=== PATIENT | female | born 1955 | race Caucasian/White ===

== ENCOUNTER → 2017-06-26 10:57 | Outpatient (CLI) | payer MEDICARE, MEDICAID, SELFPAY | PROVIDERS: Family Provider Family Medicine Geriatric Medicine; PCP Family Medicine Geriatric Medicine; Visit Provider Family Medicine Geriatric Medicine | DX: N39.0 Urinary tract infection, site not specified (principal) | CPT/HCPCS: 87086; 87088; 87186 ==

== ENCOUNTER → 2017-09-04 11:51 | Outpatient (CLI) | payer MEDICARE, MEDICAID, SELFPAY ==
[2017-09-04 12:57] LABS: Absolute Lymphocyte Count 2.09 X10^3/ul (0.83-4.51); Absolute Neutrophil Count 5.9 X10^3/uL (2.0-7.7); Basophil# 0.02 X10^3/uL; Basophil% 0.2 % (0-1); Eosinophil# 0.26 X10^3/uL; Eosinophils% 2.8 % (0-5); Hematocrit 44.6 % (37-47); Hemoglobin 14.6 g/dl (12.0-15.0); Lymphocyte # 2.09 X10^3/ul (4.0); Lymphocyte % 22.8 % (19-41); Mean Corp Hgb Conc 32.7 g/gl (32-36); Mean Corpuscular Hgb 29.2 pg (27.0-32.0); Mean Corpuscular Volume 89.2 fL (81-99); Monocyte# 0.85 X10^3/uL; Monocyte% 9.3 % (0-10); Neutrophil # 5.94 X10^3/uL (2.7-7.7); Neutrophil % 64.8 % (47-70); Platelet Count 212 K/mm3 (150-450); RBC Distribution Width CV 12.1 % (11.6-14.6); White Blood Count 9.2 K/mm3 (4.4-11.0)
[2017-09-04 13:00] LABS: POSITIVE COUNT NO; POSITIVE DIFFERENTIAL NO; POSITIVE MORPHOLOGY NO
[2017-09-04 13:27] LABS: ALB/GLOB Ratio 0.9 RATIO (0.9-2.4); AST(SGOT) 19 U/L (15-37); Alanine Aminotransfer ALT/SGPT 23 U/L (13-56); Albumin, Serum 3.3 g/dL (3.2-5.0); Alkaline Phosphatase 131 U/L (45-117); Anion Gap 6 (5-15); BUN 10 mg/dL (7-18); BUN/Creat Ratio 12.2 RATIO (10-20); Calcium,Total 8.7 mg/dL (8.5-10.1); Chloride 102 mmol/L (98-107); Creatinine, Serum 0.82 mg/dL (0.55-1.02); EST Glomerular Filtration Rate 75 mL/min (>60); Est Glom Filt Rate - Afr Amer 91 mL/min (>60); Globulin 3.8 g/dL (2.2-4.2); Glucose 108 mg/dL (74-106); Potassium 3.8 mmol/L (3.5-5.1); Protein, Total 7.1 g/dL (6.4-8.2); Sodium Level 139 mmol/L (136-145)
[2017-09-05 08:12] LABS: Vitamin D,25 Hydroxy 41.1 ng/mL (29.95-100.01)
== END ==
PROVIDERS: Family Provider Family Medicine Geriatric Medicine; PCP Family Medicine Geriatric Medicine; Visit Provider Family Medicine Geriatric Medicine
DX: E55.9 Vitamin D deficiency, unspecified (principal); R53.83 Other fatigue
CPT/HCPCS: 36415; 80053; 82306; 84443; 85025

== ENCOUNTER → 2017-12-18 13:56 | Outpatient (CLI) | payer MEDICARE, MEDICAID, SELFPAY | PROVIDERS: Family Provider Family Medicine Geriatric Medicine; PCP Family Medicine Geriatric Medicine; Visit Provider Family Medicine Geriatric Medicine | DX: L03.119 Cellulitis of unspecified part of limb (principal) | CPT/HCPCS: 87070; 87077; 87205 ==

== ENCOUNTER → 2018-08-13 14:30 | Outpatient (CLI) | payer MEDICARE, MEDICAID, SELFPAY ==
--- NOTE | 2018-08-13 14:36 | BI_ITS ---
MAMMOGRAPHY - BILATERAL SCREENING 3-D ALIS SYNTHESIS REASON FOR EXAM: Female, 62 years old. Bilateral Screening 3-D tomosynthesis PERTINENT HISTORY: No significant family history. TECHNIQUE: 2-D mammograms and 3-D Alis synthesis of the breast (s) were performed. CAD was performed. COMPARISON: April 18, 2016 FINDINGS: The breast composition is composed of scattered fibroglandular density. No dense spiculated masses or suspicious microcalcifications are identified. No architectural distortion is identified. There is no skin thickening or retraction. There has been no significant change since the prior study. BI/SCREENING MAMM (CAD), BILAT IMPRESSION: No mammographic signs of malignancy. Routine yearly mammograms recommended. ASSESSMENT CATEGORY: BIRADS Category 1: Negative. A letter regarding these results will be sent to the patient by the facility within 30 days. FOLLOW UP RECOMMENDATION: Yearly follow up mammogram recommended. (A) Approximately 10% of breast cancers are not detected by mammography. A normal mammogram should not delay biopsy of a clinically suspicious abnormality. Electronically Signed: Cristian Nolan MD at 12:41 EDT , Service support ,
== END ==
PROVIDERS: Family Provider Family Medicine Geriatric Medicine; PCP Family Medicine Geriatric Medicine; Visit Provider Family Medicine Geriatric Medicine
DX: Z12.31 Encounter for screening mammogram for malignant neoplasm of breast (principal)
CPT/HCPCS: 77063; 77067

== ENCOUNTER → 2018-11-19 13:47 | Outpatient (CLI) | payer MEDICARE, MEDICAID, SELFPAY ==
[2017-02-13 19:28] VITALS: BMI 34.4
[2018-11-19 17:24] LABS: Absolute Neutrophil Count 4.5 X10^3/uL (2.0-7.7); Basophil# 0.02 X10^3/uL; Basophil% 0.2 % (0-1); Eosinophil# 0.23 X10^3/uL; Eosinophils% 2.7 % (0-5); Hematocrit 42.9 % (37-47); Hemoglobin 13.9 g/dl (12.0-15.0); Lymphocyte % 30.6 % (19-41); Mean Corp Hgb Conc 32.4 g/gl (32-36); Mean Corpuscular Hgb 29.1 pg (27.0-32.0); Mean Corpuscular Volume 89.9 fL (81-99); Mean Platelet Vol. 10.3 fl (6.2-12.0); Monocyte# 1.11 X10^3/uL; Monocyte% 13.1 % (0-10); Neutrophil # 4.51 X10^3/uL (2.7-7.7); Platelet Count 202 K/mm3 (150-450); RBC Distribution Width CV 12.1 % (11.6-14.6); RBC Distribution Width SD 39.9 fl (35.1-43.9); Red Blood Count 4.77 M/mm3 (4.2-5.4); White Blood Count 8.5 K/mm3 (4.4-11.0)
[2018-11-19 17:31] LABS: POSITIVE COUNT NO; POSITIVE DIFFERENTIAL NO; POSITIVE MORPHOLOGY NO
[2018-11-19 17:52] LABS: Vitamin D,25 Hydroxy 26.1 ng/mL (29.95-100.01)
[2018-11-19 17:57] LABS: ALB/GLOB Ratio 0.9 RATIO (0.9-2.4); AST(SGOT) 19 U/L (15-37); Alanine Aminotransfer ALT/SGPT 32 U/L (13-56); Albumin, Serum 3.2 g/dL (3.2-5.0); Alkaline Phosphatase 153 U/L (45-117); Anion Gap 9 (5-15); BUN 15 mg/dL (7-18); BUN/Creat Ratio 17.5 RATIO (10-20); Calcium,Total 8.6 mg/dL (8.5-10.1); Chloride 103 mmol/L (98-107); Creatinine, Serum 0.86 mg/dL (0.55-1.02); EST Glomerular Filtration Rate 71 mL/min (>60); Est Glom Filt Rate - Afr Amer 86 mL/min (>60); Globulin 3.5 g/dL (2.2-4.2); Glucose 70 mg/dL (74-106); Potassium 4.2 mmol/L (3.5-5.1); Protein, Total 6.7 g/dL (6.4-8.2); Sodium Level 141 mmol/L (136-145)
== END ==
PROVIDERS: Family Provider Family Medicine Geriatric Medicine; PCP Family Medicine Geriatric Medicine; Visit Provider Family Medicine Geriatric Medicine
DX: E55.9 Vitamin D deficiency, unspecified (principal); R53.83 Other fatigue
CPT/HCPCS: 36415; 80053; 82306; 84443; 85025

== ENCOUNTER → 2019-04-15 14:15 | Outpatient (CLI) | payer MEDICARE, MEDICAID, SELFPAY ==
[2017-02-13 19:28] VITALS: BMI 34.4
[2019-04-15 16:32] LABS: Absolute Lymphocyte Count 2.26 X10^3/uL (0.83-4.51); Absolute Neutrophil Count 4.3 X10^3/uL (2.0-7.7); Basophil# 0.03 X10^3/uL; Basophil% 0.4 % (0-1); Eosinophil# 0.17 X10^3/uL; Eosinophils% 2.2 % (0-5); Hematocrit 43.5 % (37-47); Lymphocyte # 2.26 X10^3/ul (4.0); Lymphocyte % 28.9 % (19-41); Mean Corp Hgb Conc 32.2 g/dL (32-36); Mean Corpuscular Hgb 29.4 pg (27.0-32.0); Mean Corpuscular Volume 91.2 fL (81-99); Monocyte# 1.04 X10^3/uL; Monocyte% 13.3 % (0-10); NRBC Flagged by Analyzer 0 % (0-5); Neutrophil % 54.9 % (47-70); Platelet Count 200 K/mm3 (150-450); RBC Distribution Width CV 11.4 % (11.6-14.6); RBC Distribution Width SD 38.5 fl (35.1-43.9); Red Blood Count 4.77 M/mm3 (4.2-5.4); White Blood Count 7.8 K/mm3 (4.4-11.0)
[2019-04-15 16:40] LABS: Vitamin D,25 Hydroxy 42.3 ng/mL (29.95-100.01)
[2019-04-15 16:49] LABS: ALB/GLOB Ratio 0.9 RATIO (0.9-2.4); AST(SGOT) 15 U/L (15-37); Alanine Aminotransfer ALT/SGPT 21 U/L (13-56); Albumin, Serum 3.3 g/dL (3.2-5.0); Alkaline Phosphatase 118 U/L (45-117); Anion Gap 5 (5-15); BUN 16 mg/dL (7-18); BUN/Creat Ratio 16.6 RATIO (10-20); Calcium,Total 8.9 mg/dL (8.5-10.1); Chloride 106 mmol/L (98-107); Creatinine, Serum 0.96 mg/dL (0.55-1.02); EST Glomerular Filtration Rate 62 mL/min (>60); Est Glom Filt Rate - Afr Amer 75 mL/min (>60); Globulin 3.8 g/dL (2.2-4.2); Glucose 96 mg/dL (74-106); Potassium 3.9 mmol/L (3.5-5.1); Protein, Total 7.1 g/dL (6.4-8.2); Sodium Level 141 mmol/L (136-145); Thyroid Stim Hormone (TSH) 1.61 uIU/mL (0.358-3.74)
== END ==
PROVIDERS: Family Provider Family Medicine Geriatric Medicine; PCP Family Medicine Geriatric Medicine; Visit Provider Family Medicine Geriatric Medicine
DX: E55.9 Vitamin D deficiency, unspecified (principal); R53.83 Other fatigue
CPT/HCPCS: 36415; 80053; 82306; 84443; 85025

== ENCOUNTER → 2019-10-14 13:31 | Outpatient (CLI) | payer MEDICARE, SELFPAY ==
[2017-02-13 19:28] VITALS: BMI 34.4
[2019-10-14 14:35] LABS: Absolute Lymphocyte Count 2.42 X10^3/uL (0.83-4.51); Absolute Neutrophil Count 5.1 X10^3/uL (2.0-7.7); Basophil# 0.04 X10^3/uL; Basophil% 0.4 % (0-1); Eosinophil# 0.27 X10^3/uL; Hematocrit 45.7 % (37-47); Hemoglobin 14.7 g/dL (12.0-15.0); Lymphocyte # 2.42 X10^3/ul (4.0); Lymphocyte % 26.9 % (19-41); Mean Corp Hgb Conc 32.2 g/dL (32-36); Mean Corpuscular Hgb 29.6 pg (27.0-32.0); Mean Platelet Vol. 10.8 fl (6.2-12.0); Monocyte# 1.13 X10^3/uL; Monocyte% 12.5 % (0-10); NRBC Flagged by Analyzer 0 % (0-5); Neutrophil # 5.12 X10^3/uL (2.7-7.7); Neutrophil % 56.9 % (47-70); Platelet Count 224 K/mm3 (150-450); RBC Distribution Width CV 11.4 % (11.6-14.6); RBC Distribution Width SD 38.5 fl (35.1-43.9); Red Blood Count 4.97 M/mm3 (4.2-5.4)
[2019-10-14 14:52] LABS: ALB/GLOB Ratio 0.8 RATIO (0.9-2.4); AST(SGOT) 19 U/L (15-37); Alanine Aminotransfer ALT/SGPT 25 U/L (13-56); Albumin, Serum 3.3 g/dL (3.2-5.0); Alkaline Phosphatase 155 U/L (45-117); Anion Gap 6 (5-15); BUN 13 mg/dL (7-18); Calcium,Total 8.6 mg/dL (8.5-10.1); Chloride 106 mmol/L (98-107); Creatinine, Serum 0.81 mg/dL (0.55-1.02); EST Glomerular Filtration Rate 75 mL/min (>60); Est Glom Filt Rate - Afr Amer 91 mL/min (>60); Globulin 3.9 g/dL (2.2-4.2); Glucose 85 mg/dL (74-106); Potassium 4.3 mmol/L (3.5-5.1); Protein, Total 7.2 g/dL (6.4-8.2); Sodium Level 143 mmol/L (136-145); Thyroid Stim Hormone (TSH) 1.61 uIU/mL (0.358-3.74)
[2019-10-14 15:02] LABS: Vitamin D,25 Hydroxy 29.7 ng/mL
== END ==
PROVIDERS: PCP Family Medicine Geriatric Medicine; Visit Provider Family Medicine Geriatric Medicine
DX: E55.9 Vitamin D deficiency, unspecified (principal); R53.83 Other fatigue
CPT/HCPCS: 36415; 80053; 82306; 84443; 85025

== ENCOUNTER → 2020-05-14 17:38 | Outpatient (CLI) | payer MEDICARE, MEDICAID, SELFPAY | PROVIDERS: PCP Family Medicine Geriatric Medicine; Referring Provider Family Medicine Geriatric Medicine; Visit Provider Family Medicine Geriatric Medicine | DX: R06.89 Other abnormalities of breathing (principal) | CPT/HCPCS: 87635; C9803; U0003 ==

== ENCOUNTER → 2020-06-22 14:24 | Outpatient (CLI) | payer MEDICARE, MEDICAID, SELFPAY ==
[2017-02-13 19:28] VITALS: BMI 34.4
== END ==
PROVIDERS: PCP Family Medicine Geriatric Medicine; Visit Provider Family Medicine Geriatric Medicine
DX: N39.0 Urinary tract infection, site not specified (principal)
CPT/HCPCS: 87077; 87086; 87088; 87186

== ENCOUNTER → 2020-07-08 13:00 | Outpatient (CLI) | payer MEDICARE, MEDICAID, SELFPAY ==
[2017-02-13 19:28] VITALS: BMI 34.4
--- NOTE | 2020-07-08 13:27 | CT_ITS ---
STUDY: LOW DOSE CT LUNG CANCER SCREENING REASON FOR EXAM: Female, 64 years old. LUNG SCREENING RADIATION DOSAGE (If Supplied By Facility): CTDIvol = ( 3.02 ) mGy, DLP = ( 98.92 ) mGycm TECHNIQUE: No contrast was administered. Low dose technique was utilized (average mAS-38 and kVp 120). 1.25 mm axial source images with a slice interval of 1.25-mm were reconstructed in lung windows. 2.5 mm axial source images with a slice interval of 2.5-mm were reconstructed in lung windows. 5.0 mm axial source images with a slice interval of 5.0-mm were reconstructed in soft tissue windows. Nodule measured using lung windows on PACS and/or independent workstation with automated measurement of minimum and maximum diameter. Nodule measurement reported as average diameter rounded to the nearest whole number. Growth is defined as an increase ins size of greater than 1.5 mm. COMPARISON: Comparison is made with prior study dated 10/03/2016. NODULES: No suspicious nodules are seen. Emphysema: Mild degree of emphysematous changes. Mild scarring at the lung bases as well as in the lung apices and anterior aspect of the right middle lobe and lingular segment of the left upper lobe. Endobronchial lesion: None Aorta: Mild atherosclerotic calcific plaque at the level of the aortic arch. Coronary arteries: Coronary artery calcification. Heart: Unremarkable Mediastinal nodes: Small mediastinal lymph nodes. Calcified right hilar lymph nodes. Other chest and abdominal findings: CT/Low Dose CT Lung Screening IMPRESSION: Lung-RADS category 2 - Continue annual screening with LDCT in 12 months. IMPORTANT NOTES FOR USE: ACR Lung-RADS Version 1.0 Assessment Categories Release Date: September 22, 2013 Category: Coded 0-4 bases on nodule(s) with highest degree of suspicion. Negative screen is defined as categories 1 and 2; a positive screen is defined as categories 3 and 4. Category 3 and 4A nodules that are unchanged on interval CT should be coded as category 2, and individuals returned to screening in 12 months. Category 4X: Category 3 or 4 nodules with additional imaging findings that increase the suspicion of lung cancer, such as spiculation, GGN that doubles in size in 1 year, enlarged lymph notes, etc. Category Modifiers: S (significant finding unrelated to lung cancer) and C (prior history of treated lung cancer) may be added to the 0-4 Lung-RADS Electronically Signed: Hemal Hart MD at 12:55 EST , Service support ,
== END ==
PROVIDERS: PCP Family Medicine Geriatric Medicine; Referring Provider Family Medicine Geriatric Medicine; Visit Provider Family Medicine Geriatric Medicine
DX: Z12.2 Encounter for screening for malignant neoplasm of respiratory organs (principal); Z87.891 Personal history of nicotine dependence; R05 Cough
CPT/HCPCS: 71271

== ENCOUNTER → 2020-07-20 14:25 | Outpatient (CLI) | payer MEDICARE, MEDICAID, SELFPAY ==
[2017-02-13 19:28] VITALS: BMI 34.4
== END ==
PROVIDERS: PCP Family Medicine Geriatric Medicine; Visit Provider Family Medicine Geriatric Medicine
DX: R68.83 Chills (without fever) (principal)
CPT/HCPCS: 87633; 87635; C9803; U0005; U0003

== ENCOUNTER → 2020-08-16 | Outpatient (CLI) | payer MEDICARE, MEDICAID, SELFPAY ==
[2017-02-13 19:28] VITALS: BMI 34.4
== END | disposition home or self-care (01) ==
LOC: LABSPEC 15:05
PROVIDERS: PCP Family Medicine Geriatric Medicine; Visit Provider Family Medicine Geriatric Medicine
DX: N39.0 Urinary tract infection, site not specified (principal)
CPT/HCPCS: 87077; 87086; 87088; 87186

== ENCOUNTER → 2020-08-31 12:51 | Outpatient (CLI) | payer MEDICARE, MEDICAID, SELFPAY ==
--- NOTE | 2020-08-31 13:32 | ST.MBS ---
Modified Barium Swallow - Patient Information Study Date: 08/31/20 Study Time: 13:00 Direct Billable Minutes: 120 Total Minutes procedure & reportin Diagnosis: dysphagia, unspecified (R13.10) Referring Physician: Fracisco Fowler Chi Reason for Referral: Patient and caregiver state pt's place of employment has been finding that patient is demonstrating increased coughing with meals/drinks. MBS study ordered by physician to determine presence and/or degree of aspiration. Medical History: The patient is a 64/F with [employer] history of smoking but no other significant medical history listed in medical chart. Current Diet Ordered: regular textures/thin liquids Dentition: Upper Dentures, Lower Dentures Respiratory Status: Oxygenating on Room Air - Study Findings Consistencies: Thin Liquid, [place] Thick Liquid, Honey Thick Liquid, Pudding, Cookie - Penetration-Aspiration Scale Penetration-Aspiration Scale: OBJECTIVE ASSESSMENT OF SWALLOW FUNCTION (QUANTITATIVE ? PER TRIAL): PENETRATION / ASPIRATION SCALE (ORTEGA): 1 = does not enter airway 2 = enters airway/above vocal folds/ejected 3 = enters airway/above vocal folds/not ejected 4 = enters airway/contacts vocal folds/ejected 5 = enters airway/contacts vocal folds/not ejected 6 = enters airway/below vocal folds/ejected 7 = enters airway/below vocal folds/not ejected despite effort 8 = enters airway/below vocal folds/no effort - Penetration-Aspiration Scale Score Thin Liquid via teaspoon Result: 2= enter airway/above vocal folds/ejected Thin Liquid via small single sip from cup Result: 4= enters airway/contacts vocal folds/ejected Thin Liquid via large single sip from cup Result: 4= enters airway/contacts vocal folds/ejected Thin Liquid via sequential sips from cup Result: 5= enters airways/contacts vocal folds/not ejected [place] Thick Liquid via large single sip from cup Result: 2= enter airway/above vocal folds/ejected Honey Thick Liquid via large single sip from cup Result: 1= does not enter airway Pudding via teaspoon Result: 1= does not enter airway Cookie Result: 2= enter airway/above vocal folds/ejected - penetration above the vocal cords of cookie mixed with pudding trial Thin Liquid via single sip from straw Result: 5= enters airways/contacts vocal folds/not ejected Thin Liquid via sequential sips from straw Result: 5= enters airways/contacts vocal folds/not ejected - due to patient change in positioning, unable to definitely rule out aspiration with this trial - Oral Phase Labial Seal: Escape progressing to mid-chin Tongue Control During Bolus Hold: Posterior escape of greater than half of bolus Bolus Preparation/Mastication: Slow prolonged chewing/mashing with complete recollection Bolus Transport/Lingual Motion: Slowed tongue motion Oral Residue: Residue collection on oral structures - Pharyngeal Phase Initiation of Pharyngeal Swallow: Bolus head in pyriforms Soft Palate Elevation: No bolus between soft palate and pharyngeal wall Laryngeal Elevation: Partial superior movement thyroid cart/partial apprx aryt-epig petiole Anterior Hyoid Excursion: Partial anterior movement Epiglottic Movement: Partial inversion Laryngeal Vestibule Closure at Height of Swallow: Incomplete; narrow column of air/contrast in laryngeal vestibule Pharyngeal Stripping Wave: Present - diminished Pharyngoesophageal Segment Opening: Parital distension and partial duration; parital obstruction of flow Tongue Base Retraction: Trace column of contrast between tongue base & post. pharyngeal wall Pharyngeal Residue: Trace residue within or on pharyngeal structures - Diagnosis/Impression Diagnosis: mild-moderate oropharyngeal dysphagia (R13.12) Impression: The patient completed a mbs study this date accompanied by her caregiver. Pt trialed thin liquids with penetration of liquids above and/or contacting vocal cords with each trial. With trials of thin liquids via sequential sips from cup and all trials via straw patient had penetration of the liquid to the vocal cord without ejection of the liquid placing pt at higher risk for aspiration. Pt demonstrated poor timing of swallow initiation resulting in greater than half the bolus spilling to vallecula and beyond prior to swallow initiation. The patient demonstrated effortful mastication of solid Donna Doone shortbread cookie with mild oral residue remaining. When patient was cued to take 2nd swallow to clear oral residue of Donna Doone cookie, patient stated she felt she didn't need to. Despite no aspiration being demonstrated at this date and time, patient is considered to be at higher risk of aspiration given amount of bolus penetrated with each trial, poor swallow onset timing, and decreased laryngeal elevation and hyoid excursion. Skilled ST intervention recommended for compensatory strategy training, diet texture/liquid management and analysis, and oropharyngeal strengthening exercises to improve overall swallow function. - Recommendations Diet: Thin Liquids Comment: soft and bite sized textures Compensatory Strategies: Small Bites, Small Sips, No Straws, Slow Rate, Sitting upright, Minimize/decrease distractions Supervision: Distant Supervision Recommend Repeat Modified Barium Swallow: TBD Need for Skilled Speech Therapy Services: Yes - for oropharyngeal strengthening & comp. strategies Education Completed: 1. Described result of evaluation., 2. Pt understands evaluation & agrees with goals and treatment plan., 4. Family/caregivers understand evaluation & agree w/ goals & tx plan. - Status Active ST Patient: Active - Contact Information [facility] Speech Therapy:: Madison Fernandez MA, CCC-PREVENTION COORDINATOR [address] [address] [email or web address]
== END ==
PROVIDERS: PCP Family Medicine Geriatric Medicine; Referring Provider Family Medicine Geriatric Medicine; Visit Provider Family Medicine Geriatric Medicine
DX: R13.10 Dysphagia, unspecified (principal)
CPT/HCPCS: 74230; 92611

== ENCOUNTER 2020-09-21 13:08 | Outpatient (RCR) | payer MEDICARE, MEDICAID, SELFPAY ==
--- NOTE | 2020-09-21 14:07 | ST ---
[facility] Speech Pathology [address] [place] [address] Modified Barium Swallow Study MR#: [id number] Acct: [id number] Name: JERICA DICKEY Rep #: [id number] : 1955 64 From: Madison Fernandez [facility]3]-NET SOLUTIONS ARCHITECT, [place] Modified Barium Swallow - Patient Information Study Date: 08/31/20 Study Time: 13:00 Direct Billable Minutes: 120 Total Minutes procedure & reportin Diagnosis: dysphagia, unspecified (R13.10) Referring Physician: Fracisco Fowler Chi Reason for Referral: Patient and caregiver state pt's place of employment has been finding that patient is demonstrating increased coughing with meals/drinks. MBS study ordered by physician to determine presence and/or degree of aspiration. Medical History: The patient is a 64/F with residential history of smoking but no other significant medical history listed in medical chart. Current Diet Ordered: regular textures/thin liquids Dentition: Upper Dentures, Lower Dentures Respiratory Status: Oxygenating on Room Air - Study Findings Consistencies: Thin Liquid, [place] Thick Liquid, Honey Thick Liquid, Pudding, Cookie - Penetration-Aspiration Scale Penetration-Aspiration Scale: OBJECTIVE ASSESSMENT OF SWALLOW FUNCTION (QUANTITATIVE ? PER TRIAL): PENETRATION / ASPIRATION SCALE (ORTEGA): 1 = does not enter airway 2 = enters airway/above vocal folds/ejected 3 = enters airway/above vocal folds/not ejected 4 = enters airway/contacts vocal folds/ejected 5 = enters airway/contacts vocal folds/not ejected 6 = enters airway/below vocal folds/ejected 7 = enters airway/below vocal folds/not ejected despite effort 8 = enters airway/below vocal folds/no effort - Penetration-Aspiration Scale Score Thin Liquid via teaspoon Result: 2= enter airway/above vocal folds/ejected Thin Liquid via small single sip from cup Result: 4= enters airway/contacts vocal folds/ejected Thin Liquid via large single sip from cup Result: 4= enters airway/contacts vocal folds/ejected Thin Liquid via sequential sips from cup Result: 5= enters airways/contacts vocal folds/not ejected [place] Thick Liquid via large single sip from cup Result: 2= enter airway/above vocal folds/ejected [place] Thick Liquid via large single sip from cup Result: 1= does not enter airway Pudding via teaspoon Result: 1= does not enter airway Cookie Result: 2= enter airway/above vocal folds/ejected - penetration above the vocal cords of cookie mixed with pudding trial Thin Liquid via single sip from straw Result: 5= enters airways/contacts vocal folds/not ejected Thin Liquid via sequential sips from straw Result: 5= enters airways/contacts vocal folds/not ejected - due to patient change in positioning, unable to definitely rule out aspiration with this trial - Oral Phase Labial Seal: Escape progressing to mid-chin Tongue Control During Bolus Hold: Posterior escape of greater than half of bolus Bolus Preparation/Mastication: Slow prolonged chewing/mashing with complete recollection Bolus Transport/Lingual Motion: Slowed tongue motion Oral Residue: Residue collection on oral structures - Pharyngeal Phase Initiation of Pharyngeal Swallow: Bolus head in pyriforms Soft Palate Elevation: No bolus between soft palate and pharyngeal wall Laryngeal Elevation: Partial superior movement thyroid cart/partial apprx aryt-epig petiole Anterior Hyoid Excursion: Partial anterior movement Epiglottic Movement: Partial inversion Laryngeal Vestibule Closure at Height of Swallow: Incomplete; narrow column of air/contrast in laryngeal vestibule Pharyngeal Stripping Wave: Present - diminished Pharyngoesophageal Segment Opening: Parital distension and partial duration; parital obstruction of flow Tongue Base Retraction: Trace column of contrast between tongue base & post. pharyngeal wall Pharyngeal Residue: Trace residue within or on pharyngeal structures - Diagnosis/Impression Diagnosis: mild-moderate oropharyngeal dysphagia (R13.12) Impression: The patient completed a mbs study this date accompanied by her caregiver. Pt trialed thin liquids with penetration of liquids above and/or contacting vocal cords with each trial. With trials of thin liquids via sequential sips from cup and all trials via straw patient had penetration of the liquid to the vocal cord without ejection of the liquid placing pt at higher risk for aspiration. Pt demonstrated poor timing of swallow initiation resulting in greater than half the bolus spilling to vallecula and beyond prior to swallow initiation. The patient demonstrated effortful mastication of solid Donna Doone shortbread cookie with mild oral residue remaining. When patient was cued to take 2nd swallow to clear oral residue of Donna Doone cookie, patient stated she felt she didn't need to. Despite no aspiration being demonstrated at this date and time, patient is considered to be at higher risk of aspiration given amount of bolus penetrated with each trial, poor swallow onset timing, and decreased laryngeal elevation and hyoid excursion. Skilled ST intervention recommended for compensatory strategy training, diet texture/liquid management and analysis, and oropharyngeal strengthening exercises to improve overall swallow function. - Recommendations Diet: Thin Liquids Comment: soft and bite sized textures Compensatory Strategies: Small Bites, Small Sips, No Straws, Slow Rate, Sitting upright, Minimize/decrease distractions Supervision: Distant Supervision Recommend Repeat Modified Barium Swallow: TBD Need for Skilled Speech Therapy Services: Yes - for oropharyngeal strengthening & comp. strategies Education Completed: 1. Described result of evaluation., 2. Pt understands evaluation & agrees with goals and treatment plan., 4. Family/caregivers understand evaluation & agree w/ goals & tx plan. - Status Active ST Patient: Active - Contact Information [facility] Speech Therapy:: Madison Fernandez MA, CCC-NET SOLUTIONS ARCHITECT [place] [address] [email or web address] 08/31/20 140 <Electronically signed by Madison Fernandez CCC-NET SOLUTIONS ARCHITECT, M.A.> Date Madison Fernandez CCC-NET SOLUTIONS ARCHITECT, M.A. Co-Signature Required for all Medicare patients Date/Time Co-Signature CC: ~
--- NOTE | 2020-09-23 08:37 | HP.SP.AD ---
History - History Date of Eval: 09/21/20 Medical Diagnosis (from RX): dysphagia Date of Onset of Diagnosis: 08/31/2020 Previous speech therapy: No Smoking Status: Current every day smoker Hx Smoking: Yes Years Smokin Hx Tobacco Use: Yes Hx Smoking Exposure: Yes - Pain Is pain an issue with your current prescribed condition?: No - Personal Occupation: Works at [employer] Visual Assistive Devices: Glasses Patients Living Arrangements: alone with support help Patient Allergies - Allergies Allergies No Known Allergies Allergy (Verified 02/13/17 19:21) Modified Barium Results Hx MBS Report Entered: Yes MBS Results (from prior exam): 09/21/20 14:07 [facility] [address] [place] [id number] Modified Barium Swallow Study MR#: [id number] Acct: [id number] Name: JERICA DICKEY Rep #: [id number] : 1955 64 From: Madison Fernandez [facility] Modified Barium Swallow - Patient Information Study Date: 08/31/20 Study Time: 13:00 Direct Billable Minutes: 120 Total Minutes procedure & reportin Diagnosis: dysphagia, unspecified (R13.10) Referring Physician: Fracisco Fowler Chi Reason for Referral: Patient and caregiver state pt's place of employment has been finding that patient is demonstrating increased coughing with meals/drinks. MBS study ordered by physician to determine presence and/or degree of aspiration. 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 Current Diet Ordered: regular textures/thin liquids Dentition: Upper Dentures, Lower Dentures Respiratory Status: Oxygenating on Room Air - Study Findings Consistencies: Thin Liquid, [place] Thick Liquid, Honey Thick Liquid, Pudding, Cookie - Penetration-Aspiration Scale Penetration-Aspiration Scale: OBJECTIVE ASSESSMENT OF SWALLOW FUNCTION (QUANTITATIVE ? PER TRIAL): PENETRATION / ASPIRATION SCALE (ORTEGA): 1 = does not enter airway 2 = enters airway/above vocal folds/ejected 3 = enters airway/above vocal folds/not ejected 4 = enters airway/contacts vocal folds/ejected 5 = enters airway/contacts vocal folds/not ejected 6 = enters airway/below vocal folds/ejected 7 = enters airway/below vocal folds/not ejected despite effort 8 = enters airway/below vocal folds/no effort - Penetration-Aspiration Scale Score Thin Liquid via teaspoon Result: 2= enter airway/above vocal folds/ejected Thin Liquid via small single sip from cup Result: 4= enters airway/contacts vocal folds/ejected Thin Liquid via large single sip from cup Result: 4= enters airway/contacts vocal folds/ejected Thin Liquid via sequential sips from cup Result: 5= enters airways/contacts vocal folds/not ejected [place] Thick Liquid via large single sip from cup Result: 2= enter airway/above vocal folds/ejected [place] Thick Liquid via large single sip from cup Result: 1= does not enter airway Pudding via teaspoon Result: 1= does not enter airway Cookie Result: 2= enter airway/above vocal folds/ejected - penetration above the vocal cords of cookie mixed with pudding trial Thin Liquid via single sip from straw Result: 5= enters airways/contacts vocal folds/not ejected Thin Liquid via sequential sips from straw Result: 5= enters airways/contacts vocal folds/not ejected - due to patient change in positioning, unable to definitely rule out aspiration with this trial - Oral Phase Labial Seal: Escape progressing to mid-chin Tongue Control During Bolus Hold: Posterior escape of greater than half of bolus Bolus Preparation/Mastication: Slow prolonged chewing/mashing with complete recollection Bolus Transport/Lingual Motion: Slowed tongue motion Oral Residue: Residue collection on oral structures - Pharyngeal Phase Initiation of Pharyngeal Swallow: Bolus head in pyriforms Soft Palate Elevation: No bolus between soft palate and pharyngeal wall Laryngeal Elevation: Partial superior movement thyroid cart/partial apprx aryt-epig petiole Anterior Hyoid Excursion: Partial anterior movement Epiglottic Movement: Partial inversion Laryngeal Vestibule Closure at Height of Swallow: Incomplete; narrow column of air/contrast in laryngeal vestibule Pharyngeal Stripping Wave: Present - diminished Pharyngoesophageal Segment Opening: Parital distension and partial duration; parital obstruction of flow Tongue Base Retraction: Trace column of contrast between tongue base & post. pharyngeal wall Pharyngeal Residue: Trace residue within or on pharyngeal structures - Diagnosis/Impression Diagnosis: mild-moderate oropharyngeal dysphagia (R13.12) Impression: The patient completed a mbs study this date accompanied by her caregiver. Pt trialed thin liquids with penetration of liquids above and/or contacting vocal cords with each trial. With trials of thin liquids via sequential sips from cup and all trials via straw patient had penetration of the liquid to the vocal cord without ejection of the liquid placing pt at higher risk for aspiration. Pt demonstrated poor timing of swallow initiation resulting in greater than half the bolus spilling to vallecula and beyond prior to swallow initiation. The patient demonstrated effortful mastication of solid Donna Doone shortbread cookie with mild oral residue remaining. When patient was cued to take 2nd swallow to clear oral residue of Donna Doone cookie, patient stated she felt she didn't need to. Despite no aspiration being demonstrated at this date and time, patient is considered to be at higher risk of aspiration given amount of bolus penetrated with each trial, poor swallow onset timing, and decreased laryngeal elevation and hyoid excursion. Skilled ST intervention recommended for compensatory strategy training, diet texture/liquid management and analysis, and oropharyngeal strengthening exercises to improve overall swallow function. - Recommendations Diet: Thin Liquids Comment: soft and bite sized textures Compensatory Strategies: Small Bites, Small Sips, No Straws, Slow Rate, Sitting upright, Minimize/decrease distractions Supervision: Distant Supervision Recommend Repeat Modified Barium Swallow: TBD Need for Skilled Speech Therapy Services: Yes - for oropharyngeal strengthening & comp. strategies Education Completed: 1. Described result of evaluation., 2. Pt understands evaluation & agrees with goals and treatment plan., 4. Family/caregivers understand evaluation & agree w/ goals & tx plan. - Status Active ST Patient: Active - Contact Information [facility] Speech Therapy:: Madison Fernandez MA, CCC-COOK PRESSURE [address] [address] [email or web address] 08/31/20 [id number] <Electronically signed by Madison Fernandez CCC-COOK PRESSURE, MaTraA.> Date Madison Fernandez CCC-COOK PRESSURE, M.A. Co-Signature Required for all Medicare patients Date/Time Co-Signature CC: ~ Initialized on 09/21/20 14:07 - END OF NOTE Dysphagia Assessment - Swallowing Impairment Contributing Factors to Swallowing Impairment: Reduced Alertness or Attention, Difficulty Following Directions, Mastication Inefficiency, Delayed Swallow Initiation, Reduced Laryngeal Excursion - Impact Impact on Safety & Functioning: Risk for Aspiration Comments: Patient cognitive abilities may impede her abilities to follow recommendations when director sales support is not with her. - Diet Texture Recommendations Liquids: Thin Other: IDDSI level 5 minced and moist, with thin liquied - Safety Saftey Precautions/Swallowing Recommendations (Check all that Apply): Reduce Distractions, Upright Position at Least 30 Minutes After Meals, Small Sips & Bites when Eating, No Straw, Alternate Liquids & Solids Other Impressions - Comments Additional comments -: Patient appeared anxious. Her ability to understand instructions and follow through with recommendations may be difficult due to cognitive abilities. Patient stated that a typical breakfast consists of eggs and toast. Lunch is usually a sandwich and bag of Fritos and can of pop. Supper is usually a TV dinner. Patient?s program and research coordinator stated that it usually takes patient an hour to eat a meal. Patient does have both upper and lower dentures. . The results and recommendations from the MBS was gone over with the patient and program and research coordinator. Therapist was able to get patient to take a drink of water, and she was observed to take small sips independently. Therapist then asked patient to try a Donna doon so she could observe patient eating. Patient stated she had just eaten and was not hungry and refused. Therapist gave patient handout on Level 5 IDDIS Moist and soft and went over handout with her. Therapist went over effortful swallow with simplified instructions to facilitate patient?s ability to understand and complete the exercise. clothing patternmaker stated that on Tuesdays when she is with patient, she will encourage patient to complete the exercise The therapist discussed that a soft/moist diet was recommended as the safest diet for patient. . In talking with patient, she likes her Fritos/chips and will continue to eat them. Therapist encourage patient to alternate a sip of liquid after every bite. evaluation comments -: Patient appeared anxious. Her ability to understand instructions and follow through with recommendations may be difficult due to cognitive abilities. Patient stated that a typical breakfast consists of eggs and toast. Lunch is usually a sandwich and bag of Fritos and can of pop. Supper is usually a TV dinner. Patient?s program and research coordinator stated that it usually takes patient an hour to eat a meal. Patient does have both upper and lower dentures. . The results and recommendations from the MBS was gone over with the patient and program and research coordinator. Therapist was able to get patient to take a drink of water, and she was observed to take small sips independently. Therapist then asked patient to try a Donna doon so she could observe patient eating. Patient stated she had just eaten and was not hungry and refused. Therapist gave patient handout on Level 5 IDDIS Moist and soft and went over handout with her. Therapist went over effortful swallow with simplified instructions to facilitate patient?s ability to understand and complete the exercise. clothing patternmaker stated that on Tuesdays when she is with patient, she will encourage patient to complete the exercise The therapist discussed that a soft/moist diet was recommended as the safest diet for patient. . In talking with patient, she likes her Fritos/chips and will continue to eat them. Therapist encourage patient to alternate a sip of liquid after every bite. Plan - Plan Plan: Therapist will keep in phone contact with patient and program and research coordinator to monitor patient?s swallowing status and monitor her progress in completing the exercise. It was discussed with animal care worker that if patient?s begins to have increased episodes of choking, or begins to have upper respiratory infections to contact the speech Department discuss making further changes to patient?s diet. - Recommendations MBS: No Treatment Warranted: No - Prognosis Prognosis: Fair - Goal #1-5 Goal #1: Therapist will keep in phone contact with patient and program and research coordinator to monitor patient?s swallowing status and monitor her progress in completing the exercise. It was discussed with animal care worker that if patient?s begins to have increased episodes of choking, or begins to have upper respiratory infections to contact the speech Department discuss making further changes to patient?s diet. Education - Patient Instruction Patient Education: Safety Precautions, Diet Level, Home Exercise Program Other Education: clothing patternmaker was present and handouts were given to her. Teaching Method: Discussion, Handout Response to teaching: Reinforcement needed
--- NOTE | 2020-09-23 08:46 | HP.SP.AD ---
History - History Date of Eval: 09/21/20 Medical Diagnosis (from RX): dysphagia Date of Onset of Diagnosis: 08/31/2020 Previous speech therapy: No Smoking Status: Current every day smoker Hx Smoking: Yes Years Smokin Hx Tobacco Use: Yes Hx Smoking Exposure: Yes - Pain Is pain an issue with your current prescribed condition?: No - Personal Occupation: Works at [employer] Visual Assistive Devices: Glasses Patients Living Arrangements: alone with support help Patient Allergies - Allergies Allergies No Known Allergies Allergy (Verified 02/13/17 19:21) Modified Barium Results Hx MBS Report Entered: Yes MBS Results (from prior exam): 09/21/20 14:07 [facility] [address] [place] [id number] Modified Barium Swallow Study MR#: [id number] Acct: [id number] Name: JERICA DICKEY Rep #: [id number] : 1955 64 From: Madison Fernandez [facility]-STEN[facility], M.A. Modified Barium Swallow - Patient Information Study Date: 08/31/20 Study Time: 13:00 Direct Billable Minutes: 120 Total Minutes procedure & reportin Diagnosis: dysphagia, unspecified (R13.10) Referring Physician: Fracisco Fowler Chi Reason for Referral: Patient and caregiver state pt's place of employment has been finding that patient is demonstrating increased coughing with meals/drinks. MBS study ordered by physician to determine presence and/or degree of aspiration. 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 Current Diet Ordered: regular textures/thin liquids Dentition: Upper Dentures, Lower Dentures Respiratory Status: Oxygenating on Room Air - Study Findings Consistencies: Thin Liquid, [place] Thick Liquid, Honey Thick Liquid, Pudding, Cookie - Penetration-Aspiration Scale Penetration-Aspiration Scale: OBJECTIVE ASSESSMENT OF SWALLOW FUNCTION (QUANTITATIVE ? PER TRIAL): PENETRATION / ASPIRATION SCALE (ORTEGA): 1 = does not enter airway 2 = enters airway/above vocal folds/ejected 3 = enters airway/above vocal folds/not ejected 4 = enters airway/contacts vocal folds/ejected 5 = enters airway/contacts vocal folds/not ejected 6 = enters airway/below vocal folds/ejected 7 = enters airway/below vocal folds/not ejected despite effort 8 = enters airway/below vocal folds/no effort - Penetration-Aspiration Scale Score Thin Liquid via teaspoon Result: 2= enter airway/above vocal folds/ejected Thin Liquid via small single sip from cup Result: 4= enters airway/contacts vocal folds/ejected Thin Liquid via large single sip from cup Result: 4= enters airway/contacts vocal folds/ejected Thin Liquid via sequential sips from cup Result: 5= enters airways/contacts vocal folds/not ejected [place] Thick Liquid via large single sip from cup Result: 2= enter airway/above vocal folds/ejected [place] Thick Liquid via large single sip from cup Result: 1= does not enter airway Pudding via teaspoon Result: 1= does not enter airway Cookie Result: 2= enter airway/above vocal folds/ejected - penetration above the vocal cords of cookie mixed with pudding trial Thin Liquid via single sip from straw Result: 5= enters airways/contacts vocal folds/not ejected Thin Liquid via sequential sips from straw Result: 5= enters airways/contacts vocal folds/not ejected - due to patient change in positioning, unable to definitely rule out aspiration with this trial - Oral Phase Labial Seal: Escape progressing to mid-chin Tongue Control During Bolus Hold: Posterior escape of greater than half of bolus Bolus Preparation/Mastication: Slow prolonged chewing/mashing with complete recollection Bolus Transport/Lingual Motion: Slowed tongue motion Oral Residue: Residue collection on oral structures - Pharyngeal Phase Initiation of Pharyngeal Swallow: Bolus head in pyriforms Soft Palate Elevation: No bolus between soft palate and pharyngeal wall Laryngeal Elevation: Partial superior movement thyroid cart/partial apprx aryt-epig petiole Anterior Hyoid Excursion: Partial anterior movement Epiglottic Movement: Partial inversion Laryngeal Vestibule Closure at Height of Swallow: Incomplete; narrow column of air/contrast in laryngeal vestibule Pharyngeal Stripping Wave: Present - diminished Pharyngoesophageal Segment Opening: Parital distension and partial duration; parital obstruction of flow Tongue Base Retraction: Trace column of contrast between tongue base & post. pharyngeal wall Pharyngeal Residue: Trace residue within or on pharyngeal structures - Diagnosis/Impression Diagnosis: mild-moderate oropharyngeal dysphagia (R13.12) Impression: The patient completed a mbs study this date accompanied by her caregiver. Pt trialed thin liquids with penetration of liquids above and/or contacting vocal cords with each trial. With trials of thin liquids via sequential sips from cup and all trials via straw patient had penetration of the liquid to the vocal cord without ejection of the liquid placing pt at higher risk for aspiration. Pt demonstrated poor timing of swallow initiation resulting in greater than half the bolus spilling to vallecula and beyond prior to swallow initiation. The patient demonstrated effortful mastication of solid [place] Do[place] shortbread cookie with mild oral residue remaining. When patient was cued to take 2nd swallow to clear oral residue of [place] cookie, patient stated she felt she didn't need to. Despite no aspiration being demonstrated at this date and time, patient is considered to be at higher risk of aspiration given amount of bolus penetrated with each trial, poor swallow onset timing, and decreased laryngeal elevation and hyoid excursion. Skilled ST intervention recommended for compensatory strategy training, diet texture/liquid management and analysis, and oropharyngeal strengthening exercises to improve overall swallow function. - Recommendations Diet: Thin Liquids Comment: soft and bite sized textures Compensatory Strategies: Small Bites, Small Sips, No Straws, Slow Rate, Sitting upright, Minimize/decrease distractions Supervision: Distant Supervision Recommend Repeat Modified Barium Swallow: TBD Need for Skilled Speech Therapy Services: Yes - for oropharyngeal strengthening & comp. strategies Education Completed: 1. Described result of evaluation., 2. Pt understands evaluation & agrees with goals and treatment plan., 4. Family/caregivers understand evaluation & agree w/ goals & tx plan. - Status Active ST Patient: Active - Contact Information [facility] Speech Therapy:: Madison Fernandez MA, CCC-STENOTYPIST [address] [address] [email or web address] 08/31/20 2558 <Electronically signed by Madison Fernandez CCC-STENOTYPIST, MTaraA.> Date Madison Fernandez CCC-STENOTYPIST, M.A. Co-Signature Required for all Medicare patients Date/Time Co-Signature CC: ~ Initialized on 09/21/20 14:07 - END OF NOTE Dysphagia Assessment - Swallowing Impairment Contributing Factors to Swallowing Impairment: Reduced Alertness or Attention, Difficulty Following Directions, Mastication Inefficiency, Delayed Swallow Initiation, Reduced Laryngeal Excursion - Impact Impact on Safety & Functioning: Risk for Aspiration Comments: Patient cognitive abilities may impede her abilities to follow recommendations when client application support engineer is not with her. - Diet Texture Recommendations Liquids: Thin Other: IDDSI level 6 soft and bite sized, with thin liquied - Safety Saftey Precautions/Swallowing Recommendations (Check all that Apply): Reduce Distractions, Upright Position at Least 30 Minutes After Meals, Small Sips & Bites when Eating, No Straw, Alternate Liquids & Solids Other Impressions - Comments Additional comments -: Patient appeared anxious. Her ability to understand instructions and follow through with recommendations may be difficult due to cognitive abilities. Patient stated that a typical breakfast consists of eggs and toast. Lunch is usually a sandwich and bag of Fritos and can of pop. Supper is usually a TV dinner. Patient?s plant anatomist stated that it usually takes patient an hour to eat a meal. Patient does have both upper and lower dentures. . The results and recommendations from the MBS was gone over with the patient and plant anatomist. Therapist was able to get patient to take a drink of water, and she was observed to take small sips independently. Therapist then asked patient to try a Donna doon so she could observe patient eating. Patient stated she had just eaten and was not hungry and refused. Therapist gave patient handout on Level 6 IDDIS soft and bite sized and went over handout with her. Therapist went over effortful swallow with simplified instructions to facilitate patient?s ability to understand and complete the exercise. laboratory animal caretaker stated that on Tuesdays when she is with patient, she will encourage patient to complete the exercise The therapist discussed that a soft/moist diet was recommended as the safest diet for patient. . In talking with patient, she likes her Fritos/chips and will continue to eat them. Therapist encourage patient to alternate a sip of liquid after every bite. evaluation comments -: Patient appeared anxious. Her ability to understand instructions and follow through with recommendations may be difficult due to cognitive abilities. Patient stated that a typical breakfast consists of eggs and toast. Lunch is usually a sandwich and bag of Fritos and can of pop. Supper is usually a TV dinner. Patient?s plant anatomist stated that it usually takes patient an hour to eat a meal. Patient does have both upper and lower dentures. . The results and recommendations from the MBS was gone over with the patient and plant anatomist. Therapist was able to get patient to take a drink of water, and she was observed to take small sips independently. Therapist then asked patient to try a Donna doon so she could observe patient eating. Patient stated she had just eaten and was not hungry and refused. Therapist gave patient handout on Level 5 IDDIS Moist and soft and went over handout with her. Therapist went over effortful swallow with simplified instructions to facilitate patient?s ability to understand and complete the exercise. laboratory animal caretaker stated that on Tuesdays when she is with patient, she will encourage patient to complete the exercise The therapist discussed that a soft/moist diet was recommended as the safest diet for patient. . In talking with patient, she likes her Fritos/chips and will continue to eat them. Therapist encourage patient to alternate a sip of liquid after every bite. Plan - Plan Plan: Therapist will keep in phone contact with patient and plant anatomist to monitor patient?s swallowing status and monitor her progress in completing the exercise. It was discussed with zoo caretaker that if patient?s begins to have increased episodes of choking, or begins to have upper respiratory infections to contact the speech Department discuss making further changes to patient?s diet. - Recommendations MBS: No Treatment Warranted: No - Prognosis Prognosis: Fair - Goal #1-5 Goal #1: Therapist will keep in phone contact with patient and plant anatomist to monitor patient?s swallowing status and monitor her progress in completing the exercise. It was discussed with zoo caretaker that if patient?s begins to have increased episodes of choking, or begins to have upper respiratory infections to contact the speech Department discuss making further changes to patient?s diet. Education - Patient Instruction Patient Education: Safety Precautions, Diet Level, Home Exercise Program Other Education: laboratory animal caretaker was present and handouts were given to her. Teaching Method: Discussion, Handout Response to teaching: Reinforcement needed
== END 2020-09-21 19:00 | disposition home or self-care (01) ==
LOC: SP 13:08
PROVIDERS: PCP Family Medicine Geriatric Medicine; Referring Provider Family Medicine Geriatric Medicine; Visit Provider Family Medicine Geriatric Medicine
DX: R13.10 Dysphagia, unspecified (principal)
CPT/HCPCS: 92610

== ENCOUNTER → 2020-12-07 10:15 | Outpatient (CLI) | payer MEDICARE, MEDICAID, SELFPAY ==
[2020-10-05 11:06] VITALS: BMI 37.2
[2020-12-07 12:37] LABS: Absolute Lymphocyte Count 1.81 X10^3/uL (0.83-4.51); Absolute Neutrophil Count 4.6 X10^3/uL (2.0-7.7); Basophil# 0.04 X10^3/uL; Basophil% 0.5 % (0-1); Eosinophil# 0.16 X10^3/uL; Eosinophils% 2.2 % (0-5); Hematocrit 50.2 % (37-47); Hemoglobin 15.9 g/dL (12.0-15.0); Lymphocyte # 1.81 X10^3/ul (0.83-4.51); Lymphocyte % 24.7 % (19-41); Mean Corp Hgb Conc 31.7 g/dL (32-36); Mean Corpuscular Hgb 28.5 pg (27.0-32.0); Mean Platelet Vol. 10.9 fl (6.2-12.0); Monocyte# 0.68 X10^3/uL; Monocyte% 9.3 % (0-10); NRBC Flagged by Analyzer 0 % (0-5); Neutrophil # 4.61 X10^3/uL (2.7-7.7); Platelet Count 196 K/mm3 (150-450); RBC Distribution Width CV 11.9 % (11.6-14.6); RBC Distribution Width SD 39.4 fl (35.1-43.9); Red Blood Count 5.58 M/mm3 (4.2-5.4); White Blood Count 7.3 K/mm3 (4.4-11.0)
[2020-12-07 13:06] LABS: Vitamin D,25 Hydroxy 19.2 ng/mL
[2020-12-07 13:20] LABS: ALB/GLOB Ratio 0.8 RATIO (0.9-2.4); AST(SGOT) 23 U/L (15-37); Alanine Aminotransfer ALT/SGPT 23 U/L (13-56); Albumin, Serum 3.2 g/dL (3.2-5.0); Alkaline Phosphatase 135 U/L (45-117); Anion Gap 1 (5-15); BUN 13 mg/dL (7-18); BUN/Creat Ratio 15.2 RATIO (10-20); Calcium,Total 8.9 mg/dL (8.5-10.1); Chloride 104 mmol/L (98-107); Creatinine, Serum 0.86 mg/dL (0.55-1.02); EST Glomerular Filtration Rate 71 mL/min (>60); Est Glom Filt Rate - Afr Amer 85 mL/min (>60); Globulin 3.9 g/dL (2.2-4.2); Glucose 75 mg/dL (74-106); Potassium 4.2 mmol/L (3.5-5.1); Protein, Total 7.1 g/dL (6.4-8.2); Sodium Level 137 mmol/L (136-145); Thyroid Stim Hormone (TSH) 1.36 uIU/mL (0.358-3.74)
== END ==
PROVIDERS: PCP Family Medicine Geriatric Medicine; Visit Provider Family Medicine Geriatric Medicine
DX: E55.9 Vitamin D deficiency, unspecified (principal); R53.83 Other fatigue
CPT/HCPCS: 36415; 80053; 82306; 84443; 85025

== ENCOUNTER → 2020-12-09 | Outpatient (CLI) | payer MEDICARE, MEDICAID, SELFPAY ==
[2020-10-05 11:06] VITALS: BMI 37.2
== END | disposition home or self-care (01) ==
LOC: POLAB3 10:31 → LABSPEC 10:32
PROVIDERS: PCP Family Medicine Geriatric Medicine; Visit Provider Family Medicine Geriatric Medicine
DX: N39.0 Urinary tract infection, site not specified (principal)
CPT/HCPCS: 87077; 87086; 87088; 87186

== ENCOUNTER → 2020-12-21 14:22 | Outpatient (CLI) | payer MEDICARE, MEDICAID, SELFPAY ==
[2020-12-21 13:17] VITALS: BMI 37.2
[2020-12-21 18:06] LABS: Vitamin B12 346 pg/mL (211-911)
== END ==
PROVIDERS: PCP Family Medicine Geriatric Medicine; Referring Provider Nurse Practitioner Family; Visit Provider Nurse Practitioner Family
DX: G31.84 Mild cognitive impairment of uncertain or unknown etiology (principal)
CPT/HCPCS: 36415; 82607; 82746

== ENCOUNTER → 2021-01-11 10:59 | Outpatient (CLI) | payer MEDICARE, MEDICAID, SELFPAY ==
[2020-12-21 13:17] VITALS: BMI 37.2
--- NOTE | 2021-01-11 11:01 | MRI_ITS ---
STUDY: MRI BRAIN WITHOUT CONTRAST REASON FOR EXAM: Female, 65 years old. Parkinsonism; mild cognitive impairment -- pt refused contrast, trying to escape scanner TECHNIQUE: Standardized multiplanar fat and water weighted pulse sequences were obtained. COMPARISON: None. FINDINGS: There is mild cerebral atrophy with widening of the extra-axial spaces and ventricular dilatation. There are multiple confluent white matter hyperintensities, distributed throughout the deep white matter tracts of the cerebral hemispheres, consistent with severe chronic white matter ischemic changes. There is no evidence for recent intracranial ischemia or other cause of cytotoxic edema on diffusion weighted imaging (DWI). Normal T2* images of the brain without demonstrated susceptibility artifact. There is no demonstrated hemosiderin stain. Mid brain iron stores are depleted. Normal bilateral basal ganglia. Normal thalami. There is no extra-axial fluid accumulation. Normal flow voids within the major intracranial circulation suggesting patency by spin echo criteria. Normal sella turcica, pituitary gland, infundibular stalk, optic chiasm and hypothalamus. Normal tectal plate and pineal gland. There are chronic white matter ischemic changes of the jake. The midbrain and medulla are otherwise normal. Normal cerebellum. Normal basal cisterns. There is moderate chronic otomastoiditis of the bilateral temporal bones. Normal bilateral internal auditory canals. No demonstrated orbital abnormality, within the constraints of a routine brain study. Normal visualized paranasal sinuses. Normal calvarium and skull base. Normal visualized soft tissue structures. Normal visualized upper cervical spine. MRI/Brain without Contrast IMPRESSION: Involutional changes of the brain, as described above. Electronically Signed: Golden Ngo MD at 13:19 EDT Tel , Service support ,
== END ==
PROVIDERS: PCP Family Medicine Geriatric Medicine; Referring Provider Nurse Practitioner Family; Visit Provider Nurse Practitioner Family
DX: G20 Parkinson's disease (principal); G31.84 Mild cognitive impairment of uncertain or unknown etiology
CPT/HCPCS: 70551

== ENCOUNTER → 2021-04-26 12:16 | Outpatient (CLI) | payer MEDICARE, MEDICAID, SELFPAY ==
[2021-04-26 13:46] LABS: Absolute Lymphocyte Count 2.39 X10^3/uL (0.83-4.51); Absolute Neutrophil Count 6.4 X10^3/uL (2.0-7.7); Basophil# 0.05 X10^3/uL; Basophil% 0.5 % (0-1); Eosinophil# 0.17 X10^3/uL; Eosinophils% 1.7 % (0-5); Hematocrit 47.7 % (37-47); Hemoglobin 15.2 g/dL (12.0-15.0); Lymphocyte # 2.39 X10^3/ul (0.83-4.51); Lymphocyte % 23.9 % (19-41); Mean Corp Hgb Conc 31.9 g/dL (32-36); Mean Corpuscular Hgb 29.5 pg (27.0-32.0); Mean Corpuscular Volume 92.6 fL (81-99); Mean Platelet Vol. 11.2 fl (6.2-12.0); Monocyte# 0.98 X10^3/uL; Monocyte% 9.8 % (0-10); NRBC Flagged by Analyzer 0 % (0-5); Neutrophil # 6.36 X10^3/uL (2.7-7.7); Neutrophil % 63.8 % (47-70); Platelet Count 194 K/mm3 (150-450); RBC Distribution Width CV 11.6 % (11.6-14.6); RBC Distribution Width SD 39.1 fl (35.1-43.9); Red Blood Count 5.15 M/mm3 (4.2-5.4)
[2021-04-26 14:20] LABS: Vitamin D,25 Hydroxy 70.4 ng/mL
[2021-04-26 14:23] LABS: ALB/GLOB Ratio 0.8 RATIO (0.9-2.4); AST(SGOT) 20 U/L (15-37); Alanine Aminotransfer ALT/SGPT 26 U/L (13-56); Albumin, Serum 3.3 g/dL (3.2-5.0); Alkaline Phosphatase 129 U/L (45-117); Anion Gap 5 (5-15); BUN 16 mg/dL (7-18); BUN/Creat Ratio 20.2 RATIO (10-20); Chloride 106 mmol/L (98-107); Creatinine, Serum 0.79 mg/dL (0.55-1.02); EST Glomerular Filtration Rate 77 mL/min (>60); Est Glom Filt Rate - Afr Amer 93 mL/min (>60); Globulin 3.9 g/dL (2.2-4.2); Glucose 101 mg/dL (74-106); Potassium 3.9 mmol/L (3.5-5.1); Protein, Total 7.2 g/dL (6.4-8.2); Sodium Level 143 mmol/L (136-145); Thyroid Stim Hormone (TSH) 1.56 uIU/mL (0.358-3.74)
== END ==
PROVIDERS: PCP Family Medicine Geriatric Medicine; Referring Provider Family Medicine Geriatric Medicine; Visit Provider Family Medicine Geriatric Medicine
DX: E55.9 Vitamin D deficiency, unspecified (principal); R53.83 Other fatigue; N39.0 Urinary tract infection, site not specified
CPT/HCPCS: 36415; 80053; 82306; 84443; 85025; 87077; 87086; 87088; 87186

== ENCOUNTER 2021-08-11 10:59 | Outpatient (CLI) | payer MEDICARE, MEDICAID, SELFPAY ==
[2021-08-11 12:46] LABS: Vitamin D,25 Hydroxy 98.6 ng/mL
== END 2021-08-11 23:59 | disposition home or self-care (01) ==
PROVIDERS: PCP Family Medicine Geriatric Medicine; Referring Provider Nurse Practitioner Family; Visit Provider Nurse Practitioner Family
DX: E55.9 Vitamin D deficiency, unspecified (principal)
CPT/HCPCS: 36415; 82306

== ENCOUNTER → 2022-08-01 | Outpatient (CLI) | payer MEDICARE, MEDICAID, SELFPAY ==
[2022-08-01 13:14] LABS: Absolute Lymphocyte Count 2.38 X10^3/uL (0.83-4.51); Absolute Neutrophil Count 7.3 X10^3/uL (2.0-7.7); Basophil# 0.08 X10^3/uL; Basophil% 0.7 % (0-1); Eosinophil# 0.24 X10^3/uL; Eosinophils% 2.2 % (0-5); Hematocrit 50.5 % (37-47); Hemoglobin 16.3 g/dL (12.0-15.0); Lymphocyte # 2.38 X10^3/ul (0.83-4.51); Lymphocyte % 21.5 % (19-41); Mean Corp Hgb Conc 32.3 g/dL (32-36); Mean Corpuscular Hgb 30.2 pg (27.0-32.0); Mean Corpuscular Volume 93.7 fL (81-99); Mean Platelet Vol. 11.2 fl (6.2-12.0); Monocyte# 1.01 X10^3/uL; Monocyte% 9.1 % (0-10); NRBC Flagged by Analyzer 0 % (0-5); Neutrophil # 7.31 X10^3/uL (2.7-7.7); Neutrophil % 66.1 % (47-70); Platelet Count 231 K/mm3 (150-450); RBC Distribution Width CV 11.4 % (11.6-14.6); Red Blood Count 5.39 M/mm3 (4.2-5.4); White Blood Count 11.1 K/mm3 (4.4-11.0)
[2022-08-01 13:32] LABS: Vitamin D,25 Hydroxy 63.4 ng/mL
[2022-08-01 13:39] LABS: ALB/GLOB Ratio 0.8 RATIO (0.9-2.4); AST(SGOT) 21 U/L (15-37); Alanine Aminotransfer ALT/SGPT 22 U/L (13-56); Albumin, Serum 3.3 g/dL (3.2-5.0); Alkaline Phosphatase 128 U/L (45-117); Anion Gap 6 (5-15); BUN 13 mg/dL (7-18); BUN/Creat Ratio 16.5 RATIO (10-20); Calcium,Total 9.6 mg/dL (8.5-10.1); Chloride 101 mmol/L (98-107); Creatinine, Serum 0.79 mg/dL (0.55-1.02); EST Glomerular Filtration Rate 77 mL/min (>60); Est Glom Filt Rate - Afr Amer 93 mL/min (>60); Globulin 4.1 g/dL (2.2-4.2); Glucose 80 mg/dL (74-106); Potassium 4.2 mmol/L (3.5-5.1); Protein, Total 7.4 g/dL (6.4-8.2); Sodium Level 139 mmol/L (136-145); Thyroid Stim Hormone (TSH) 1.94 uIU/mL (0.358-3.74)
== END | disposition home or self-care (01) ==
LOC: POLAB3 11:02
PROVIDERS: PCP Family Medicine Geriatric Medicine; Visit Provider Family Medicine Geriatric Medicine
DX: E55.9 Vitamin D deficiency, unspecified (principal); R53.83 Other fatigue
CPT/HCPCS: 36415; 80053; 82306; 84443; 85025

== ENCOUNTER → 2022-08-09 | Outpatient (CLI) | payer MEDICARE, SELFPAY ==
--- NOTE | 2022-08-09 09:08 | BI_ITS ---
MAMMOGRAPHY - BILATERAL SCREENING 3-D TOMOSYNTHESIS REASON FOR EXAM: Female, 66 years old. Routine screening PERTINENT HISTORY: No significant family history. TECHNIQUE: 2-D mammograms and 3-D Tomosynthesis of the breast (s) were performed. CAD was performed. COMPARISON: 08/13/2018 FINDINGS: The breast composition is heterogeneously dense that can obscure small breast masses. Scattered benign calcifications are seen. No dense spiculated masses or suspicious microcalcifications are identified. No architectural distortion is identified. There is no skin thickening or retraction. There has been no significant change since the prior study. BI/SCRN MAMM (CAD)W/ALIS BILAT IMPRESSION: No mammographic signs of malignancy. Routine yearly mammograms recommended. ASSESSMENT CATEGORY: BIRADS Category 2: Benign. A letter regarding these results will be sent to the patient by the facility within 30 days. FOLLOW UP RECOMMENDATION: Yearly follow up mammogram recommended. (A) Approximately 10% of breast cancers are not detected by mammography. A normal mammogram should not delay biopsy of a clinically suspicious abnormality. Electronically Signed: Gurmeet Astorga MD at 10:02 EDT ,
== END | disposition home or self-care (01) ==
LOC: OPBI 09:06
PROVIDERS: PCP Family Medicine Geriatric Medicine; Referring Provider Family Medicine Geriatric Medicine; Visit Provider Family Medicine Geriatric Medicine
DX: Z12.31 Encounter for screening mammogram for malignant neoplasm of breast (principal)
CPT/HCPCS: 77063; 77067

== ENCOUNTER 2022-12-15 16:28 | Emergency (ER) | payer BC, MEDICAID, SELFPAY ==
[2022-12-15 16:30] VITALS: BP 140/101; PULSE 110; RESP 18; TEMP 36.7; O2SAT 97; BMI 28.5
--- NOTE | 2022-12-15 18:27 | CT_ITS ---
INDICATION: injury EXAMINATION: CT BRAIN - CT Head or Brain W/O Contrast Injection TECHNIQUE: Multiple axial images were obtained of the head without intravenous contrast. A radiation dose optimization technique was used for this scan. IV Contrast dosage and agent: None. RADIATION DOSAGE (If Supplied By Facility): CTDIvol = ( 44.99 ) mGy, DLP = ( 812.98 ) mGycm COMPARISON: No relevant prior examinations for comparison FINDINGS: HEMISPHERES: 1. The cerebral parenchyma, ventricular system, subarachnoid spaces have normal configuration and density. There is a normal gyral pattern. There is normal bustamante/white differentiation. No midline shift.. 2. There are diffuse involutional changes and extensive chronic deep white matter disease. 3. No intraparenchymal mass, hemorrhage, or acute territorial infarct. CEREBELLUM - BRAINSTEM: The cerebellum, brainstem, basilar and suprasellar cisterns have normal appearance. No Chiari malformation. PITUITARY: Infundibulum and pituitary have normal configuration. Midline structures appear normal. CSF SPACES: Appropriate for age. No hydrocephalus. Basal cisterns are patent. VESSELS: 1. No significant vascular calcifications in the cavernous carotid vessels. 2. No hyperdense vascular signs noted.. ORBITS AND PARANASAL SINUSES: 1. Mild periorbital soft tissue swelling/bruising on the RIGHT. No post septal involvement. No orbital fractures. Globes and retrobulbar soft tissue planes have normal appearance.. 2. Paranasal sinuses are clear. Moderate chronic RIGHT mastoid air cell disease is present. BONY ELEMENTS: Bony elements of the cranial vault, facial skeleton and skull base have normal appearance. SCALP AND SOFT TISSUES: Normal appearance of the soft tissues of the scalp and the visualized face OTHER: None ASPECTS Score for Acute Strokes: 10 CT/Brain/Head without Contrast IMPRESSION: 1. Diffuse involutional change and extensive chronic deep white matter disease. 2. No intracranial evidence of acute traumatic injury. 3. Significant periorbital soft tissue swelling/bruising on the RIGHT, no post septal extension. No radiopaque foreign bodies. 4. No orbital fractures noted. 5. No intracranial mass, hemorrhage or acute territorial infarct. 6. No craniofacial fracture noted. 7. No radiographically significant sinus disease.. Electronically Signed: Golden Covarrubias MD at 19:14 EDT ,
[2022-12-15 18:28] VITALS: PULSE 97
[2022-12-15] MEDS: Lidocaine 1% (20 ml mdv) 20 ML Vial INFILT (18:35)
[2022-12-15] MEDS: Lidocaine/Epi/Tetracaine 50 ML 1 APPLIC TOPICAL (18:35)
[2022-12-15] MEDS: Diphth,Pertuss(Acell),Tet Vac 0.5 ML Vial IM (18:36)
--- NOTE | 2022-12-15 18:39 | EX.ED.GENINJ ---
HPI History of Present Illness Chief Complaint: Laceration Informant: patient and other (halfway staff) Onset/Context/Timing Onset: Today Narrative Narrative: Patient presents with a laceration to the right forehead. She apparently was trying to put on her house slippers when she got her feet tangled up and fell striking her head. There was reportedly no loss of consciousness. Patient nor caregiver at bedside is able to tell me what time this injury occurred. They are unsure of her last tetanus update. She denies any other injury. [facility] Medical History Cerebrovascular disease Chronic bronchitis Developmental disorder History of UTI MCI (mild cognitive impairment) Home Medications desipramine 100 mg tablet 100 mg PO QHS 02/13/17 [History Last Taken 02/12/17] rosuvastatin 10 mg tablet 10 mg PO QHS CHOLESTEROL LOWERING 02/13/17 [History Last Taken 02/12/17] cyanocobalamin (vitamin B-12) 1,000 mcg capsule 1,000 mcg PO DAILY #30 caps 05/12/22 [Rx Last Taken Unknown] multivitamin with folic acid 400 mcg tablet ([facility] Multivitamin) See Rx Instructions .Route .COMPLEX #30 tabs 05/12/22 [Rx Last Taken Unknown] aspirin 81 mg tablet,delayed release See Rx Instructions .Route .COMPLEX #30 tabs 10/30/22 [Rx Last Taken Unknown] cholecalciferol (vitamin D3) 1,250 mcg (50,000 unit) capsule 1,250 mcg PO QMONTH #1 cap 10/30/22 [Rx Last Taken Unknown] donepezil 10 mg tablet See Rx Instructions .Route .COMPLEX #30 tabs 10/30/22 [Rx Last Taken Unknown] propranolol 20 mg tablet 20 mg PO BID #60 tabs 10/30/22 [Rx Last Taken Unknown] sertraline 100 mg tablet 150 mg PO DAILY 10/30/22 [History Last Taken Unknown] Allergy/AdvReac Type Severity Reaction Status Date / Time No Known Allergies Allergy Verified 12/15/22 16:28 Social History Smoking Status: Current every day smoker tobacco type: cigarettes Tobacco: How many years used: 50 Electronic Cigarette Use: not used second hand exposure: Yes alcohol intake: never substance use type: does not use seatbelt use: always ROS ROS ED Constitutional Constitutional ED: Denies chills or fever(s) Eyes Eyes: Denies change in vision ENT ENT ED: Denies rhinorrhea or sore throat Cardiovascular Cardiovascular: Denies chest pain Respiratory/Chest Respiratory/Chest: Denies cough or dyspnea Gastrointestinal Gastrointestinal: Denies abdominal pain, nausea or vomiting Genitourinary Genitourinary ED: Denies dysuria Musculoskeletal Musculoskeletal: Denies back pain, extremity pain or neck pain Integumentary Reports other Details: Right forehead laceration ; Denies Abrasions or rash Neurologic Neurologic: Denies headache(s) or weakness Psychiatric Psychiatric: Denies anxiety or depression Allergic/Immunologic Allergic/Immunologic ED: Denies lip swelling or urticaria EXAM Physical Exam Const Vital Signs: 12/15/22 16:30 12/15/22 18:28 Temperature 98.1 F Temperature Source Temporal Pulse Rate 110 H 97 Respiratory Rate 18 Blood Pressure 140/101 H Blood Pressure Mean 114 Pulse Ox 97 Oxygen Delivery Method Room Air Positive well nourished and well developed General Appearance ED: well developed HEENT HEENT Narrative: 4 cm laceration just superior to the right eyebrow. Eyes PERRL and EOMs intact bilaterally Neck supple Neck Narrative: No C-spine tenderness. Chest Wall inspection of chest normal and palpation of chest normal Resp normal respiratory effort and clear to auscultation bilaterally Cardio regular rate and regular rhythm GI non-tender Palpation: soft Extremity normal to inspection Neuro oriented x3 Sensorium / Orientation: alert Psych mental status grossly normal Skin no rashes or lesions noted MDM MDM MDM Narrative Medical decision making narrative: Tetanus update provided. Let applied to wound. Patient sent for CT scan of the head to evaluate for fracture/bleed. Radiography Diagnostic Testing: Clinical Impression(s) from Imaging Studies Brain CT 12/15/22 18:27 IMPRESSION: 1. Diffuse involutional change and extensive chronic deep white matter disease. 2. No intracranial evidence of acute traumatic injury. 3. Significant periorbital soft tissue swelling/bruising on the RIGHT, no post septal extension. No radiopaque foreign bodies. 4. No orbital fractures noted. 5. No intracranial mass, hemorrhage or acute territorial infarct. 6. No craniofacial fracture noted. 7. No radiographically significant sinus disease.. Electronically Signed: Golden Covarrubias MD at 19:14 EDT , Treatment and Re-Evaluation Narrative: CT head shows chronic changes with no acute findings. On repeat evaluation let is removed. Wound is cleansed. 4 cc of 1% lidocaine are infused locally. Wound is cleansed and irrigated. A total of 7 simple interval sutures of 5-0 nylon are placed with good approximation. Wound is dressed. Patient is to have sutures removed in 5 to 7 days. Tetanus update has been provided. Discharge Plan Triage Chief Complaint: Laceration ED Provider: Tamar Hobbs Dx/Rx/DC Orders Clinical Impression: Forehead laceration, Fall Instructions: ED Head Injury (Adult), ED Laceration: All Closures Prescriptions: No Action multivitamin with folic acid [[facility] Multivitamin] 400 mcg tablet See Rx Instructions .ROUTE .COMPLEX Qty: 30 6RF Dose Instruction: TAKE 1 TABLET BY MOUTH DAILY Rx Instructions: TAKE 1 TABLET BY MOUTH DAILY cyanocobalamin (vitamin B-12) 1,000 mcg capsule 1,000 mcg PO DAILY Qty: 30 6RF propranolol 20 mg tablet 20 mg PO BID Qty: 60 6RF donepezil 10 mg tablet See Rx Instructions .ROUTE .COMPLEX Qty: 30 6RF Dose Instruction: TAKE 1 TABLET BY MOUTH AT BEDTIME Rx Instructions: TAKE 1 TABLET BY MOUTH AT BEDTIME aspirin 81 mg tablet,delayed release (DR/EC) See Rx Instructions .ROUTE .COMPLEX Qty: 30 6RF Dose Instruction: TAKE 1 TABLET BY MOUTH DAILY Rx Instructions: TAKE 1 TABLET BY MOUTH DAILY cholecalciferol (vitamin D3) 1,250 mcg (50,000 unit) capsule 1,250 mcg PO QMONTH Qty: 1 6RF desipramine 100 MG tablet 100 mg PO QHS rosuvastatin 10 MG tablet 10 mg PO QHS sertraline 100 mg tablet 150 mg PO DAILY Rx Instructions: take one & 1/2 tab at bedtime Primary Care Provider: Fracisco Fowler Chi Referrals: Fracisco Fowler Chi, MD [Primary Care Provider] - 7 Days for suture removal Disposition Disposition: Home, Self Care
[2022-12-15 19:49] VITALS: PULSE 94; RESP 17; O2SAT 98
== END 2022-12-15 20:05 | disposition home or self-care (01) ==
PROVIDERS: Emergency Provider Emergency Medicine; PCP Family Medicine Geriatric Medicine; Visit Provider Emergency Medicine
DX: S01.81XA Laceration without foreign body of other part of head, initial encounter (principal); F17.210 Nicotine dependence, cigarettes, uncomplicated; Z79.82 Long term (current) use of aspirin; Z79.899 Other long term (current) drug therapy; W19.XXXA Unspecified fall, initial encounter
CPT/HCPCS: 12013; 70450; 90715; 99284

== ENCOUNTER → 2023-01-24 | Outpatient (CLI) | payer MEDICARE, MEDICAID, SELFPAY ==
--- NOTE | 2023-01-24 08:54 | BD_ITS ---
STUDY: DUAL ENERGY X-RAY ABSORPTIOMETRY / DXA REASON FOR EXAM: Female, 67 years old. [id number] TECHNIQUE: Bone Mineral Density (BMD) measurements of lumbar spine and bilateral hips were obtained. COMPARISON: None. FINDINGS: Lumbar Spine (L1-L4): g/cm2 (0.799) / T-score (-2.3) / Z-score (-0.3) Findings are suggestive of osteopenia with a high fracture risk. Left Femur Total: g/cm2 (0.824) / T-score (-1.0) / Z-score (0.4) Left Femoral Neck: g/cm2 (0.637) / T-score (-1.9) / Z-score (-0.2) Right Femur Total: g/cm2 (0.654) / T-score (-2.4) / Z-score (-1.0) Right Femoral Neck: g/cm2 (0.558) / T-score (-2.6) / Z-score (-0.9) BD/Dexa Bone Density Study IMPRESSION: The patient is considered osteoporotic as outlined below according to World Eric Organization (WHO) criteria with a high fracture risk. Reference Information: The T-score is the number of standard deviations above or below the standard which is normal for young adults at their peak bone mineral density. The World Health Organization (WHO) interprets the T-scores as follows: Above -1 Normal bone density Between -1 and -2.5 Osteopenia Equal to / or below -2.5 Osteoporosis As a practical clinical guideline, osteopenia may be graded as follows: Mild -1 through -1.5 Moderate -1.6 through -2.0 Severe -2.1 through -2.4 The Z-score is the number of standard deviations above or below age-matched controls. A Z-score of less than -1.5 would be considered abnormal. References: 1. NIH Osteoporosis and Related Bone Diseases www osteo.org 2. International Society for Clinical Densitometry www iscd.org 3. National Osteoporosis Foundation www nof.org Electronically Signed: Hemal Hart MD at 13:32 EDT ,
== END | disposition home or self-care (01) ==
PROVIDERS: PCP Family Medicine Geriatric Medicine; Referring Provider Family Medicine Geriatric Medicine; Visit Provider Family Medicine Geriatric Medicine
DX: Z78.0 Asymptomatic menopausal state (principal); E55.9 Vitamin D deficiency, unspecified
CPT/HCPCS: 77080

== ENCOUNTER → 2023-01-25 | Outpatient (CLI) | payer MEDICARE, MEDICAID, SELFPAY ==
[2023-01-25 10:41] LABS: Absolute Lymphocyte Count 2.08 X10^3/uL (0.83-4.51); Absolute Neutrophil Count 5.6 X10^3/uL (2.0-7.7); Basophil# 0.06 X10^3/uL; Basophil% 0.7 % (0-1); Eosinophil# 0.21 X10^3/uL; Eosinophils% 2.4 % (0-5); Hematocrit 49.6 % (37-47); Hemoglobin 15.4 g/dL (12.0-15.0); Lymphocyte # 2.08 X10^3/ul (0.83-4.51); Lymphocyte % 23.6 % (19-41); Mean Corpuscular Hgb 29.7 pg (27.0-32.0); Mean Corpuscular Volume 95.6 fL (81-99); Mean Platelet Vol. 11.2 fl (6.2-12.0); Monocyte# 0.81 X10^3/uL; Monocyte% 9.2 % (0-10); NRBC Flagged by Analyzer 0 % (0-5); Neutrophil # 5.64 X10^3/uL (2.7-7.7); Neutrophil % 63.9 % (47-70); Platelet Count 221 K/mm3 (150-450); RBC Distribution Width CV 11.4 % (11.6-14.6); RBC Distribution Width SD 40.3 fl (35.1-43.9); Red Blood Count 5.19 M/mm3 (4.2-5.4); White Blood Count 8.8 K/mm3 (4.4-11.0)
[2023-01-25 11:22] LABS: Vitamin D,25 Hydroxy 51.4 ng/mL
[2023-01-25 11:23] LABS: ALB/GLOB Ratio 0.8 RATIO (0.9-2.4); AST(SGOT) 23 U/L (15-37); Alanine Aminotransfer ALT/SGPT 28 U/L (13-56); Albumin, Serum 3.3 g/dL (3.2-5.0); Alkaline Phosphatase 137 U/L (45-117); Anion Gap 5 (5-15); BUN 16 mg/dL (7-18); BUN/Creat Ratio 19.8 RATIO (10-20); Chloride 104 mmol/L (98-107); Cholesterol 136 mg/dL (200); Creatinine, Serum 0.81 mg/dL (0.55-1.02); EST Glomerular Filtration Rate 75 mL/min (>60); Est Glom Filt Rate - Afr Amer 91 mL/min (>60); Glucose 99 mg/dL (74-106); High Density Lipoprotein 66 mg/dL; Protein, Total 7.3 g/dL (6.4-8.2); Sodium Level 138 mmol/L (136-145); Thyroid Stim Hormone (TSH) 1.28 uIU/mL (0.358-3.74); Triglycerides 121 mg/dL; Very Low Density Lipoprotein 24 mg/dL (5-40)
== END | disposition home or self-care (01) ==
LOC: POLAB3 09:05
PROVIDERS: PCP Family Medicine Geriatric Medicine; Visit Provider Family Medicine Geriatric Medicine
DX: I10 Essential (primary) hypertension (principal); E55.9 Vitamin D deficiency, unspecified
CPT/HCPCS: 36415; 80053; 80061; 82306; 84443; 85025

== ENCOUNTER 2023-05-14 13:28 | Outpatient (RCR) | payer MEDICARE, MEDICAID, SELFPAY ==
--- NOTE | 2023-05-14 14:46 | HP.PTEVAL_ITS ---
Patient's Visit Information Visit Information Visit Information: JERICA DICKEY is a 67 year old F referred to Physical Therapy by Dr. Ivan Jackson MD with a diagnosis of abnormality of gait. Date of Evaluation: 05/14/23 Physical Therapist: DEVON Danielle Visit Plan Frequency: 2x /Week Duration: 2 Months Plan: 2X/ week for 8 weeks for stretching of R ankle in DF, R ankle strength (functional) gait training (increasing R stride length), balance activities with HEP Subjective Subjective: She is here with a caregiver, Tamar. She had a neurology appointment and she has problems with her balance. They are thinking possible CP and doing an MRI. She fell recently and cut her eye open. She is leaning to the right side most of the time. She lives in [facility] with no stairs. She is an indep with bathing and dressing and cooking. She works and sorts clothes. She has lost her balance once or twice when she has to change dire ctions. She does not feel like her legs are weak. She has always had problems with her R hand and now she is having more trouble with her legs. She has no pain. Objective Objective: Gait: Walks with decreased stride on the R LE and does nut draft roller picker her R foot and catches her R foot at times (but catches herself on both occassion today) She struggles with heel and toe raises on the R Tight gastroc on the R Pt struggles to scoot in seated and trouble rolling form R to L. LE MMT: R hip flex 7.3 and L 12.3 R knee ext 15.6 and L 20.4 R knee flex 11.4 and L 8.6 R hip abd 7.8 and L 8.8 FGA: 9 Stairs: Pt is able to go up steps recip with 1 hand rail and goes down steps with 2 feet to a stair with 1 hand rail Sit to stand: uses arms to get out of a chair Balance/Special Test Scores Functional Gait Assessment Score: 9 % Disability: 70.0000 Lower Extremity Functional Score: 57 Goals Goal 1:: I HEP Goal Time Frame: 8-12 Weeks Goal 2:: Increase R LE strength (at time of the eval: LE MMT: R hip flex 7.3 and L 12.3 R knee ext 15.6 and L 20.4 R knee flex 11.4 and L 8.6 R hip abd 7.8 and L 8.8 Goal Time Frame: 8-12 Weeks Goal 3:: Increase balance (score on FGA was 9 at eval) Goal Time Frame: 8-12 Weeks Goal 4:: Be able to walk entire dept with increase stride length on the R and not tripping over her R foot. Goal Time Frame: 8-12 Weeks Rehabilitation Potential Rehabilitation Potential: Good Anticipated Interventions Patient/Client Instruction: Educate patient on: Condition and Plan of Care For the Purpose of:: To decrease pain, To increase ROM, To improve nutrient delivery to tissue, To improve muscle performance and motor function, To improve ability to perform ADL's, To increase tolerance to activity/condition/position, To improve performance and independence with ADL's, To decrease level of supervision to perform tasks, To improve ability of physical actions for home/co mmunity/work/leisure, To improve gait and locomotor functions, To improve health of tissue, To decrease soft tissue restriction, To increase flexibility/ROM, To improve endurance, To improve balance and To improve safety with gait Therapeutic Exercise to Include: Strength training, Endurance training, Balance training, Postural training, Flexibilty training, Gait and locomotor training, Neuromotor development, Passive ROM and Active ROM For the Purpose of:: To improve nutrient delivery to tissue, To improve muscle performance and motor function, To improve ability to perform ADL's, To increase tolerance to activity/condition/position, To improve performance and independence with ADL's, To decrease level of supervision to perform tasks, To improve ability of physical actions for home/community/work/leisure, To improve gait and locomotor functions, To improve health of tissue, To decrease soft tissue restriction, To increase flexibility/ROM, To improve balance and To improve safety with gait Functional Training to Include: Gait training For the Purpose of:: To improve gait and locomotor functions and To improve safety with gait Manual Therapy Techniques to Include: Passive ROM For the Purpose of:: To increase ROM, To improve nutrient delivery to tissue, To improve muscle performance and motor function and To increase flexibility/ROM Text: Thank you for the opportunity to evaluate your patient. For Medicare and Medicare HMO plans, please review the plan of care and approve it. It will need to be FAXED BACK to us at [phone] for Medicare purposes. For Medicare only, by signing this I certify the plan of care. Please let me know if there are questions or concerns regarding this plan of care. Physician Signature: ___Date:
== END 2023-05-14 19:00 | disposition home or self-care (01) ==
LOC: PT 13:28
PROVIDERS: PCP Family Medicine Geriatric Medicine; Referring Provider Psychiatry & Neurology Neurology; Visit Provider Psychiatry & Neurology Neurology
DX: R26.9 Unspecified abnormalities of gait and mobility (principal)
CPT/HCPCS: 97161

== ENCOUNTER → 2023-05-31 | Outpatient (CLI) | payer MEDICARE, MEDICAID, SELFPAY ==
--- NOTE | 2023-05-31 12:37 | MRI_ITS ---
ACR Level 3 findings have been noted. An addendum which confirms receipt of the report will follow. STUDY: MRI BRAIN WITHOUT CONTRAST REASON FOR EXAM: Female, 67 years old. Cerebrovascular disease; gait d/o; mild cognitive TECHNIQUE: Standardized multiplanar fat and water weighted pulse sequences were obtained. COMPARISON: January 11, 2021 FINDINGS: Normal size of the ventricles and extra-axial spaces for the patient''s age. Nonspecific advanced periventricular white matter disease likely representing chronic small vessel ischemic changes. There is subtle focal restricted diffusion in the left posterior frontal lobe. . There are subtle areas of increased signal intensity within the caudate nuclei and thalami bilaterally as well as the jake also possibly due to chronic ischemic changes. There is no extra-axial fluid accumulation. Normal flow voids within the major intracranial circulation suggesting patency by spin echo criteria. Normal sella turcica, pituitary gland, infundibular stalk, optic chiasm and hypothalamus. Normal tectal plate and pineal gland. Normal midbrain, and medulla. Probable mild chronic ischemic changes in the right cerebellar hemisphere. Normal basal cisterns. Normal bilateral temporal bones. Normal bilateral internal auditory canals. Increased signal intensity within the right mastoid air cells which may be on the basis of old inflammatory disease No demonstrated orbital abnormality, within the constraints of a routine brain study. Normal visualized paranasal sinuses. Normal calvarium and skull base. Normal visualized soft tissue structures. Normal visualized upper cervical spine. The focal infarct in the posterior left frontal lobe is new finding since prior exam. Other findings are not changed appreciably MRI/Brain without Contrast IMPRESSION: New acute deep white matter infarct in the left posterior frontal lobe. Other findings as above not significantly changed since previous study Electronically Signed: Shorty Hickman MD at 17:45 EST ,
== END | disposition home or self-care (01) ==
LOC: MRI 12:30
PROVIDERS: PCP Family Medicine Geriatric Medicine; Referring Provider Psychiatry & Neurology Neurology; Visit Provider Psychiatry & Neurology Neurology
DX: R26.9 Unspecified abnormalities of gait and mobility (principal); I67.9 Cerebrovascular disease, unspecified; G31.84 Mild cognitive impairment of uncertain or unknown etiology
CPT/HCPCS: 70551

== ENCOUNTER → 2023-06-05 | Outpatient (CLI) | payer MEDICARE, MEDICAID, SELFPAY ==
[2023-06-05 10:18] LABS: Hemoglobin 15.6 g/dL (12.0-15.0); Mean Corp Hgb Conc 31.8 g/dL (32-36); Mean Corpuscular Hgb 29.5 pg (27.0-32.0); Mean Corpuscular Volume 92.8 fL (81-99); Mean Platelet Vol. 10.8 fl (6.2-12.0); Platelet Count 236 K/mm3 (150-450); RBC Distribution Width CV 11.3 % (11.6-14.6); RBC Distribution Width SD 38.4 fl (35.1-43.9); Red Blood Count 5.28 M/mm3 (4.2-5.4); White Blood Count 8.5 K/mm3 (4.4-11.0)
[2023-06-05 10:48] LABS: ALB/GLOB Ratio 0.8 RATIO (0.9-2.4); AST(SGOT) 24 U/L (15-37); Alanine Aminotransfer ALT/SGPT 28 U/L (13-56); Albumin, Serum 3.5 g/dL (3.2-5.0); Alkaline Phosphatase 114 U/L (45-117); Anion Gap 4 (5-15); BUN 17 mg/dL (7-18); BUN/Creat Ratio 19.2 RATIO (10-20); Calcium,Total 9.6 mg/dL (8.5-10.1); Chloride 106 mmol/L (98-107); Cholesterol 154 mg/dL (200); Creatinine, Serum 0.88 mg/dL (0.55-1.02); EST Glomerular Filtration Rate 68 mL/min (>60); Est Glom Filt Rate - Afr Amer 82 mL/min (>60); Globulin 4.2 g/dL (2.2-4.2); Glucose 98 mg/dL (74-106); High Density Lipoprotein 72 mg/dL; Protein, Total 7.7 g/dL (6.4-8.2); Sodium Level 140 mmol/L (136-145); Thyroid Stim Hormone (TSH) 1.35 uIU/mL (0.358-3.74); Triglycerides 90 mg/dL; Very Low Density Lipoprotein 18 mg/dL (5-40)
== END | disposition home or self-care (01) ==
LOC: MTLAB 08:38
PROVIDERS: PCP Family Medicine Geriatric Medicine; Referring Provider Psychiatry & Neurology Neurology; Visit Provider Psychiatry & Neurology Neurology
DX: I10 Essential (primary) hypertension (principal); I63.9 Cerebral infarction, unspecified
CPT/HCPCS: 36415; 80053; 80061; 84443; 85027

== ENCOUNTER → 2023-06-12 | Outpatient (CLI) | payer MEDICARE, MEDICAID, SELFPAY ==
--- NOTE | 2023-06-12 12:18 | EKG12_ITS ---
Test Reason : PRE OP Blood Pressure : / mmHG Vent. Rate : 076 BPM Atrial Rate : 076 BPM P-R Int : 148 ms QRS Dur : 088 ms QT Int : 410 ms P-R-T Axes : 072 050 085 degrees QTc Int : 461 ms Normal sinus rhythm Septal infarct , age undetermined Abnormal ECG Confirmed by JACQUELINE TENORIO, GENESIS ([id number]), material expeditor KEIKO SOLIS ([id number]) on 06/13/2023 9:25:57 AM Referred By: Ivan Jackson Confirmed By:GENESIS PHILLIPS MD
--- NOTE | 2023-06-12 12:18 | CDU_ITS ---
Reason For Study: Acute left cerebral ischemic stroke Rt. Velocities/BP Lt. Velocities/BP Prox CCA 60.7/7.8 cm/sec. Prox CCA 72.9/10.2 cm/sec. Mid CCA 64.5/11.6 cm/sec. Mid CCA 63/8 cm/sec. Dist CCA 71.1/13.5 cm/sec. Dist CCA 66.3/12.4 cm/sec. Prox ICA 63/12.4 cm/sec. Prox ICA 57.5/10.2 cm/sec. Mid ICA 72.9/14.6 cm/sec. Mid ICA 66.3/12.4 cm/sec. Dist ICA 90.9/14.3 cm/sec. Dist ICA 76.2/14.6 cm/sec. Rt. ICA/CCA = 1.41. Lt. ICA/CCA = 1.15. Prox ECA 104.7/11.5 cm/sec. Prox ECA 74/5.8 cm/sec. Rt. Vert. 42.1/6.9 cm/sec. Lt. Vert. 37.2/7.3 cm/sec. Right Extracranial There is intimal thickening but no significant atherosclerotic plaque noted in the right common carotid artery. There is heterogeneous, irregular atherosclerotic plaque noted in the right internal carotid artery. There is intimal thickening but no significant atherosclerotic plaque noted in the right external carotid artery. Antegrade flow is noted in the right vertebral artery. Left Extracranial There is intimal thickening but no significant atherosclerotic plaque noted in the left common carotid artery. There is intimal thickening but no significant atherosclerotic plaque noted in the left internal carotid artery. There is heterogeneous, irregular atherosclerotic plaque noted in the left external carotid artery. Antegrade flow is noted in the left vertebral artery. Procedure This is a Carotid Duplex examination using B-mode, color flow and specral Doppler. Carotid Duplex [id number]. Exam performed in department. VL/Carotid Duplex Ultrasound Interpretation Summary Mild (<50%) stenosis right extracranial internal carotid. Normal left extracranial internal carotid. Patent and antegrade vertebrals bilaterally. Ordering Physician: Ivan Jackson Referring Physician: Fracisco Fowler Chi Performed By: Bessy Webb RVT
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
== END | disposition home or self-care (01) ==
LOC: CVS 12:16
PROVIDERS: PCP Family Medicine Geriatric Medicine; Referring Provider Psychiatry & Neurology Neurology; Visit Provider Psychiatry & Neurology Neurology
DX: I63.9 Cerebral infarction, unspecified (principal); R26.89 Other abnormalities of gait and mobility
CPT/HCPCS: 93005; 93880

== ENCOUNTER → 2023-06-18 | Outpatient (CLI) | payer MEDICARE, MEDICAID, SELFPAY ==
--- NOTE | 2023-06-18 09:30 | MRI_ITS ---
STUDY: MRI CERVICAL SPINE WITHOUT CONTRAST REASON FOR EXAM: Female, 67 years old. Abnormality of gait. Evaluate for cervical myelopathy TECHNIQUE: Standardized fat and water weighted pulse sequences were obtained in the sagittal and axial planes. COMPARISON: None FINDINGS: Normal foramen magnum and brainstem-cervical cord junction. Normal craniovertebral junction. Normal anterior atlantoaxial articulation. Normal odontoid process. Normal cervical lordosis. Normal vertebral bodies and posterior osseous elements. C2-3: Normal endplates. Normal disc height, signal and morphology. Normal central canal and intervertebral neural foramina. C3-4: Normal endplates. Normal disc height, signal and morphology. Normal central canal and intervertebral neural foramina. C4-5: Normal endplates. Mild disc space height narrowing. Minimal ventral extradural defect due to posterior marginal spurs. Normal central canal and intervertebral neural foramina. C5-6: Normal endplates. Pronounced disc space height narrowing. Normal central canal and intervertebral neural foramina. C6-7: Normal endplates. Moderate disc space height narrowing. Normal central canal and intervertebral neural foramina. C7-T1: Normal endplates. Normal disc height, signal and morphology. Normal central canal and intervertebral neural foramina. T1-T2, T2-T3, T3-T4 and T4-T5: (Sagittal only). Normal endplates. Normal disc height and morphology. Normal central canal and intervertebral neural foramina. Normal cervical cord. Normal upper thoracic spinal cord. Normal visualized soft tissue structures. MRI/Spine Cervical (Routine) IMPRESSION: 1. No MRI evidence of cervical extruded disc fragment, disc protrusion, spinal stenosis or nerve root displacement. 2. Limited study due to motion on T1 and axial views. 3. Normal cervical spinal cord. Electronically Signed: Stevan Ma MD at 13:32 EST ,
== END | disposition home or self-care (01) ==
LOC: MRI 08:58
PROVIDERS: PCP Family Medicine Geriatric Medicine; Referring Provider Psychiatry & Neurology Neurology; Visit Provider Psychiatry & Neurology Neurology
DX: R26.9 Unspecified abnormalities of gait and mobility (principal)
CPT/HCPCS: 72141

== ENCOUNTER → 2023-07-09 | Outpatient (CLI) | payer MEDICARE, MEDICAID, SELFPAY ==
[2023-07-09 17:51] LABS: Absolute Neutrophil Count 5.9 X10^3/uL (2.0-7.7); Basophil# 0.04 X10^3/uL; Basophil% 0.4 % (0-1); Eosinophil# 0.31 X10^3/uL; Eosinophils% 3.2 % (0-5); Hemoglobin 14.3 g/dL (12.0-15.0); Lymphocyte % 24.7 % (19-41); Mean Corp Hgb Conc 31.1 g/dL (32-36); Mean Corpuscular Hgb 29.2 pg (27.0-32.0); Mean Corpuscular Volume 94.1 fL (81-99); Monocyte% 10.3 % (0-10); NRBC Flagged by Analyzer 0 % (0-5); Neutrophil # 5.94 X10^3/uL (2.7-7.7); Neutrophil % 61.1 % (47-70); Platelet Count 211 K/mm3 (150-450); RBC Distribution Width CV 11.3 % (11.6-14.6); RBC Distribution Width SD 38.5 fl (35.1-43.9); Red Blood Count 4.89 M/mm3 (4.2-5.4); White Blood Count 9.7 K/mm3 (4.4-11.0)
[2023-07-09 18:18] LABS: ALB/GLOB Ratio 0.9 RATIO (0.9-2.4); AST(SGOT) 15 U/L (15-37); Alanine Aminotransfer ALT/SGPT 25 U/L (13-56); Albumin, Serum 3.3 g/dL (3.2-5.0); Alkaline Phosphatase 122 U/L (45-117); Anion Gap 4 (5-15); BUN 23 mg/dL (7-18); BUN/Creat Ratio 26.2 RATIO (10-20); Calcium,Total 9.8 mg/dL (8.5-10.1); Chloride 102 mmol/L (98-107); Creatinine, Serum 0.88 mg/dL (0.55-1.02); EST Glomerular Filtration Rate 68 mL/min (>60); Est Glom Filt Rate - Afr Amer 82 mL/min (>60); Globulin 3.6 g/dL (2.2-4.2); Glucose 99 mg/dL (74-106); Protein, Total 6.9 g/dL (6.4-8.2); Sodium Level 139 mmol/L (136-145); Thyroid Stim Hormone (TSH) 1.28 uIU/mL (0.358-3.74)
== END | disposition home or self-care (01) ==
LOC: POLAB3 16:28
PROVIDERS: PCP Family Medicine Geriatric Medicine; Visit Provider Family Medicine Geriatric Medicine
DX: Z13.89 Encounter for screening for other disorder (principal); E78.5 Hyperlipidemia, unspecified; N39.0 Urinary tract infection, site not specified; R53.83 Other fatigue
CPT/HCPCS: 36415; 80053; 84443; 85025; 87077; 87086; 87088; 87186

== ENCOUNTER → 2023-08-06 | Outpatient (CLI) | payer MEDICARE, MEDICAID, SELFPAY ==
[2023-08-06 11:26] LABS: Absolute Lymphocyte Count 2.32 X10^3/uL (0.83-4.51); Absolute Neutrophil Count 5.1 X10^3/uL (2.0-7.7); Basophil# 0.05 X10^3/uL; Basophil% 0.6 % (0-1); Eosinophil# 0.29 X10^3/uL; Eosinophils% 3.4 % (0-5); Hematocrit 46.4 % (37-47); Hemoglobin 14.9 g/dL (12.0-15.0); Lymphocyte # 2.32 X10^3/ul (0.83-4.51); Mean Corp Hgb Conc 32.1 g/dL (32-36); Mean Corpuscular Hgb 29.9 pg (27.0-32.0); Mean Platelet Vol. 10.6 fl (6.2-12.0); Monocyte# 0.84 X10^3/uL; Monocyte% 9.8 % (0-10); NRBC Flagged by Analyzer 0 % (0-5); Neutrophil # 5.06 X10^3/uL (2.7-7.7); Platelet Count 219 K/mm3 (150-450); RBC Distribution Width CV 11.1 % (11.6-14.6); RBC Distribution Width SD 37.6 fl (35.1-43.9); Red Blood Count 4.99 M/mm3 (4.2-5.4); White Blood Count 8.6 K/mm3 (4.4-11.0)
[2023-08-06 13:00] LABS: ALB/GLOB Ratio 0.9 RATIO (0.9-2.4); AST(SGOT) 19 U/L (15-37); Alanine Aminotransfer ALT/SGPT 24 U/L (13-56); Albumin, Serum 3.6 g/dL (3.2-5.0); Alkaline Phosphatase 104 U/L (45-117); Anion Gap 2 (5-15); BUN 22 mg/dL (7-18); BUN/Creat Ratio 26.1 RATIO (10-20); Calcium,Total 9.4 mg/dL (8.5-10.1); Chloride 103 mmol/L (98-107); Cholesterol 152 mg/dL (200); Creatinine, Serum 0.84 mg/dL (0.55-1.02); EST Glomerular Filtration Rate 71 mL/min (>60); Est Glom Filt Rate - Afr Amer 86 mL/min (>60); Globulin 3.8 g/dL (2.2-4.2); Glucose 89 mg/dL (74-106); High Density Lipoprotein 83 mg/dL; Potassium 3.9 mmol/L (3.5-5.1); Protein, Total 7.4 g/dL (6.4-8.2); Sodium Level 139 mmol/L (136-145); Thyroid Stim Hormone (TSH) 0.99 uIU/mL (0.358-3.74); Triglycerides 76 mg/dL; Very Low Density Lipoprotein 15 mg/dL (5-40)
== END | disposition home or self-care (01) ==
LOC: LAB 10:29
PROVIDERS: PCP Family Medicine Geriatric Medicine; Visit Provider Family Medicine Geriatric Medicine
DX: I10 Essential (primary) hypertension (principal); E55.9 Vitamin D deficiency, unspecified; E78.5 Hyperlipidemia, unspecified
CPT/HCPCS: 36415; 80053; 80061; 82306; 84443; 85025

== ENCOUNTER → 2023-12-10 | Outpatient (CLI) | payer MEDICARE, MEDICAID, SELFPAY ==
[2023-12-10 10:37] LABS: Bacteria 0 SEEN /hpf (None Seen); Mucous, Urine 0 SEEN /hpf (<or=2+); Red Blood Cells-Urine 0 SEEN /hpf (0-5); Squamous Epithelial Cells - UA 0 SEEN /hpf (5-10); White Blood Cells 0 SEEN /hpf (0-5)
--- NOTE | 2023-12-10 10:54 | RAD_ITS ---
STUDY: X-RAY CHEST REASON FOR EXAM: Female, 67 years old. HYPOXIA TECHNIQUE: PA and lateral views of the chest. COMPARISON: None. FINDINGS: The lungs are clear and expanded. There is no demonstrated pleural abnormality. There is mild cardiac enlargement. Normal mediastinum and murray. Normal visualized pulmonary arteries. Normal visualized aortic arch and descending thoracic aorta. Normal visualized thoracic spine. Normal visualized ribs, clavicles, and shoulders. There is no demonstrated abnormality of the visualized soft tissue structures of the upper abdomen. RAD/Chest PA and Lateral IMPRESSION: No active disease. Cardiomegaly. Electronically Signed: Golden Ngo MD at 17:36 EDT ,
[2023-12-10 10:58] LABS: Color, Urine Yellow (Yellow); Glucose, Dipstick Normal (Normal); Ketone-Dipstick Negative (Negative); Leukocyte Esterase-Dipstick 25 /ul (Negative); Nitrite-Dipstick Negative (Negative); Occult Blood-Urine Negative /ul (Negative); Protein-Dipstick 15 mg/dl (Negative); Specific Gravity, Urine 1.025 (1.002-1.030); Urine Bilirubin Dipstick Negative (Negative); Urine Clarity Sl. Cloudy (Clear); Urine Urobilinogen Normal (Normal)
[2023-12-10 10:59] LABS: Absolute Lymphocyte Count 1.84 X10^3/uL (0.83-4.51); Absolute Neutrophil Count 5.8 X10^3/uL (2.0-7.7); Basophil# 0.06 X10^3/uL; Basophil% 0.7 % (0-1); Eosinophil# 0.26 X10^3/uL; Eosinophils% 2.9 % (0-5); Hematocrit 49.7 % (37-47); Hemoglobin 15.6 g/dL (12.0-15.0); Lymphocyte # 1.84 X10^3/ul (0.83-4.51); Lymphocyte % 20.2 % (19-41); Mean Corp Hgb Conc 31.4 g/dL (32-36); Mean Corpuscular Hgb 29.3 pg (27.0-32.0); Mean Corpuscular Volume 93.4 fL (81-99); Mean Platelet Vol. 10.5 fl (6.2-12.0); Monocyte# 1.09 X10^3/uL; NRBC Flagged by Analyzer 0 % (0-5); Neutrophil # 5.82 X10^3/uL (2.7-7.7); Platelet Count 205 K/mm3 (150-450); RBC Distribution Width CV 11.1 % (11.6-14.6); RBC Distribution Width SD 37.5 fl (35.1-43.9); Red Blood Count 5.32 M/mm3 (4.2-5.4); White Blood Count 9.1 K/mm3 (4.4-11.0)
[2023-12-10 11:39] LABS: ALB/GLOB Ratio 0.8 RATIO (0.9-2.4); AST(SGOT) 27 U/L (15-37); Alanine Aminotransfer ALT/SGPT 22 U/L (13-56); Albumin, Serum 3.2 g/dL (3.2-5.0); Alkaline Phosphatase 136 U/L (45-117); Anion Gap 5 (5-15); BUN 22 mg/dL (7-18); BUN/Creat Ratio 24.6 RATIO (10-20); Calcium,Total 9.3 mg/dL (8.5-10.1); Chloride 106 mmol/L (98-107); EST Glomerular Filtration Rate 66 mL/min (>60); Est Glom Filt Rate - Afr Amer 80 mL/min (>60); Glucose 59 mg/dL (74-106); Potassium 4.3 mmol/L (3.5-5.1); Protein, Total 7.2 g/dL (6.4-8.2); Sodium Level 141 mmol/L (136-145)
== END | disposition home or self-care (01) ==
PROVIDERS: PCP Family Medicine Geriatric Medicine; Referring Provider Family Medicine Geriatric Medicine; Visit Provider Family Medicine Geriatric Medicine
DX: I10 Essential (primary) hypertension (principal); N39.0 Urinary tract infection, site not specified; R09.02 Hypoxemia
CPT/HCPCS: 36415; 71046; 80053; 81001; 85025; 87086; 87088

== ENCOUNTER 2024-01-11 12:49 | Inpatient (IN) | payer MEDICARE, MEDICAID, SELFPAY ==
[2024-01-11] VITALS (24 sets, daily range): BP systolic 100–201; BP diastolic 63–155; PULSE 64–98; RESP 14–22; TEMP 36.5–37.1; O2SAT 84–99; BMI 29.9; BMI 30.7; BMI 28.5
--- NOTE | 2024-01-11 13:15 | ED.RN ---
DUMP TRUCK DRIVER OFF [address] WAS CALLED TO OUTPATIENT WITH A FALL. PT WAS LEAVING FROM SEEING DR VERMA AND HAVING A CT DONE FROM A PREVIOUS FALL THIS MORNING. WHEN LEAVING SHE TOOK A FALL OUTSIDE. PRESENT WITH PT IS [employer]IT OPERATOR, CHELO, WHO STATES SHE HAS BEEN MORE WEAK AND DR VERMA STATED HE FELT THE COUGH AND WEAKNESS WAS RELATED TO VIRUS. [employer]ING UNIT OPERATOR SAID THEY ARE TRYING TO GET HER PLACED IN A [facility] BUT THE DISCUSSION UPSETS THE PT. AT HOME SHE IS DECLINING IN HER PERSONAL HYG AND UP-KEEP. PT CAME TO US IN THE ED FOLLOWING HER SECOND FALL TODAY. AN NIH WAS PERFORMED WITH A SCORE OF 3. THE SCORE REFLECTS SOME RIGHT SIDED WEAKNESS FROM A PREVIOUS STROKE AND REPRESENTS BASELINE FOR THE PT, PER [employer]ING UNIT OPERATOR. BS IS 78. PT IS AGITATED AND WANTS TO GO HOME. [employer]ING UNIT OPERATOR WANTED DR VERMA TO KEEP HER BUT SHE WAS D/C.
--- NOTE | 2024-01-11 13:32 | EKG12_ITS ---
Test Reason : FALL Blood Pressure : / mmHG Vent. Rate : 073 BPM Atrial Rate : 073 BPM P-R Int : 162 ms QRS Dur : 090 ms QT Int : 420 ms P-R-T Axes : 055 -09 061 degrees QTc Int : 462 ms Normal sinus rhythm Septal infarct (cited on or before 12-JUN-2023) Abnormal ECG Confirmed by Jordan Glover ([id number]), pediatric medical assistant MARISSA TONG ([id number]) on 01/14/2024 9:42:28 AM Referred By: ALFREDITO/ROSA Confirmed By:Jordan Glover
[2024-01-11] MEDS: Albuterol 2.5 MG/3 ML VIAL.NEB. INHALATION ×3 (13:58)
[2024-01-11 14:27] LABS: Lactic Acid 1.6 mmol/L (0.4-1.9)
--- NOTE | 2024-01-11 15:14 | CT_ITS ---
EXAM: CT ANGIOGRAPHY CHEST WITHOUT AND WITH INTRAVENOUS CONTRAST CLINICAL INDICATION: Hypoxia TECHNIQUE: Helically acquired angiography images were obtained of the chest without and with intravenous contrast. This CT exam was performed using one or more of the following dose reduction techniques: automated exposure control, adjustment of the mA and/or kV according to patient size, and/or use of iterative reconstruction technique. MIP reconstructed images were created and reviewed. CONTRAST: IV 75mL [id number] COMPARISON: No relevant prior studies available. FINDINGS: PULMONARY ARTERIES: Unremarkable. Normal in caliber. No evidence of pulmonary embolism. AORTA: Unremarkable. Normal in caliber. No evidence of dissection. GREAT VESSELS OF AORTIC ARCH: Unremarkable. Normal in caliber. No evidence of dissection. LUNGS AND PLEURAL SPACES: There is minimal atelectasis in the lung bases. No mass. No pleural effusion or thickening. No pneumothorax. HEART: Unremarkable. Heart size is normal. No pericardial effusion. No significant coronary artery calcifications. MEDIASTINUM: Unremarkable. No mediastinal or hilar adenopathy. Esophagus is unremarkable. No hiatal hernia. THYROID: Unremarkable. No thyroid lesions. BONES/JOINTS: Unremarkable. No suspicious lytic or blastic abnormality. CT/CTA Chest W/WO Contrast IMPRESSION: No evidence of pulmonary embolus. There is minimal bibasilar atelectasis. Electronically Signed: Simone Abdullahi MD at 16:32 EDT ,
[2024-01-11 15:18] LABS: Bedside Glucose 73 mg/dL (74-106)
[2024-01-11 15:21] LABS: Bacteria 0 SEEN /hpf (None Seen); Mucous, Urine 0 SEEN /hpf (<or=2+); Red Blood Cells-Urine 0 SEEN /hpf (0-5); Squamous Epithelial Cells - UA 0 SEEN /hpf (5-10); White Blood Cells 0 SEEN /hpf (0-5)
[2024-01-11 15:31] LABS: Color, Urine Yellow (Yellow); Glucose, Dipstick Normal (Normal); Ketone-Dipstick 5 mg/dl (Negative); Leukocyte Esterase-Dipstick Negative /ul (Negative); Nitrite-Dipstick Negative (Negative); Occult Blood-Urine Negative /ul (Negative); Protein-Dipstick 30 mg/dl (Negative); Specific Gravity, Urine 1.025 (1.002-1.030); Urine Clarity Sl. Cloudy (Clear); Urine Urobilinogen Normal (Normal)
--- NOTE | 2024-01-11 15:31 | EDS_ITS ---
HPI History of Present Illness Chief Complaint: Neuro S/Sx Detail of Chief Complaint: Fall, hypoxia, weakness, fatigue and exposure to COVID Informant: patient, PCP (Dr. Paz's nurse called down to inform me that patient was coming. I took the note.) and other Limited: other (Cognitive impairment) Onset/Context/Timing Onset: - (Uncertain presume within the past couple of days; see HPI narrative for details) Context: - (Uncertain) Timing: - (Uncertain) Quality: HPI narrative Location: HPI narrative Current Severity: Mild (On 3 L by nasal cannula) Maximum Severity: Moderate Worsened by: Dyspnea with exertion Relieved by: Better with rest Associated Symptoms Associated Symptoms: Frequent falls Narrative Narrative: Patient is a 68-year-old woman. She has history of CVA, cognitive impairment, secondary parkinsonism, hypertension (not on any antihypertensive meds) depression and vitamin D deficiency. There is also reported history of dementia. Patient is not a good informant for multiple reasons. She was found on the floor this morning by agency that looks after her. She lives alone. She does not know the circumstances led to her being on the floor. She was taken to Dr. Fowler's office. He ordered a CT of the head, chest x-ray and blood work. Blood work had to be repeated since it hemolyzed. Patient denies head pain or headache. Patient [place] double vision blurred vision loss of vision. Patient denies ear pain or ringing or ears. Patient denies rhinorrhea, congestion, postnasal drainage sore throat. Agency personnel states there was no nosebleed. Patient denies neck pain. Patient denies cough. She is wheezing. She has no history of asthma. Patient denies abdominal pain, vomiting or diarrhea. Patient denies urologic symptoms. Prior similar symptoms: No Recent Illness/Hospitalization: No [facility] Medical History Cerebrovascular disease MCI (mild cognitive impairment) History of UTI Chronic bronchitis Developmental disorder Home Medications ?Medication ?Instructions ?Recorded ?Last Taken ?Type desipramine 100 mg tablet 100 mg PO QHS 02/13/17 01/10/24 History rosuvastatin 10 mg tablet 10 mg PO QHS CHOLESTEROL LOWERING 02/13/17 01/10/24 History sertraline 100 mg tablet 150 mg PO DAILY 10/30/22 01/10/24 History Med Alert Button #1 ea 05/02/23 Unknown Rx Rollator #1 ea 05/07/23 Unknown Rx aspirin 81 mg tablet,delayed See Rx Instructions .Route 08/29/23 01/11/24 Rx release .COMPLEX #60 tabs cholecalciferol (vitamin D3) 1,250 1,250 mcg PO QMONTH #1 cap 08/29/23 Unknown Rx mcg (50,000 unit) capsule donepezil 10 mg tablet See Rx Instructions .Route 08/29/23 01/10/24 Rx .COMPLEX #30 tabs propranolol 60 mg capsule,24 60 mg PO QAM #30 caps 08/29/23 01/11/24 Rx hr,extended release risperidone 0.5 mg tablet 0.5 mg PO QHS #30 tabs 08/29/23 01/10/24 Rx (Risperdal) aripiprazole 5 mg tablet 5 mg PO DAILY 01/11/24 01/11/24 History calcium carbonate 1,000 mg PO DAILY 01/11/24 01/11/24 History melatonin 5 mg tablet 5 mg PO QHS 01/11/24 01/10/24 History Allergy/AdvReac Type Severity Reaction Status Date / Time No Known Allergies Allergy Verified 01/11/24 13:01 Social History Smoking Status: Current every day smoker tobacco type: cigarettes Tobacco: How many years used: 50 Electronic Cigarette Use: not used second hand exposure: Yes alcohol intake: never substance use type: does not use seatbelt use: always ROS ROS ED Constitutional Constitutional ED: Reports other Details: Patient smells of tobacco. She is presently on 3 L of oxygen by nasal cannula with a 90 to 92% saturation. ; Denies chills, fever(s), subjective or sweats Eyes Eyes: Denies blurry vision or change in vision ENT ENT ED: Denies ear pain, rhinorrhea or sore throat Cardiovascular Cardiovascular: Denies chest pain, orthopnea, palpitations or paroxysmal nocturnal dyspnea Respiratory/Chest Respiratory/Chest: Reports dyspnea, dyspnea on exertion and other Details: Positive wheezing. ; Denies cough, orthopnea, paroxysmal nocturnal dyspnea or sputum Gastrointestinal Gastrointestinal: Denies abdominal pain, melena, nausea or vomiting Genitourinary Genitourinary ED: Denies dysuria, hematuria or urinary frequency Musculoskeletal Musculoskeletal: Denies arthralgias or myalgias Integumentary Denies Abrasions or rash Neurologic Neurologic: Reports weakness; Denies headache(s) or paresthesias Psychiatric Psychiatric: Denies anxiety Endocrine Endocrinology: Denies cold intolerance or heat intolerance Hematologic/Lymphatic Hematologic/Lymphatic: Reports systems reviewed and no addt'l complaints, except as documented EXAM Physical Exam Const Vital Signs: 01/11/24 12:50 01/11/24 12:56 01/11/24 13:20 Temperature 98.3 F Temperature Source Oral Pulse Rate 73 Respiratory Rate 18 Respiratory Effort Normal Non-Labored Respiratory Pattern Blood Pressure 184/96 H Blood Pressure Mean 125 Pulse Ox 90 89 Oxygen Delivery Method Room Air Room Air Oxygen Flow Rate (L/min) Fraction of Inspired Oxygen (FIO2) 01/11/24 13:23 01/11/24 13:59 01/11/24 13:59 Temperature Temperature Source Pulse Rate 72 Respiratory Rate 17 Respiratory Effort Respiratory Pattern Normal Blood Pressure Blood Pressure Mean Pulse Ox 93 96 Oxygen Delivery Method Nasal Cannula Nasal Cannula Oxygen Flow Rate (L/min) 3 Fraction of Inspired Oxygen (FIO2) 3 01/11/24 14:00 01/11/24 15:00 01/11/24 16:00 Temperature Temperature Source Pulse Rate 70 98 67 Respiratory Rate 20 H 14 18 Respiratory Effort Respiratory Pattern Blood Pressure 201/114 H 198/105 H 194/110 H Blood Pressure Mean 143 136 138 Pulse Ox 99 98 98 Oxygen Delivery Method Nasal Cannula Nasal Cannula Room Air Oxygen Flow Rate (L/min) 2 Fraction of Inspired Oxygen (FIO2) 01/11/24 16:02 01/11/24 16:15 01/11/24 16:30 Temperature Temperature Source Pulse Rate 66 67 72 Respiratory Rate 17 19 H 18 Respiratory Effort Respiratory Pattern Blood Pressure 194/110 H 198/105 H Blood Pressure Mean 136 132 Pulse Ox 99 98 98 Oxygen Delivery Method Oxygen Flow Rate (L/min) Fraction of Inspired Oxygen (FIO2) 01/11/24 16:45 01/11/24 16:46 01/11/24 17:00 Temperature Temperature Source Pulse Rate 65 73 70 Respiratory Rate 15 22 H 16 Respiratory Effort Respiratory Pattern Blood Pressure 200/155 H 110/85 H Blood Pressure Mean 169 94 Pulse Ox 96 94 96 Oxygen Delivery Method Oxygen Flow Rate (L/min) Fraction of Inspired Oxygen (FIO2) Positive well nourished and well developed General Appearance ED: well developed [facility] Lab Data Attestation: I reviewed the patient's lab results. Lab results narrative: Blood work was obtained from Dr. Fowler's office. White count was normal. H&H is 15 5 and 49.6 which is unchanged from baseline. Basic metabolic panel reveals a sodium 134 with a normal chloride. BUN is 19 with a creatinine of 0.93. This is baseline. BUN to creatinine ratio is 20.5-1. Alkaline phosphatase slightly elevated 134, this is not an abnormal finding for patient. Lactate was normal at 1.6. Labs: Laboratory Results - last 24 hr 01/11/24 01/11/24 01/11/24 13:12 13:42 15:14 Lactic Acid 1.6 Urine Color Yellow Urine Clarity Sl. Cloudy Urine pH 5.0 Ur Specific [place] 1.025 Urine Protein 30 H Urine Glucose (UA) Normal Urine Ketones 5 H Urine Occult Blood Negative Urine Nitrite Negative Urine Bilirubin 1 H Urine Urobilinogen Normal Ur Leukocyte Esterase Negative Urine RBC 0 SEEN Urine WBC 0 SEEN Ur Squamous Epith Cells 0 SEEN Urine Bacteria 0 SEEN Urine Mucus 0 SEEN POC Glucose 73 L Urinalysis is normal. Radiography Chest X-Ray - ED: 2 View and Read by ED Physician (Chest x-ray is ordered from Dr. Fowler's office. The chest x-ray was reviewed by me independently prior to r adiology read. There is no evidence of pneumonia, effusion, CHF, pneumothorax. Cardiac silhouette size normal. [place] structures are unremarkable for any acute changes. 2 views were obtained) Diagnostic Testing: Clinical Impression(s) from Imaging Studies Chest CTA 01/11/24 15:14 IMPRESSION: No evidence of pulmonary embolus. There is minimal bibasilar atelectasis. Electronically Signed: Simone Abdullahi MD at 16:32 EDT , CT of the chest reveals in my opinion a right lower lobe pneumonia. I see no evidence of PE. CTA of the chest was obtained because patient was hypoxic with no abnormal findings on chest x-ray and negative swab for influenza, RSV and COVID. CT reveals bibasilar similar atelectasis without evidence of pneumonia. Treatment and Re-Evaluation :: The person that watches over her states she is on propranolol 60 mg. Patient did not receive propranolol or beta-aurelio since she is still wheezing. My independent review of the CAT scan reveals in my opinion a right lower lobe infiltrate. Awaiting formal read. Since lactate is normal will not need blood cultures prior to administration of antibiotics. She does not meet criteria for sepsis with organ dysfunction. Her blood pressure is markedly elevated. She was treated with clonidine 0.2 mg p.o. Patient's blood pressure still greater than 200. She was given 10 of hydralazine IV push. Dr. Lyons saw patient. Discussed unit the placement. She felt patient could go to [facility] since there is no evidence of endorgan dysfunction i.e. hypertensive urgency/emergency. Critical Care Time Critical Care Time: Yes Critical care time (excluding procedures): 30-74 minutes (31), Including time spent: (History, physical, documentation, discussion with Dr. Torres's office staff, review of prior records, independent rotation of laboratory results and chest x-ray), Discussing w/Patient &/or Family/Restaurant Cashier (Agency personnel to [facility] coordinate supervision.), Discussing w/Consultants (Hospitalist) and Arranging Admission or Transfer Discharge Plan Dx/Rx/DC Orders Clinical Impression: Acute hypoxic respiratory failure, Abnormality of gait and mobility, Anxiety, MCI (mild cognitive impairment), Accelerated essential hypertension, Acute bronchospasm, Frequent falls Disposition Disposition: Acute Care [facility]
[2024-01-11 15:37] LABS: Urine Bilirubin Dipstick 1 mg/dL (Negative)
[2024-01-11] MEDS: cloNIDine HCl 0.2 MG Tablet PO (15:50)
--- NOTE | 2024-01-11 17:10 | NURSING ---
MED SURG CARLI HYPOXIA, ACUTE BRONCHOSPASM, HYPERTENSION
--- NOTE | 2024-01-11 17:29 | PCM.HP.STD ---
HPI - General General Date of Admission: 01/11/24 Date of Service: 01/11/24 Chief Complaint: Shortness of breath HPI Narrative JERICA DICKEY, is a 68 F who presented to the emergency department at [facility] on 01/11/2024 with a chief complaint of shortness of breath. Patient reports that that she has had a dry cough and shortness of breath that has progressively worsened over the last 2 days. She has had no sputum production, no fever, no chills, and has been feeling well otherwise. She did admit to a known COVID exposure. She lives at alone but has a history of developmental disability and mild cognitive impairment and was found on the floor this morning by the agency that looks after her. It is unclear what led to her being on the floor. She evidently then had another fall while trying to get into the emergency department. We are questioning whether or not she was hypoxic and that is what caused her to fall. She was taken to Dr. Fowler's office this morning and he ordered a CT of the head, chest x-ray and blood work while in the office. She was subsequently sent to the emergency department. She does smoke and currently smoking about half a pack of cigarettes a daily but has smoked for a long period of time. She does not wear oxygen at baseline. Vital signs on presentation showed temperature of 98.3, heart rate 73, respiratory is 18 blood pressure was initially 184/96 however the cuff was small and repeat blood pressures after clonidine was given was 110/85. Oxygen saturation was 89% on room air however she was reported to be in the 70s and Dr. Fowler's office and improved to 96% on 3 L nasal cannula. CBC shows an elevated hemoglobin level which appears to be baseline for her. She does not have a white count or left shift. She does have a monocytosis. Chemistry panel shows mild hyponatremia with a sodium of 134 but is otherwise unremarkable. Lactic acid was normal at 1.6. Liver functions are normal. TSH is 1.7. UA is unremarkable. CT of the brain done as an outpatient shows only chronic involutional changes. Chest x-ray showed scarring at the lung bases but a stable exam compared to previous and CTA of the chest showed no PE or dissection and minimal bibasilar atelectasis. REPLACED BY [facility] Medical History (Updated 01/11/24 @ 17:[address] Zo Lyons, DO) Erythrocytosis Cerebrovascular disease MCI (mild cognitive impairment) History of UTI Chronic bronchitis Developmental disorder Home Medications ?Medication ?Instructions ?Recorded ?Last Taken ?Type desipramine 100 mg tablet 100 mg PO QHS 02/13/17 01/10/24 History rosuvastatin 10 mg tablet 10 mg PO QHS CHOLESTEROL LOWERING 02/13/17 01/10/24 History sertraline 100 mg tablet 150 mg PO DAILY 10/30/22 01/10/24 History Med Alert Button #1 ea 05/02/23 Unknown Rx Rollator #1 ea 05/07/23 Unknown Rx aspirin 81 mg tablet,delayed See Rx Instructions .Route 08/29/23 01/11/24 Rx release .COMPLEX #60 tabs cholecalciferol (vitamin D3) 1,250 1,250 mcg PO QMONTH #1 cap 08/29/23 Unknown Rx mcg (50,000 unit) capsule donepezil 10 mg tablet See Rx Instructions .Route 08/29/23 01/10/24 Rx .COMPLEX #30 tabs propranolol 60 mg capsule,24 60 mg PO QAM #30 caps 08/29/23 01/11/24 Rx hr,extended release risperidone 0.5 mg tablet 0.5 mg PO QHS #30 tabs 08/29/23 01/10/24 Rx (Risperdal) aripiprazole 5 mg tablet 5 mg PO DAILY 01/11/24 01/11/24 History calcium carbonate 1,000 mg PO DAILY 01/11/24 01/11/24 History melatonin 5 mg tablet 5 mg PO QHS 01/11/24 01/10/24 History Allergy/AdvReac Type Severity Reaction Status Date / Time No Known Allergies Allergy Verified 01/11/24 13:01 unable to obtain (Patient unclear) no surgical history Social History (Updated 01/11/24 @ 17:[address] Zo Lyons, DO) household members: none housing: apartment Smoking Status: Current every day smoker tobacco type: cigarettes Tobacco: How many years used: 50 Electronic Cigarette Use: not used second hand exposure: Yes alcohol intake: never substance use type: does not use seatbelt use: always ROS Constitutional Constitutional: Reports fatigue and weakness; Denies anorexia, change in weight, chills, fever(s), malaise, night sweats or other Eyes Eyes: Denies blurry vision, change in eye color, change in vision, discharge from eye(s), double vision, erythema, eye pain, loss of vision or other ENT HEENT: Denies abnormal hearing, dysphagia, ear pain, epistaxis, headache(s), hearing loss, nasal congestion, nasal discharge, post nasal drip, sinus pressure, sore throat or other Cardiovascular Cardiovascular: Denies chest pain, claudication, dyspnea on exertion, edema, lightheadedness, orthopnea, palpitations, paroxysmal nocturnal dyspnea, rapid heart rate, syncope or other Respiratory/Chest Respiratory/Chest: Reports cough, shortness of breath at rest, shortness of breath with exertion and wheezing; Denies dyspnea, excessive phlegm production, hemoptysis, productive cough or other Gastrointestinal Gastrointestinal: Denies abdominal pain, coffee ground emesis, constipation, diarrhea, dyspepsia, hematemesis, hematochezia, loose stools, melena, nausea, vomiting or other Genitourinary Genitourinary: Denies burning urination, difficulty urinating, dysuria, hematuria, nocturia, urinary frequency, urinary hesitancy, urinary incontinence, urinary urgency or other Musculoskeletal Musculoskeletal: Denies arthralgias, back pain, joint pain, joint stiffness, joint swelling, myalgias, neck pain or other Neurologic Neurologic: Denies abnormal gait, abnormal speech, confusion, disequilibrium, dizziness, focal weakness, headache(s), numbness, paresthesias, seizure-like activity, seizures, syncope, tingling, tremor(s) or other Psychiatric Psychiatric: Reports anxiety and depression; Denies homicidal ideation, suicidal ideation or other Endocrine Endocrinology: Denies change in body appearance, cold intolerance, excessive sweating, heat intolerance, polydipsia, polyuria or other Hematologic/Lymphatic Hematologic/Lymphatic: Denies anemia, easy bleeding, easy bruising, lymphadenopathy or other Allergic/Immunologic Allergic/Immunologic: Denies rhinitis, hives, eczemia, asthma or other Vital Signs Vital Signs Vital Signs: 01/11/24 12:50 01/11/24 12:56 01/11/24 13:20 Temperature 98.3 F Temperature Source Oral Pulse Rate 73 Respiratory Rate 18 Respiratory Effort Normal Non-Labored Respiratory Pattern Blood Pressure 184/96 H Blood Pressure Mean 125 Pulse Ox 90 89 Oxygen Delivery Method Room Air Room Air Oxygen Flow Rate (L/min) Fraction of Inspired Oxygen (FIO2) 01/11/24 13:23 01/11/24 13:59 01/11/24 13:59 Temperature Temperature Source Pulse Rate 72 Respiratory Rate 17 Respiratory Effort Respiratory Pattern Normal Blood Pressure Blood Pressure Mean Pulse Ox 93 96 Oxygen Delivery Method Nasal Cannula Nasal Cannula Oxygen Flow Rate (L/min) 3 Fraction of Inspired Oxygen (FIO2) 3 01/11/24 14:00 01/11/24 15:00 01/11/24 16:00 Temperature Temperature Source Pulse Rate 70 98 67 Respiratory Rate 20 H 14 18 Respiratory Effort Respiratory Pattern Blood Pressure 201/114 H 198/105 H 194/110 H Blood Pressure Mean 143 136 138 Pulse Ox 99 98 98 Oxygen Delivery Method Nasal Cannula Nasal Cannula Room Air Oxygen Flow Rate (L/min) 2 Fraction of Inspired Oxygen (FIO2) 01/11/24 16:02 01/11/24 16:15 01/11/24 16:30 Temperature Temperature Source Pulse Rate 66 67 72 Respiratory Rate 17 19 H 18 Respiratory Effort Respiratory Pattern Blood Pressure 194/110 H 198/105 H Blood Pressure Mean 136 132 Pulse Ox 99 98 98 Oxygen Delivery Method Oxygen Flow Rate (L/min) Fraction of Inspired Oxygen (FIO2) 01/11/24 16:45 01/11/24 16:46 01/11/24 17:00 Temperature Temperature Source Pulse Rate 65 73 70 Respiratory Rate 15 22 H 16 Respiratory Effort Respiratory Pattern Blood Pressure 200/155 H 110/85 H Blood Pressure Mean 169 94 Pulse Ox 96 94 96 Oxygen Delivery Method Oxygen Flow Rate (L/min) Fraction of Inspired Oxygen (FIO2) 01/11/24 17:26 01/11/24 17:27 Temperature 97.7 F L 97.7 F L Temperature Source Temporal Pulse Rate 69 69 Respiratory Rate 18 18 Respiratory Effort Respiratory Pattern Blood Pressure 101/66 101/66 Blood Pressure Mean 77 77 Pulse Ox 93 96 Oxygen Delivery Method Nasal Cannula Oxygen Flow Rate (L/min) 6 Fraction of Inspired Oxygen (FIO2) Weight Weight: 69.1 kg Body Mass Index (BMI) 30.7 Physical Exam Const alert, oriented x3, no apparent distress and well nourished; Negative for average body habitus or healthy appearing Constitutional Narrative: Obese, upper middle-aged, white female, appears older than stated age, sitting up in bed currently comfortable on 5 L nasal cannula, caregiver at bedside, patient does not appear toxic and no signs of respiratory extremis General Appearance: cooperative HEENT normocephalic, head/scalp atraumatic, hearing grossly normal bilaterally and moist oral mucous membranes HEENT Narrative: Dentures in place, Mallampati 3, no thrush Eyes PERRL, EOMs intact bilaterally and conjunctivae normal Eyes Narrative: No scleral icterus Neck no lymphadenopathy and supple Neck Narrative: Trachea midline, no thyroid enlargement Resp normal respiratory effort, no retractions, no use of accessory muscles and No clear to auscultation bilaterally Resp Narrative: Diffuse scattered end expiratory wheezes, no current tachypnea Auscultation: Negative for rales or rhonchi Cardio regular rate, regular rhythm, S1 normal heart sound, S2 normal heart sound, no murmurs, no rub, no gallops and no clicks GI normal to inspection, nondistended, normoactive bowel sounds, soft to palpation and non-tender Extremity no clubbing, cyanosis or edema Extremity Narrative: Pedal and radial pulses are 2+ Skin no rashes or lesions noted, no wounds, skin turgor normal, no jaundice, no petechiae and no mottling Neuro oriented x3, CN's II-XII intact bilaterally, moves all extremities and no focal motor deficits Speech: speech normal Psych affect normal Psych Narrative: Calm, interacts appropriately, answers questions Results Lab / Micro Data Labs: Laboratory Results - last 24 hr 01/11/24 13:12: POC Glucose 73 L 01/11/24 13:42: Lactic Acid 1.6 01/11/24 15:14: Urine Color Yellow, Urine Clarity Sl. Cloudy, Urine pH 5.0, Ur Specific [place] 1.025, Urine Protein 30 H, Urine Glucose (UA) Normal, Urine Ketones 5 H, Urine Occult Blood Negative, Urine Nitrite Negative, Urine Bilirubin 1 H, Urine Urobilinogen Normal, Ur Leukocyte Esterase Negative, Urine RBC 0 SEEN, Urine WBC 0 SEEN, Ur Squamous Epith Cells 0 SEEN, Urine Bacteria 0 SEEN, Urine Mucus 0 SEEN Micro: Microbiology 01/11/24 13:42 Mucosa - Nasopharyngeal SARS-CoV-2, Influenza & RSV (PCR) - Final Imaging Radiology Impression Chest CTA 01/11/24 15:14 IMPRESSION: No evidence of pulmonary embolus. There is minimal bibasilar atelectasis. Electronically Signed: Simone Abdullahi MD at 16:32 EDT , Assessment & Plan Assessment/Plan (1) Acute hypoxic respiratory failure: (2) Acute bronchospasm: (3) COPD with acute exacerbation: (4) Frequent falls: (5) Hyponatremia: PLAN: Plan Acute hypoxic respiratory failure secondary to acute exacerbation of COPD -Patient is not oxygen dependent at baseline and required up to 6 L in the emergency department due to hypoxia -I was able to wean her down to 4 L by the time of my evaluation -Continue oxygen as needed and wean as able -Patient will need ambulatory pulse ox prior to discharge -COVID/flu/RSV is negative -Check respiratory viral panel -CTA negative for PE/dissection or infiltrate -Aggressive pulmonary toilet with scheduled and as needed DuoNebs -I-S -Acapella 10 times every 2 hours while awake -Scheduled Mucinex -Solu-Medrol 40 every 8 -Would recommend pulmonary medicine evaluation as an outpatient as patient does not follow-up with pulmonary medicine Frequent falls -PT/OT consultation -Case management/social work consultation Erythrocytosis -Likely related to chronic hypoxia or intermittent hypoxia related to her tobacco abuse -Appears to be chronically elevated at this point -No further workup acutely Mild hyponatremia -Sodium is 134 -Likely related to pulmonary issues -Repeat lab in a.m. -No need for further workup at this time Osteopenia/vitamin D deficiency -Continue home calcium carbonate -Restart vitamin D supplementation at discharge Bipolar disorder/anxiety/depression/learning disability/secondary parkinsonism -Continue home aripiprazole -Continue home desipramine -hold propranolol for bronchospasm -Continue home risperidone -Continue home sertraline Essential HTN/HPL -Continue home rosuvastatin -Hold home propranolol -As needed hydralazine available for systolic blood pressure greater than 160 -Patient did get 0.2 of clonidine in the emergency department Learning disability -Patient has an agency that helps with her care however she does live independently and alone History of stroke -MRI from 05/31/2023 showed small acute left frontal cortical/subcortical infarct -Continue aspirin 162 mg p.o. twice daily -Continue treatment for modifiable risk factors -Follows with neurology as an outpatient History of hallucinations -Risperidone was started for this and hallucinations had resolved Mild cognitive impairment -Continue Aricept -Follows with neurology DVT prophylaxis -Subcu Lovenox 40 daily CODE STATUS -Full code Charges/Coding Visit Charges Inpatient E&M: 99105 Init Hosp L2
--- NOTE | 2024-01-11 20:07 | NURSING ---
pt unable to answer questions about history
[2024-01-11] MEDS: 0.9% Saline Lock 10 ML Syringe IV (21:58)
[2024-01-11] MEDS: Donepezil HCl 10 MG Tablet PO (22:02)
[2024-01-11] MEDS: Atorvastatin Calcium 20 MG Tablet PO (22:03)
[2024-01-11] MEDS: Menthol/Lanolin/Calamine/Znox 113 GM Tube 1 APPLIC TOPICAL (22:03)
[2024-01-11] MEDS: MELATONIN 10 MG TABLET 5 MG PO (22:04)
[2024-01-11] MEDS: guaiFENesin 1,200 MG Tablet 1200 MG PO (22:04)
[2024-01-11] MEDS: RisperiDONE 0.5 MG Tablet PO (22:05)
[2024-01-11] MEDS: Nystatin Powder 15gm Bottle 1 APPLIC TOPICAL (22:05)
[2024-01-11] MEDS: Sertraline 100 MG Tablet 150 MG PO (22:06)
[2024-01-11] MEDS: Ipratropium/Albuterol Sulfate 3 ML AMPUL.NEB INHALATION (22:47)
[2024-01-12] VITALS (12 sets, daily range): BP systolic 132–172; BP diastolic 80–92; PULSE 68–79; RESP 16–20; TEMP 36.4–36.8; O2SAT 90–93
[2024-01-12] MEDS: Ipratropium/Albuterol Sulfate 3 ML AMPUL.NEB INHALATION ×5 (03:02→23:16)
[2024-01-12] MEDS: hydrALAZINE 20 MG/ML Vial 10 MG IV (05:04)
[2024-01-12] MEDS: 0.9% Saline Lock 10 ML Syringe IV ×2 (05:05→14:56)
[2024-01-12 06:21] LABS: Absolute Lymphocyte Count 0.92 X10^3/uL (0.83-4.51); Absolute Neutrophil Count 6.4 X10^3/uL (2.0-7.7); Basophil# 0.02 X10^3/uL; Basophil% 0.3 % (0-1); Hematocrit 47.9 % (37-47); Hemoglobin 15.2 g/dL (12.0-15.0); Lymphocyte # 0.92 X10^3/ul (0.83-4.51); Lymphocyte % 12.1 % (19-41); Mean Corp Hgb Conc 31.7 g/dL (32-36); Mean Corpuscular Hgb 28.9 pg (27.0-32.0); Mean Corpuscular Volume 91.1 fL (81-99); Mean Platelet Vol. 11.3 fl (6.2-12.0); Monocyte# 0.27 X10^3/uL; Monocyte% 3.6 % (0-10); NRBC Flagged by Analyzer 0 % (0-5); Neutrophil # 6.36 X10^3/uL (2.7-7.7); Neutrophil % 83.6 % (47-70); Platelet Count 152 K/mm3 (150-450); RBC Distribution Width CV 11.2 % (11.6-14.6); RBC Distribution Width SD 37.5 fl (35.1-43.9); Red Blood Count 5.26 M/mm3 (4.2-5.4); White Blood Count 7.6 K/mm3 (4.4-11.0)
[2024-01-12 07:10] LABS: ALB/GLOB Ratio 0.8 RATIO (0.9-2.4); AST(SGOT) 29 U/L (15-37); Alanine Aminotransfer ALT/SGPT 23 U/L (13-56); Alkaline Phosphatase 117 U/L (45-117); Anion Gap 6 (5-15); BUN 20 mg/dL (7-18); BUN/Creat Ratio 27.8 RATIO (10-20); Calcium,Total 9.1 mg/dL (8.5-10.1); Chloride 99 mmol/L (98-107); Creatinine, Serum 0.72 mg/dL (0.55-1.02); EST Glomerular Filtration Rate 85 mL/min (>60); Est Glom Filt Rate - Afr Amer 103 mL/min (>60); Estimated Creatinine Clearance 58.72 ml/min; Globulin 3.9 g/dL (2.2-4.2); Glucose 121 mg/dL (74-106); Phosphorus 4.5 mg/dL (2.5-4.9); Potassium 4.6 mmol/L (3.5-5.1); Protein, Total 6.9 g/dL (6.4-8.2); Sodium Level 134 mmol/L (136-145); Thyroid Stim Hormone (TSH) 0.664 uIU/mL (0.358-3.740)
[2024-01-12] MEDS: Aspirin E.C. 81 MG Tablet 162 MG PO (08:00)
[2024-01-12] MEDS: Ensure Plus High Protein 120 ML LIQUID PO ×2 (08:00→21:16)
[2024-01-12] MEDS: Calcium (Elemental) 500 MG Tablet PO (08:01)
[2024-01-12] MEDS: Menthol/Lanolin/Calamine/Znox 113 GM Tube 1 APPLIC TOPICAL ×2 (08:01→21:14)
[2024-01-12] MEDS: ARIPiprazole 5 MG Tablet PO (08:01)
[2024-01-12] MEDS: guaiFENesin 1,200 MG Tablet 1200 MG PO ×2 (08:02→21:17)
[2024-01-12] MEDS: Nystatin Powder 15gm Bottle 1 APPLIC TOPICAL ×2 (08:02→21:17)
[2024-01-12] MEDS: Enoxaparin 40 MG/0.4 ML Syringe SC (08:05)
--- NOTE | 2024-01-12 10:13 | NURSING ---
Update given to care provider
--- NOTE | 2024-01-12 12:27 | CASEMGMT ---
Addendum entered by Brittney Narvaez 01/12/24 14:25: KERA MAURO called SW and notified of pt CM requesting pt go to TCU. Addendum entered by Brittney Narvaez 01/12/24 14:24: [employer] called back, Requested to see if TCU would accept pt. Denies list of local SNF, TCU is first choice. States pt has been getting weaker and would like for pt to receive additional therapy services. States pt was not previously on O2. Original Note: KERA MAURO Assessment: Face to Face with pt for initial transition planning/care coordination assessment. KERA MAURO introduced self and role at [facility], pt voices understanding and consents to assessment. Pt not a great historian. Pt sitting up in bed in no distress. Care providers, pharmacy, and demographics verified/updated. Strata: 2 Admitting Dx: Acute Hypoxic respiratory failure. PCP: [facility] Specialists: Does not recall what specialists she sees. Preferred Pharmacy: [facility] Insurance: JENNIFER Cunningham Prescription Benefit: yes LNOK: [employer] Living Arrangements: Pt lives alone in an apartment with no stairs to enter. ADLs:Pt states I with ADLs and IADLs. Transportation: Pt states CM provides transportation. DME: Rollator, WW, Shower chair, Grab bars HHC/SNF: Denies Hx of. Pt denies wanting any additional therapy at time of DC. Pt agreeable to CM calling community CM to discuss plan of care. KERA MAURO attempted to call community CM, left a VM to call back. CM to follow. Advised pt to ask CM if any further question/concerns/needs arise, voices understanding. Pt Goal: Home Plan: TBD, follow plan of care and discuss with community CM. Abhishek COTE CM
--- NOTE | 2024-01-12 13:19 | PN.HOSP_ITS ---
Reason for Visit Reason for Visit: Diagnoses Hypo-osmolality and hyponatremia (01/11/24) Chronic obstructive pulmonary disease with (acute) exacerbation (01/11/24) Acute respiratory failure with hypoxia (01/11/24) Acute bronchospasm (01/11/24) Repeated falls (01/11/24) Subjective Subjective Breathing is improving, however still on 4 L saturating low 90s, got up and moved around the room and is feeling somewhat better than she was, slight cough Objective Data Objective Data Vital Signs: Vital Signs Temp Pulse Resp BP Pulse Ox O2 Del Method O2 Flow Rate 98.2 F 70 18 172/86 H 93 Nasal Cannula 3 01/12/24 07:44 01/12/24 07:44 01/12/24 07:44 01/12/24 07:44 01/12/24 07:44 01/12/24 07:44 01/12/24 10:14 FiO2 3 01/11/24 13:23 Oxygen Flow Rate (L/min) 3 Oxygen Delivery Method Nasal Cannula Weight: 68.4 kg Body Mass Index (BMI) 28.5 Intake & Output: Intake and Output for Last 24 Hours 01/10/24 01/11/24 01/12/24 23:59 23:59 23:59 Intake Total 400 / 400 Output Total 250 / 250 Balance 150 / 150 Lab / Micro Data 01/12/24 05:10 01/12/24 05:10 Labs: Laboratory Results - last 24 hr 01/11/24 13:12: POC Glucose 73 L 01/11/24 13:42: Lactic Acid 1.6 01/11/24 15:14: Urine Color Yellow, Urine Clarity Sl. Cloudy, Urine pH 5.0, Ur Specific [place] 1.025, Urine Protein 30 H, Urine Glucose (UA) Normal, Urine Ketones 5 H, Urine Occult Blood Negative, Urine Nitrite Negative, Urine Bilirubin 1 H, Urine Urobilinogen Normal, Ur Leukocyte Esterase Negative, Urine RBC 0 SEEN, Urine WBC 0 SEEN, Ur Squamous Epith Cells 0 SEEN, Urine Bacteria 0 SEEN, Urine Mucus 0 SEEN 01/12/24 05:10: WBC 7.6, RBC 5.26, Hgb 15.2 H, Hct 47.9 H, MCV 91.1, MCH 28.9, M CHC 31.7 L, RDW Std Deviation 37.5, RDW Coeff of [place] 11.2 L, Plt Count 152, MPV 11.3, Immature Gran % (Auto) 0.400, Neut % (Auto) 83.6 H, Lymph % (Auto) 12.1 L, [place] % (Auto) 3.6, Eos % (Auto) 0.0, Baso % (Auto) 0.3, Absolute Neuts (auto) 6.4, Absolute Lymphs (auto) 0.92, Nucleated RBC % 0, Sodium 134 L, Potassium 4.6, Chloride 99, Carbon Dioxide 29.0, Anion Gap 6, BUN 20 H, Creatinine 0.72, Estim Creat Clear Calc 58.72, Est GFR (MDRD) Af Amer 103, Est GFR (MDRD) Non-Af 85, BUN/Creatinine Ratio 27.8 H, Glucose 121 H, Calcium 9.1, Phosphorus 4.5, Magnesium 2.0, Total Bilirubin 0.30, AST 29, ALT 23, Alkaline Phosphatase 117, Total Protein 6.9, Albumin 3.0 L, Globulin 3.9, Albumin/Globulin Ratio 0.8 L, TSH 0.664 Micro: Microbiology 01/11/24 20:10 Mucosa - Nasopharyngeal Respiratory Panel (PCR) - Final 01/11/24 13:42 Mucosa - Nasopharyngeal SARS-CoV-2, Influenza & RSV (PCR) - Final Radiography Diagnostic Testing: Radiology Impression Chest CTA 01/11/24 15:14 IMPRESSION: No evidence of pulmonary embolus. There is minimal bibasilar atelectasis. Electronically Signed: Simone Abdullahi MD at 16:32 EDT , Physical Exam Narrative General: Alert, oriented HEENT: Atraumatic, normocephalic Eyes: Anicteric, normal conjunctiva, extraocular movements grossly intact Neck: Supple Respiratory: Diminished, scattered wheezes, slight increase in respiratory effort Cardiovascular: Regular rate GI: Soft, nontender, nondistended Extremities: No significant pitting Musculoskeletal: Moving all extremities Neuro: No overt focal neurological deficits Skin: No rashes appreciated Psych: Cooperative Assessment & Plan Assessment/Plan (1) Acute hypoxic respiratory failure: (2) Acute bronchospasm: (3) COPD with acute exacerbation: (4) Frequent falls: (5) Hyponatremia: PLAN: Plan #Acute hypoxic respiratory failure secondary to acute exacerbation of COPD -Patient is not oxygen dependent at baseline and required up to 6 L in the emergency department due to hypoxia -I was able to wean her down to 4 L by the time of my evaluation -Continue oxygen as needed and wean as able -Patient will need ambulatory pulse ox prior to discharge -COVID/flu/RSV is negative -Check respiratory viral panel -CTA negative for PE/dissection or infiltrate -Aggressive pulmonary toilet with scheduled and as needed DuoNebs -I-S -Acapella 10 times every 2 hours while awake -Scheduled Mucinex -Solu-Medrol 40 every 8 -Would recommend pulmonary medicine evaluation as an outpatient as patient does not follow-up with pulmonary medicine -01/11: Still on 4 L of O2 satting low 90s, continue IV steroids and scheduled nebs, will likely need to go home on O2 # Frequent falls -PT/OT consultation -Case management/social work consultation -01/11: Given patient's clinical status and frequent falls her casework specialist would like for her to be placed prior to going home #Erythrocytosis -Likely related to chronic hypoxia or intermittent hypoxia related to her tobacco abuse -Appears to be chronically elevated at this point -No further workup acutely -01/11: Continues to be elevated, may need outpatient sleep study as well but likely due to her hypoxia Chronic medical problems: #Essential HTN/HPL -Continue home rosuvastatin -Hold home propranolol -As needed hydralazine available for systolic blood pressure greater than 160 -Patient did get 0.2 of clonidine in the emergency department -01/11: Quite variable, will start low-dose of amlodipine however due to persistent elevation #Bipolar disorder/anxiety/depression/learning disability/secondary parkinsonism/MCI -Continue home aripiprazole -Continue home desipramine -hold propranolol for bronchospasm -Continue home risperidone -Continue home sertraline -01/11: Seems stable at this time, continue present medications and continue Aricept, follows with neurology #Learning disability -Patient has an agency that helps with her care however she does live independently and alone -01/11: Her case management is involved with discharge planning #History of stroke -MRI from 05/31/2023 showed small acute left frontal cortical/subcortical infarct -Continue aspirin 162 mg p.o. twice daily -Continue treatment for modifiable risk factors -Follows with neurology as an outpatient DVT prophylaxis -Subcu Lovenox 40 daily CODE STATUS -Full code Time spent in the patient's overall evaluation,decision-making process, review of diagnostic data, adjustment of management, discussion with other providers, nursing nursing and ancillary staff involved in patient's care documentation, 36 minutes Charges/Coding Visit Charges Inpatient E&M: 46498 Subs Hosp L2
[2024-01-12] MEDS: RisperiDONE 0.5 MG Tablet PO (21:13)
[2024-01-12] MEDS: MELATONIN 10 MG TABLET 5 MG PO (21:16)
[2024-01-12] MEDS: Atorvastatin Calcium 20 MG Tablet PO (21:16)
[2024-01-12] MEDS: Donepezil HCl 10 MG Tablet PO (21:16)
[2024-01-12] MEDS: Sertraline 100 MG Tablet 150 MG PO (21:21)
[2024-01-13] VITALS (11 sets, daily range): BP systolic 129–159; BP diastolic 80–87; PULSE 77–93; RESP 16–20; TEMP 36.6–36.8; O2SAT 93–97
[2024-01-13] MEDS: Ipratropium/Albuterol Sulfate 3 ML AMPUL.NEB INHALATION ×4 (02:44→19:16)
[2024-01-13 06:29] LABS: Mean Corp Hgb Conc 31.3 g/dL (32-36); Mean Corpuscular Volume 92.7 fL (81-99); Mean Platelet Vol. 11.5 fl (6.2-12.0); Platelet Count 174 K/mm3 (150-450); RBC Distribution Width CV 11.1 % (11.6-14.6); RBC Distribution Width SD 37.8 fl (35.1-43.9); Red Blood Count 5.18 M/mm3 (4.2-5.4); White Blood Count 9.3 K/mm3 (4.4-11.0)
[2024-01-13 06:58] LABS: Anion Gap 5 (5-15); BUN 24 mg/dL (7-18); BUN/Creat Ratio 28.3 RATIO (10-20); Calcium,Total 9.4 mg/dL (8.5-10.1); Chloride 100 mmol/L (98-107); Creatinine, Serum 0.85 mg/dL (0.55-1.02); EST Glomerular Filtration Rate 71 mL/min (>60); Est Glom Filt Rate - Afr Amer 86 mL/min (>60); Estimated Creatinine Clearance 55.26 ml/min; Glucose 210 mg/dL (74-106); Sodium Level 135 mmol/L (136-145)
--- NOTE | 2024-01-13 08:03 | CPS ---
decreased pt to 3L NC at this time
[2024-01-13] MEDS: amLODIPine 5 MG Tablet PO (08:28)
[2024-01-13] MEDS: Menthol/Lanolin/Calamine/Znox 113 GM Tube 1 APPLIC TOPICAL ×2 (08:29→21:04)
[2024-01-13] MEDS: Enoxaparin 40 MG/0.4 ML Syringe SC (08:29)
[2024-01-13] MEDS: guaiFENesin 1,200 MG Tablet 1200 MG PO ×2 (08:29→21:03)
[2024-01-13] MEDS: Calcium (Elemental) 500 MG Tablet PO (08:29)
[2024-01-13] MEDS: ARIPiprazole 5 MG Tablet PO (08:29)
[2024-01-13] MEDS: Aspirin E.C. 81 MG Tablet 162 MG PO (08:29)
[2024-01-13] MEDS: Nystatin Powder 15gm Bottle 1 APPLIC TOPICAL ×2 (08:30→21:03)
[2024-01-13] MEDS: Ensure Plus High Protein 120 ML LIQUID PO (08:30)
--- NOTE | 2024-01-13 12:15 | PN.HOSP_ITS ---
Reason for Visit Reason for Visit: Diagnoses Hypo-osmolality and hyponatremia (01/11/24) Chronic obstructive pulmonary disease with (acute) exacerbation (01/11/24) Acute respiratory failure with hypoxia (01/11/24) Acute bronchospasm (01/11/24) Repeated falls (01/11/24) Subjective Subjective Patient still on 4 L of oxygen but reports she is feeling better overall, feels her strength is improving as well Objective Data Objective Data Vital Signs: Vital Signs Temp Pulse Resp BP Pulse Ox O2 Del Method O2 Flow Rate 97.9 F 77 18 159/87 H 94 Nasal Cannula 3 01/13/24 08:21 01/13/24 08:21 01/13/24 08:21 01/13/24 08:21 01/13/24 11:22 01/13/24 11:22 01/13/24 11:22 FiO2 3 01/11/24 13:23 Oxygen Flow Rate (L/min) 3 Oxygen Delivery Method Nasal Cannula Weight: 68.4 kg Body Mass Index (BMI) 28.5 Intake & Output: Intake and Output for Last 24 Hours 01/11/24 01/12/24 01/13/24 23:59 23:59 23:59 Intake Total 600 / 600 Output Total 250 / 250 Balance 350 / 350 Lab / Micro Data 01/13/24 05:03 01/13/24 05:03 Labs: Laboratory Results - last 24 hr 01/13/24 05:03: WBC 9.3, RBC 5.18, Hgb 15.0, Hct 48.0 H, MCV 92.7, MCH 29.0, M CHC 31.3 L, RDW Std Deviation 37.8, RDW Coeff of Kiera 11.1 L, Plt Count 174, MPV 11.5, Sodium 135 L, Potassium 4.0, Chloride 100, Carbon Dioxide 30.0, Anion Gap 5, BUN 24 H, Creatinine 0.85, Estim Creat Clear Calc 55.26, Est GFR (MDRD) Af Amer 86, Est GFR (MDRD) Non-Af 71, BUN/Creatinine Ratio 28.3 H, Glucose 210 H, Calcium 9.4 Micro: Microbiology 01/11/24 20:10 Mucosa - Nasopharyngeal Respiratory Panel (PCR) - Final 01/11/24 13:42 Mucosa - Nasopharyngeal SARS-CoV-2, Influenza & RSV (PCR) - Final Physical Exam Narrative General: Alert, oriented HEENT: Atraumatic, normocephalic Eyes: Anicteric, normal conjunctiva, extraocular movements grossly intact Neck: Supple Respiratory: Diminished, s no wheezes today, improving respiratory effort Cardiovascular: Regular rate GI: Soft, nontender, nondistended Extremities: No significant pitting Musculoskeletal: Moving all extremities Neuro: No overt focal neurological deficits Skin: No rashes appreciated Psych: Cooperative Assessment & Plan Assessment/Plan (1) Acute hypoxic respiratory failure: (2) Acute bronchospasm: (3) COPD with acute exacerbation: (4) Frequent falls: (5) Hyponatremia: PLAN: Plan #Acute hypoxic respiratory failure secondary to acute exacerbation of COPD -Patient is not oxygen dependent at baseline and required up to 6 L in the emergency department due to hypoxia -I was able to wean her down to 4 L by the time of my evaluation -Continue oxygen as needed and wean as able -Patient will need ambulatory pulse ox prior to discharge -COVID/flu/RSV is negative -Check respiratory viral panel -CTA negative for PE/dissection or infiltrate -Aggressive pulmonary toilet with scheduled and as needed DuoNebs -I-S -Acapella 10 times every 2 hours while awake -Scheduled Mucinex -Solu-Medrol 40 every 8 -Would recommend pulmonary medicine evaluation as an outpatient as patient does not follow-up with pulmonary medicine -01/11: Still on 4 L of O2 satting low 90s, continue IV steroids and scheduled nebs, will likely need to go home on O2 -01/12: No wheezes today, slowly improving, wean O2 as tolerated, continue IV steroids and nebs # Frequent falls -PT/OT consultation -Case management/social work consultation -01/11: Given patient's clinical status and frequent falls her case management manager would like for her to be placed prior to going home -01/12: Patient's ginseng farmer would like her to be placed in rehab prior to returning home, will discuss with case management and social work tomorrow pending progress #Essential HTN/HPL -Continue home rosuvastatin -Hold home propranolol -As needed hydralazine available for systolic blood pressure greater than 160 -Patient did get 0.2 of clonidine in the emergency department -01/11: Quite variable, will start low-dose of amlodipine however due to persistent elevation -01/12: Continues to be elevated, amlodipine to begin this morning, if remains elevated can consider increasing dose Chronic medical problems: #Bipolar disorder/anxiety/depression/learning disability/secondary parkinsonism/MCI -Continue home aripiprazole -Continue home desipramine -hold propranolol for bronchospasm -Continue home risperidone -Continue home sertraline -01/11: Seems stable at this time, continue present medications and continue Aricept, follows with neurology #Learning disability -Patient has an agency that helps with her care however she does live independently and alone -01/11: Her case management is involved with discharge planning #History of stroke -MRI from 05/31/2023 showed small acute left frontal cortical/subcortical infarct -Continue aspirin 162 mg p.o. twice daily -Continue treatment for modifiable risk factors -Follows with neurology as an outpatient DVT prophylaxis -Subcu Lovenox 40 daily CODE STATUS -Full code Charges/Coding Visit Charges Inpatient E&M: 56577 Subs Hosp L1
[2024-01-13] MEDS: 0.9% Saline Lock 10 ML Syringe IV (15:38)
[2024-01-13] MEDS: RisperiDONE 0.5 MG Tablet PO (21:02)
[2024-01-13] MEDS: Sertraline 100 MG Tablet 150 MG PO (21:02)
[2024-01-13] MEDS: MELATONIN 10 MG TABLET 5 MG PO (21:02)
[2024-01-13] MEDS: Atorvastatin Calcium 20 MG Tablet PO (21:03)
[2024-01-13] MEDS: Donepezil HCl 10 MG Tablet PO (21:03)
[2024-01-14] VITALS (10 sets, daily range): BP systolic 126–152; BP diastolic 74–98; PULSE 80–105; RESP 16–20; TEMP 36.6–37; O2SAT 87–95
[2024-01-14 05:03] LABS: Hematocrit 47.2 % (37-47); Hemoglobin 14.9 g/dL (12.0-15.0); Mean Corp Hgb Conc 31.6 g/dL (32-36); Mean Platelet Vol. 10.9 fl (6.2-12.0); Platelet Count 177 K/mm3 (150-450); RBC Distribution Width CV 11.1 % (11.6-14.6); Red Blood Count 5.13 M/mm3 (4.2-5.4)
[2024-01-14 05:23] LABS: Anion Gap 4 (5-15); BUN 22 mg/dL (7-18); BUN/Creat Ratio 31.5 RATIO (10-20); Calcium,Total 9.3 mg/dL (8.5-10.1); Chloride 102 mmol/L (98-107); EST Glomerular Filtration Rate 89 mL/min (>60); Est Glom Filt Rate - Afr Amer 107 mL/min (>60); Estimated Creatinine Clearance 58.72 ml/min; Glucose 111 mg/dL (74-106); Potassium 4.1 mmol/L (3.5-5.1); Sodium Level 137 mmol/L (136-145)
[2024-01-14] MEDS: Ipratropium/Albuterol Sulfate 3 ML AMPUL.NEB INHALATION ×4 (06:32→19:26)
--- NOTE | 2024-01-14 08:36 | CASEMGMT ---
Pt sister called to see if pt was accepted to TCU. RN CM informed her that referral was sent over weekend, waiting to hear if accepted into TCU.
--- NOTE | 2024-01-14 08:59 | CASEMGMT ---
Discharge Planning A list of?SNF providers including quality and resource use data and consistent with the patient's preferred geographic region, medical needs, and insurance network was created in [facility].? This list was provided to the SW. Sofi Rodriguez Discharge Planning Asst.
--- NOTE | 2024-01-14 09:56 | CASEMGMT ---
Addendum entered by Gretchen Armstrong 01/14/24 12:25: Social Work- ALIREZA spoke with ZUNILDA Boyle to advise of pt desire to go to a facility that allows smoking. Tamar advised that [facility] would be [facility]. ALIREZA confirmed with pt. ZO advised to complete referral. RUFUS Moctezuma Addendum entered by Gretchen Armstrong 01/14/24 12:03: Pt preference is a facility that allows smoking. Whitney, piece worker, Radha byrne, and a friend, Daisy, are in pt room. Whitney states that pt is her own guardian. Pt would like Radha byrne to be added as a contact. ALIREZA updated in system. ALIREZA will compile a list of facilities that allow smoking. RUFUS Moctezuma Original Note: Social Work- ALIREZA spoke with pt Tamar MAURO to advise that TCU referral was declined. Next [facility] is [facility]. ZO advised. ALIREZA will continue to follow. RUFUS Moctezuma
--- NOTE | 2024-01-14 10:32 | CASEMGMT ---
Addendum entered by Sofi Rodriguez 01/14/24 12:07: [facility] but she would not be able to smoke. SW followed up with pt who asked to be placed where she can smoke. [facility] to [facility] referral. Sofi Rodriguez DC Planning Asst. Original Note: Discharge Planning Referral sent to [facility]. Sofi Rodriguez DC Planning Asst.
[2024-01-14] MEDS: ARIPiprazole 5 MG Tablet PO (11:00)
[2024-01-14] MEDS: Enoxaparin 40 MG/0.4 ML Syringe SC (11:00)
[2024-01-14] MEDS: guaiFENesin 1,200 MG Tablet 1200 MG PO ×2 (11:00→21:51)
[2024-01-14] MEDS: Aspirin E.C. 81 MG Tablet 162 MG PO (11:01)
[2024-01-14] MEDS: Calcium (Elemental) 500 MG Tablet PO (11:01)
[2024-01-14] MEDS: Nystatin Powder 15gm Bottle 1 APPLIC TOPICAL ×2 (11:02→21:52)
[2024-01-14] MEDS: Menthol/Lanolin/Calamine/Znox 113 GM Tube 1 APPLIC TOPICAL ×2 (11:02→21:55)
[2024-01-14] MEDS: amLODIPine 5 MG Tablet PO (11:05)
--- NOTE | 2024-01-14 12:31 | CASEMGMT ---
Addendum entered by Sofi Rodriguez 01/14/24 13:24: [facility] has accepted patient and will submit precert. Sofi Rodriguez DC Planning Asst. Original Note: Discharge Planning Referral sent to [facility] via [facility]. Sofi Rodriguez DC Planning Asst.
--- NOTE | 2024-01-14 13:13 | PCM.PN.HOSP ---
Reason for Visit Reason for Visit: Diagnoses Hypo-osmolality and hyponatremia (01/11/24) Chronic obstructive pulmonary disease with (acute) exacerbation (01/11/24) Acute respiratory failure with hypoxia (01/11/24) Acute bronchospasm (01/11/24) Repeated falls (01/11/24) Subjective Subjective Patient with a bit of an increased cough however breathing improving Objective Data Objective Data Vital Signs: Vital Signs Temp Pulse Resp BP Pulse Ox O2 Del Method O2 Flow Rate 98.6 F 85 16 139/87 H 87 Nasal Cannula 0 01/14/24 09:26 01/14/24 10:42 01/14/24 10:42 01/14/24 09:26 01/14/24 11:33 01/14/24 09:26 01/14/24 11:33 FiO2 3 01/11/24 13:23 Oxygen Flow Rate (L/min) [ 2 AMBULATING with Oxygen #1] Oxygen Flow Rate (L/min) [At 2 REST with Oxygen] Oxygen Flow Rate (L/min) [At 0 REST on Room Air] Oxygen Flow Rate (L/min) 4 Oxygen Delivery Method Nasal Cannula Weight: 68.4 kg Body Mass Index (BMI) 28.5 Intake & Output: Intake and Output for Last 24 Hours 01/12/24 01/13/24 01/14/24 23:59 23:59 23:59 Intake Total 600 / 600 400 / 400 500 / 500 Output Total 250 / 250 Balance 350 / 350 400 / 400 500 / 500 Lab / Micro Data 01/14/24 04:45 01/14/24 04:45 Labs: Laboratory Results - last 24 hr 01/14/24 04:45: WBC 13.0 H, RBC 5.13, Hgb 14.9, Hct 47.2 H, MCV 92.0, MCH 29.0, MCHC 31.6 L, RDW Std Deviation 38.0, RDW Coeff of Kiera 11.1 L, Plt Count 177, MPV 10.9, Sodium 137, Potassium 4.1, Chloride 102, Carbon Dioxide 31.0, Anion Gap 4 L, BUN 22 H, Creatinine 0.70, Estim Creat Clear Calc 58.72, Est GFR (MDRD) Af Amer 107, Est GFR (MDRD) Non-Af 89, BUN/Creatinine Ratio 31.5 H, Glucose 111 H, Calcium 9.3 Micro: Microbiology 01/11/24 20:10 Mucosa - Nasopharyngeal Respiratory Panel (PCR) - Final 01/11/24 13:42 Mucosa - Nasopharyngeal SARS-CoV-2, Influenza & RSV (PCR) - Final Physical Exam Narrative General: Alert, oriented HEENT: Atraumatic, normocephalic Eyes: Anicteric, normal conjunctiva, extraocular movements grossly intact Neck: Supple Respiratory: Improving respiratory effort, transmitted upper airway sounds Cardiovascular: Regular rate GI: Soft, nontender, nondistended Extremities: No significant pitting Musculoskeletal: Moving all extremities Neuro: No overt focal neurological deficits Skin: No rashes appreciated Psych: Cooperative Assessment & Plan Assessment/Plan (1) Acute hypoxic respiratory failure: (2) Acute bronchospasm: (3) COPD with acute exacerbation: (4) Frequent falls: (5) Hyponatremia: PLAN: Plan #Acute hypoxic respiratory failure secondary to acute exacerbation of COPD -Patient is not oxygen dependent at baseline and required up to 6 L in the emergency department due to hypoxia -I was able to wean her down to 4 L by the time of my evaluation -Continue oxygen as needed and wean as able -Patient will need ambulatory pulse ox prior to discharge -COVID/flu/RSV is negative -Check respiratory viral panel -CTA negative for PE/dissection or infiltrate -Aggressive pulmonary toilet with scheduled and as needed DuoNebs -I-S -Acapella 10 times every 2 hours while awake -Scheduled Mucinex -Solu-Medrol 40 every 8 -Would recommend pulmonary medicine evaluation as an outpatient as patient does not follow-up with pulmonary medicine -01/11: Still on 4 L of O2 satting low 90s, continue IV steroids and scheduled nebs, will likely need to go home on O2 -01/12: No wheezes today, slowly improving, wean O2 as tolerated, continue IV steroids and nebs -01/13: Required 2 L of O2 on ambulation, cough now is productive and patient, coarse, will start antibiotics with her COPD exacerbation and continue nebs and steroids # Frequent falls -PT/OT consultation -Case management/social work consultation -01/11: Given patient's clinical status and frequent falls her major case detective would like for her to be placed prior to going home -01/12: Patient's shirring machine operator automatic would like her to be placed in rehab prior to returning home, will discuss with case management and social work tomorrow pending progress -01/13: Patient for placement, medically cleared to be placed #Essential HTN/HPL -Continue home rosuvastatin -Hold home propranolol -As needed hydralazine available for systolic blood pressure greater than 160 -Patient did get 0.2 of clonidine in the emergency department -01/11: Quite variable, will start low-dose of amlodipine however due to persistent elevation -01/12: Continues to be elevated, amlodipine to begin this morning, if remains elevated can consider increasing dose -01/13: Is improving but remains elevated, will increase amlodipine Chronic medical problems: #Bipolar disorder/anxiety/depression/learning disability/secondary parkinsonism/MCI -Continue home aripiprazole -Continue home desipramine -hold propranolol for bronchospasm -Continue home risperidone -Continue home sertraline -01/11: Seems stable at this time, continue present medications and continue Aricept, follows with neurology #Learning disability -Patient has an agency that helps with her care however she does live independently and alone -01/11: Her case management is involved with discharge planning #History of stroke -MRI from 05/31/2023 showed small acute left frontal cortical/subcortical infarct -Continue aspirin 162 mg p.o. twice daily -Continue treatment for modifiable risk factors -Follows with neurology as an outpatient #Tobacco use -Advise cessation -01/13: Patient does not want nicotine patch, did not tolerate. Added nicotine gum in the event patient would like to try this DVT prophylaxis -Subcu Lovenox 40 daily Time spent in the patient's overall evaluation,decision-making process, review of diagnostic data, adjustment of management, discussion with other providers, nursing nursing and ancillary staff involved in patient's care documentation, 37 minutes Charges/Coding Visit Charges Inpatient E&M: 91495 Subs Hosp L2
[2024-01-14] MEDS: Neomycin/Polymyxin/Dexameth 5ML OPTH.BTL 4 DRP OTIC ×3 (14:21→21:54)
[2024-01-14] MEDS: predniSONE 20 MG Tablet 60 MG PO (14:23)
[2024-01-14] MEDS: Amox/Clavulanate 875 MG Tablet PO (19:17)
[2024-01-14] MEDS: Atorvastatin Calcium 20 MG Tablet PO (21:51)
[2024-01-14] MEDS: Sertraline 100 MG Tablet 150 MG PO (21:51)
[2024-01-14] MEDS: RisperiDONE 0.5 MG Tablet PO (21:51)
[2024-01-14] MEDS: MELATONIN 10 MG TABLET 5 MG PO (21:52)
[2024-01-14] MEDS: Donepezil HCl 10 MG Tablet PO (21:52)
[2024-01-15 02:04] VITALS: BP 157/87; PULSE 94; RESP 17; TEMP 36.8; O2SAT 96
[2024-01-15 06:55] LABS: Hematocrit 46.7 % (37-47); Mean Corp Hgb Conc 32.1 g/dL (32-36); Mean Corpuscular Hgb 29.6 pg (27.0-32.0); Mean Corpuscular Volume 92.1 fL (81-99); Mean Platelet Vol. 11.2 fl (6.2-12.0); Platelet Count 168 K/mm3 (150-450); RBC Distribution Width SD 37.5 fl (35.1-43.9); Red Blood Count 5.07 M/mm3 (4.2-5.4); White Blood Count 12.6 K/mm3 (4.4-11.0)
[2024-01-15] MEDS: Ipratropium/Albuterol Sulfate 3 ML AMPUL.NEB INHALATION (06:55)
[2024-01-15 06:56] VITALS: PULSE 84; RESP 16; O2SAT 92
[2024-01-15 07:41] LABS: Anion Gap 4 (5-15); BUN 16 mg/dL (7-18); Calcium,Total 9.9 mg/dL (8.5-10.1); Chloride 104 mmol/L (98-107); Creatinine, Serum 0.64 mg/dL (0.55-1.02); EST Glomerular Filtration Rate 98 mL/min (>60); Est Glom Filt Rate - Afr Amer 118 mL/min (>60); Estimated Creatinine Clearance 58.72 ml/min; Glucose 97 mg/dL (74-106); Potassium 4.3 mmol/L (3.5-5.1); Sodium Level 138 mmol/L (136-145)
--- NOTE | 2024-01-15 09:02 | CASEMGMT ---
Addendum entered by Gretchen Armstrong 01/15/24 10:17: Social Work- ebony Boyle to update on precert and pending d/c. SW left voicemail without pt information. RUFUS Moctezuma Original Note: Social Work- received notification that [facility] has precert. Physician and pt notified. RUFUS Moctezuma
[2024-01-15 09:34] VITALS: BP 162/92; PULSE 81; RESP 18; TEMP 36.6; O2SAT 96
[2024-01-15] MEDS: Amox/Clavulanate 875 MG Tablet PO (09:39)
[2024-01-15] MEDS: amLODIPine 10 MG Tablet PO (09:42)
[2024-01-15] MEDS: predniSONE 20 MG Tablet 60 MG PO (09:42)
[2024-01-15] MEDS: Calcium (Elemental) 500 MG Tablet PO (09:42)
[2024-01-15] MEDS: Nystatin Powder 15gm Bottle 1 APPLIC TOPICAL (09:43)
[2024-01-15] MEDS: Menthol/Lanolin/Calamine/Znox 113 GM Tube 1 APPLIC TOPICAL (09:43)
[2024-01-15] MEDS: Aspirin E.C. 81 MG Tablet 162 MG PO (09:43)
[2024-01-15] MEDS: Enoxaparin 40 MG/0.4 ML Syringe SC (09:44)
[2024-01-15] MEDS: ARIPiprazole 5 MG Tablet PO (09:44)
[2024-01-15] MEDS: Neomycin/Polymyxin/Dexameth 5ML OPTH.BTL 4 DRP OTIC (09:45)
[2024-01-15] MEDS: guaiFENesin 1,200 MG Tablet 1200 MG PO (09:45)
--- NOTE | 2024-01-15 10:49 | TREXTCAR_ITS ---
Diet Diet Order/Speech Therapy: 01/11/24 19:13 Diet: Cardiac - Heart Healthy Food consistency:: Regular Liquid Consistency:: Regular/Thin Routine Orders/Code Status Suppository Type: Dulcolax 10mg Suppository Frequency: Daily PRN O2 Liters per Minute: 2 O2 Frequency: Continuous Keep PO Greater than or Equal to (%): 92 Code Status: Full Code Wound(s) R shoulder: Wound Type: Laceration Therapies Physical Therapy: Eval and Treat Occupational Therapy: Eval and Treat Problem/Diagnosis (1) Acute hypoxic respiratory failure: Status: Acute Code(s): J96.01 - Acute respiratory failure with hypoxia (2) Acute bronchospasm: Status: Acute Code(s): J98.01 - Acute bronchospasm (3) COPD with acute exacerbation: Status: Chronic Code(s): J44.1 - Chronic obstructive pulmonary disease with (acute) exacerbation (4) Frequent falls: Status: Acute Code(s): R29.6 - Repeated falls (5) Hyponatremia: Status: Acute Code(s): E87.1 - Hypo-osmolality and hyponatremia Plan #Acute hypoxic respiratory failure secondary to acute exacerbation of COPD # Frequent falls #Essential HTN/HPL #Bipolar disorder/anxiety/depression/learning disability/secondary parkinsonism/MCI #Learning disability #History of stroke #Tobacco use # Left ear infection on drops diagnosed before admission 68-year-old female history of CVA, MCI, developmental disorder, bipolar disorder, tobacco use who presented to [facility] ED 01/11/2024 with increasing shortness of breath and cough worsened over 2 days. She fell at home it was felt it was due to hypoxia. At her primary care physician's office she was 70% SpO2 on room air which improved to 96% on 3 L. CTA with no PE or infiltrate. Given long smoking history it was felt patient likely had COPD and this was an exacerbation. She was started on IV steroids and scheduled nebs, viral panel is negative, Augmentin also added given increased sputum production and increased shortness of breath and patient overall improved. During admission she did have elevated blood pressure so Norvasc was added. On day of discharge patient feels her breathing is improving, on 2 L of O2 and maintains on this during ambulation. No new or acute complaints. Discharge instructions as follows DISCHARGE INSTRUCTIONS PLEASE READ *Please take this with you to your next doctors appointment* -You will be discharged on a prednisone taper: -60 mg daily x3 days -50mg daily x3 days -40mg daily x3 days -30mg daily x3 days -20mg daily x3 days -10mg daily x3 days -You will be discharged on home oxygen, you will likely need this long-term. You may need referred to a lung doctor on an outpatient basis. A referral for pulmonology will be placed if he would like to establish with this physician -You have been started on a blood pressure medication due to persistently elevated blood pressure, amlodipine, please take this daily -You will be discharged on 4 more days of Augmentin for your COPD exacerbation -You will need to continue to use breathing treatments, ultimately you will need long-term daily inhalers and as needed inhalers -You will need to continue your eardrops 4 drops 4 times daily in your left ear for 7 days which was started on an outpatient basis -Given the significance of your breathing difficulties your propranolol has been stopped -Please call your primary care provider's office upon discharge to schedule a hospital follow up within 1 week. -For any concerning signs or symptoms please call 911 or proceed to the nearest emergency department Allergies/Procedures Done in Hospital Allergies No Known Allergies Allergy (Verified 01/11/24 13:01) Type of Care/Length of Stay Estimated LOS: Convalescent Care Less Than 30 days Type of Care Needed: Skilled Rehab Potential: Fair Prognosis: Fair Additional Orders/Day of Discharge Day of Discharge: 01/15/24 Dietary and Speech Recommendations Dietitian Recommendations/Changes: Continue with Cardiac - Heart Healthy diet at this time for PMHx reasons as well as EPHP 120mL 4x/day with medpass to help maintain oral intakes at this time. Will monitor oral intakes and modify nutrition interventions as needed. Discharge Plan Admission Admit Date/Time: 01/11/24 17:17 Primary Reason for Your Visit: SOB Attending Provider: Myesha Guo Primary Care Provider: Fracisco Fowler Chi Consulting Providers: Zo Lyons Instructions Patient Instructions: ED Fall Prevention Additional Instructions / Restrictions: DISCHARGE INSTRUCTIONS PLEASE READ *Please take this with you to your next doctors appointment* -You will be discharged on a prednisone taper: -60 mg daily x3 days -50mg daily x3 days -40mg daily x3 days -30mg daily x3 days -20mg daily x3 days -10mg daily x3 days -You will be discharged on home oxygen, you will likely need this long-term. You may need referred to a lung doctor on an outpatient basis. A referral for pulmonology will be placed if he would like to establish with this physician -You have been started on a blood pressure medication due to persistently elevated blood pressure, amlodipine, please take this daily -You will be discharged on 4 more days of Augmentin for your COPD exacerbation -You will need to continue to use breathing treatments, ultimately you will need long-term daily inhalers and as needed inhalers -You will need to continue your eardrops 4 drops 4 times daily in your left ear for 7 days which was started on an outpatient basis -Given the significance of your breathing difficulties your propranolol has been stopped -Please call your primary care provider's office upon discharge to schedule a hospital follow up within 1 week. -For any concerning signs or symptoms please call 911 or proceed to the nearest emergency department Discharge Orders/Prescriptions Prescriptions: New prednisone 20 mg Tablet See Taper PO BREAKFAST Qty: 32 0RF Taper: Prednisone Taper 60 mg WITH BREAKFAST for 3 Days and 0 Hour 50 mg WITH BREAKFAST for 3 Days and 0 Hour 40 mg WITH BREAKFAST for 3 Days and 0 Hour 30 mg WITH BREAKFAST for 3 Days and 0 Hour 20 mg WITH BREAKFAST for 3 Days and 0 Hour 10 mg WITH BREAKFAST for 3 Days and 0 Hour ipratropium-albuterol 0.5 mg-3 mg(2.5 mg base)/3 mL Solution For Nebulization 3 ml inhalation Q6H Qty: 0 0RF amlodipine 10 mg Tablet 10 mg PO DAILY Qty: 0 0RF neomycin-polymyxin B-dexameth 3.5mg/mL-10,000 unit/mL-0.1 % Drops,Suspension 4 drp otic (ear) 4X/DAY 7 Days Qty: 0 0RF amoxicillin-pot clavulanate 875-125 mg Tablet 1 tab PO BIDCM 4 Days Qty: 8 0RF guaifenesin [Mucus Relief ER] 1,200 mg Tablet Extended Release 12hr 1,200 mg PO BID 7 Days Qty: 0 0RF Continued (DME) Med Alert Button See Rx Instructions .Route .MEDSUPPLY Qty: 1 0RF Rx Instructions: As directed risperidone [Risperdal] 0.5 mg tablet 0.5 mg PO QHS Qty: 30 5RF aspirin 81 mg tablet,delayed release (DR/EC) See Rx Instructions .ROUTE .COMPLEX Qty: 60 4RF Dose Instruction: TAKE 1 TABLET BY MOUTH DAILY Rx Instructions: TAKE 2 TABLETS BY MOUTH DAILY donepezil 10 mg tablet See Rx Instructions .ROUTE .COMPLEX Qty: 30 4RF Dose Instruction: TAKE 1 TABLET BY MOUTH AT BEDTIME Rx Instructions: TAKE 1 TABLET BY MOUTH AT BEDTIME cholecalciferol (vitamin D3) 1,250 mcg (50,000 unit) capsule 1,250 mcg PO QMONTH Qty: 1 4RF desipramine 100 MG tablet 100 mg PO QHS rosuvastatin 10 MG tablet 10 mg PO QHS sertraline 100 mg tablet 150 mg PO DAILY Rx Instructions: take one & 1/2 tab at bedtime calcium carbonate 500 mg calcium (1,250 mg) tablet,chewable 1,000 mg PO DAILY aripiprazole 5 mg tablet 5 mg PO DAILY melatonin 5 mg tablet 5 mg PO QHS (DME) Rollator See Rx Instructions .Route .MEDSUPPLY Qty: 1 0RF Rx Instructions: Use as directed Discontinued propranolol 60 mg capsule,extended release 24 hr 60 mg PO QAM Qty: 30 4RF Referrals / Follow Up: Nicolas Feliz DO [Med Staff - Active Staff] - (He would benefit from following up with pulmonology upon discharge to establish care) Fracisco Fowler Chi, MD [Primary Care Provider] - Within 1 Week Disposition Disposition (needs filled in before D/C Order can be placed): Nursing Home Facility
--- NOTE | 2024-01-15 10:55 | PCM.DC.SUM ---
Providers Date of Admission: 01/11/24 Date of Discharge: 01/15/24 Primary Care Physician: Dr. Fracisco Fowler MD Reason For Visit: ACUTE HYPOXIC RESPIRATORY FAILURE Diagnosis Discharge Diagnosis (1) Acute hypoxic respiratory failure: Status: Acute Code(s): J96.01 - Acute respiratory failure with hypoxia (2) Acute bronchospasm: Status: Acute Code(s): J98.01 - Acute bronchospasm (3) COPD with acute exacerbation: Status: Chronic Code(s): J44.1 - Chronic obstructive pulmonary disease with (acute) exacerbation (4) Frequent falls: Status: Acute Code(s): R29.6 - Repeated falls (5) Hyponatremia: Status: Acute Code(s): E87.1 - Hypo-osmolality and hyponatremia Plan #Acute hypoxic respiratory failure secondary to acute exacerbation of COPD # Frequent falls #Essential HTN/HPL #Bipolar disorder/anxiety/depression/learning disability/secondary parkinsonism/MCI #Learning disability #History of stroke #Tobacco use # Left ear infection on drops diagnosed before admission Medications at Discharge Home Medications desipramine 100 mg tablet 100 mg PO QHS 02/13/17 rosuvastatin 10 mg tablet 10 mg PO QHS CHOLESTEROL LOWERING 02/13/17 sertraline 100 mg tablet 150 mg PO DAILY 10/30/22 Med Alert Button #1 ea 05/02/23 Rollator #1 ea 05/07/23 aspirin 81 mg tablet,delayed release See Rx Instructions .Route .COMPLEX #60 tabs 08/29/23 cholecalciferol (vitamin D3) 1,250 mcg (50,000 unit) capsule 1,250 mcg PO QMONTH #1 cap 08/29/23 donepezil 10 mg tablet See Rx Instructions .Route .COMPLEX #30 tabs 08/29/23 risperidone 0.5 mg tablet (Risperdal) 0.5 mg PO QHS #30 tabs 08/29/23 aripiprazole 5 mg tablet 5 mg PO DAILY 01/11/24 calcium carbonate 1,000 mg PO DAILY 01/11/24 melatonin 5 mg tablet 5 mg PO QHS 01/11/24 amlodipine 10 mg tablet 10 mg PO DAILY #0 tabs 01/15/24 amoxicillin 875 mg-potassium clavulanate 125 mg tablet 1 tab PO BIDCM 4 days #8 tabs 01/15/24 guaifenesin 1,200 mg tablet, extended release 12 hr (Mucus Relief ER) 1,200 mg PO BID 7 days #0 tabs 01/15/24 ipratropium 0.5 mg-albuterol 3 mg (2.5 mg base)/3 mL nebulization soln 3 ml inhalation Q6H #0 mL 01/15/24 lcwmsdzl-elapyhnit-wwveibrr 3.5 mg/mL-10,000 unit/mL-0.1% eye drops 4 drp otic (ear) 4X/DAY 7 days #0 mL 01/15/24 prednisone 20 mg tablet See Taper PO BREAKFAST #32 tabs 01/15/24 Hospital Course Summary of Care Provided Minutes Spent on Discharge: 31 Hospital Course: 68-year-old female history of CVA, MCI, developmental disorder, bipolar disorder, tobacco use who presented to [facility] ED 01/11/2024 with increasing shortness of breath and cough worsened over 2 days. She fell at home it was felt it was due to hypoxia. At her primary care physician's office she was 70% SpO2 on room air which improved to 96% on 3 L. CTA with no PE or infiltrate. Given long smoking history it was felt patient likely had COPD and this was an exacerbation. She was started on IV steroids and scheduled nebs, viral panel is negative, Augmentin also added given increased sputum production and increased shortness of breath and patient overall improved. During admission she did have elevated blood pressure so Norvasc was added. On day of discharge patient feels her breathing is improving, on 2 L of O2 and maintains on this during ambulation. No new or acute complaints. Discharge instructions as follows DISCHARGE INSTRUCTIONS PLEASE READ *Please take this with you to your next doctors appointment* -You will be discharged on a prednisone taper: -60 mg daily x3 days -50mg daily x3 days -40mg daily x3 days -30mg daily x3 days -20mg daily x3 days -10mg daily x3 days -You will be discharged on home oxygen, you will likely need this long-term. You may need referred to a lung doctor on an outpatient basis. A referral for pulmonology will be placed if he would like to establish with this physician -You have been started on a blood pressure medication due to persistently elevated blood pressure, amlodipine, please take this daily -You will be discharged on 4 more days of Augmentin for your COPD exacerbation -You will need to continue to use breathing treatments, ultimately you will need long-term daily inhalers and as needed inhalers -You will need to continue your eardrops 4 drops 4 times daily in your left ear for 7 days which was started on an outpatient basis -Given the significance of your breathing difficulties your propranolol has been stopped -Please call your primary care provider's office upon discharge to schedule a hospital follow up within 1 week. -For any concerning signs or symptoms please call 911 or proceed to the nearest emergency department Physical Exam Narrative General: Alert, oriented HEENT: Atraumatic, normocephalic Eyes: Anicteric, normal conjunctiva, extraocular movements grossly intact Neck: Supple Respiratory: No significant increase in respiratory effort, somewhat diminished today but no wheezes or rhonchi, no transmitted upper airway sounds today Cardiovascular: Regular rate GI: Soft, nontender, nondistended Extremities: No significant pitting Musculoskeletal: Moving all extremities Neuro: No overt focal neurological deficits Skin: No rashes appreciated Psych: Cooperative Weight / BMI Weight Weight: 68.4 kg Body Mass Index (BMI) 28.5 ABG / Lab / Microbiology Data 01/15/24 05:53 01/15/24 05:53 Laboratory: Laboratory Results - last 24 hr 01/15/24 05:53: WBC 12.6 H, RBC 5.07, Hgb 15.0, Hct 46.7, MCV 92.1, MCH 29.6, MCHC 32.1, RDW Std Deviation 37.5, RDW Coeff of Kiera 11.0 L, Plt Count 168, MPV 11.2, Sodium 138, Potassium 4.3, Chloride 104, Carbon Dioxide 30.0, Anion Gap 4 L, BUN 16, Creatinine 0.64, Estim Creat Clear Calc 58.72, Est GFR (MDRD) Af Amer 118, Est GFR (MDRD) Non-Af 98, BUN/Creatinine Ratio 25.0 H, Glucose 97, Calcium 9.9 Microbiology: Microbiology 01/11/24 20:10 Mucosa - Nasopharyngeal Respiratory Panel (PCR) - Final 01/11/24 13:42 Mucosa - Nasopharyngeal SARS-CoV-2, Influenza & RSV (PCR) - Final D/C Instructions Discharge Diet: No restrictions Meaningful Use Info Meaningful Use Meaningful Use Diagnoses (Choose all that apply): None applicable Ischemic Stroke Statin Dosing Therapy Reference: STATIN DOSE THERAPY REFERENCE: * Patients > 75 years receive moderate or high dose statin therapy. * Patients 75 years or YOUNGER should receive HIGH intensity statin dose unless contraindicated. You will be required to document reason for non-treatment if statin daily dose does not meet guidelines. HIGH DOSE STATIN THERAPY DAILY Atorvastatin > than or = to 40 mg Rosuvastatin > than or = to 20 mg Amlodipine + Atorvastatin > than or = to 2.5/40 mg Ezetimibe + Simvastatin 10/80 mg Simvastatin 80mg Discharge Plan Admission Admit Date/Time: 01/11/24 17:17 Primary Reason for Your Visit: SOB Attending Provider: Myesha Guo Primary Care Provider: Fracisco Fowler [employer] Providers: Zo Lyons Instructions Patient Instructions: ED Fall Prevention Additional Instructions / Restrictions: DISCHARGE INSTRUCTIONS PLEASE READ *Please take this with you to your next doctors appointment* -You will be discharged on a prednisone taper: -60 mg daily x3 days -50mg daily x3 days -40mg daily x3 days -30mg daily x3 days -20mg daily x3 days -10mg daily x3 days -You will be discharged on home oxygen, you will likely need this long-term. You may need referred to a lung doctor on an outpatient basis. A referral for pulmonology will be placed if he would like to establish with this physician -You have been started on a blood pressure medication due to persistently elevated blood pressure, amlodipine, please take this daily -You will be discharged on 4 more days of Augmentin for your COPD exacerbation -You will need to continue to use breathing treatments, ultimately you will need long-term daily inhalers and as needed inhalers -You will need to continue your eardrops 4 drops 4 times daily in your left ear for 7 days which was started on an outpatient basis -Given the significance of your breathing difficulties your propranolol has been stopped -Please call your primary care provider's office upon discharge to schedule a hospital follow up within 1 week. -For any concerning signs or symptoms please call 911 or proceed to the nearest emergency department Discharge Orders/Prescriptions Prescriptions: New prednisone 20 mg Tablet See Taper PO BREAKFAST Qty: 32 0RF Taper: Prednisone Taper 60 mg WITH BREAKFAST for 3 Days and 0 Hour 50 mg WITH BREAKFAST for 3 Days and 0 Hour 40 mg WITH BREAKFAST for 3 Days and 0 Hour 30 mg WITH BREAKFAST for 3 Days and 0 Hour 20 mg WITH BREAKFAST for 3 Days and 0 Hour 10 mg WITH BREAKFAST for 3 Days and 0 Hour ipratropium-albuterol 0.5 mg-3 mg(2.5 mg base)/3 mL Solution For Nebulization 3 ml inhalation Q6H Qty: 0 0RF amlodipine 10 mg Tablet 10 mg PO DAILY Qty: 0 0RF neomycin-polymyxin B-dexameth 3.5mg/mL-10,000 unit/mL-0.1 % Drops,Suspension 4 drp otic (ear) 4X/DAY 7 Days Qty: 0 0RF amoxicillin-pot clavulanate 875-125 mg Tablet 1 tab PO BIDCM 4 Days Qty: 8 0RF guaifenesin [Mucus Relief ER] 1,200 mg Tablet Extended Release 12hr 1,200 mg PO BID 7 Days Qty: 0 0RF Continued (DME) Med Alert Button See Rx Instructions .Route .MEDSUPPLY Qty: 1 0RF Rx Instructions: As directed risperidone [Risperdal] 0.5 mg tablet 0.5 mg PO QHS Qty: 30 5RF aspirin 81 mg tablet,delayed release (DR/EC) See Rx Instructions .ROUTE .COMPLEX Qty: 60 4RF Dose Instruction: TAKE 1 TABLET BY MOUTH DAILY Rx Instructions: TAKE 2 TABLETS BY MOUTH DAILY donepezil 10 mg tablet See Rx Instructions .ROUTE .COMPLEX Qty: 30 4RF Dose Instruction: TAKE 1 TABLET BY MOUTH AT BEDTIME Rx Instructions: TAKE 1 TABLET BY MOUTH AT BEDTIME cholecalciferol (vitamin D3) 1,250 mcg (50,000 unit) capsule 1,250 mcg PO QMONTH Qty: 1 4RF desipramine 100 MG tablet 100 mg PO QHS rosuvastatin 10 MG tablet 10 mg PO QHS sertraline 100 mg tablet 150 mg PO DAILY Rx Instructions: take one & 1/2 tab at bedtime calcium carbonate 500 mg calcium (1,250 mg) tablet,chewable 1,000 mg PO DAILY aripiprazole 5 mg tablet 5 mg PO DAILY melatonin 5 mg tablet 5 mg PO QHS (DME) Rollator See Rx Instructions .Route .MEDSUPPLY Qty: 1 0RF Rx Instructions: Use as directed Discontinued propranolol 60 mg capsule,extended release 24 hr 60 mg PO QAM Qty: 30 4RF Referrals / Follow Up: Brown,Nicolas, DO [Med Staff - Active Staff] - (He would benefit from following up with pulmonology upon discharge to establish care) Fracisco Fowler Chi, MD [Primary Care Provider] - Within 1 Week Disposition Disposition (needs filled in before D/C Order can be placed): Alf Facility Charges/Coding Visit Charges Inpatient E&M: 01214 Disch Hosp >30min
--- NOTE | 2024-01-15 11:13 | CASEMGMT ---
Social Work Precert has been obtained.? Physician updated and pt is ready for discharge today.? 7000 convalescent form completed in [facility].? SW met with pt and they are agreeable to discharge plan as stated above.? DCA advised d/c can be completed. Disposition:?[facility] ??, skilled level of care under convalescent stay. RUFUS Moctezuma
--- NOTE | 2024-01-15 11:23 | CASEMGMT ---
Discharge Planning Discharge orders, signed med list, and transport time sent to [facility] via [facility]. Physicians will transport patient by wheelchair at noon. Nursing, SW, patient, and her case advocate (Tamar Feng) updated. Sofi Rodriguez DC Planning Asst.
[2024-01-15 11:24] VITALS: BP 160/105; PULSE 95; RESP 18; TEMP 37.2; O2SAT 95
--- NOTE | 2024-01-15 12:34 | PHA.DC.MR.R ---
Pharmacy [place] Med Reconciliation Pharmacy Service has performed discharge medication reconciliation for this patient. The patient's discharge medication list was reviewed for discrepancies and discrepancies were resolved. Medications at Discharge Home Medications desipramine 100 mg tablet 100 mg PO QHS 02/13/17 rosuvastatin 10 mg tablet 10 mg PO QHS CHOLESTEROL LOWERING 02/13/17 sertraline 100 mg tablet 150 mg PO DAILY 10/30/22 Med Alert Button #1 ea 05/02/23 Rollator #1 ea 05/07/23 aspirin 81 mg tablet,delayed release See Rx Instructions .Route .COMPLEX #60 tabs 08/29/23 cholecalciferol (vitamin D3) 1,250 mcg (50,000 unit) capsule 1,250 mcg PO QMONTH #1 cap 08/29/23 donepezil 10 mg tablet See Rx Instructions .Route .COMPLEX #30 tabs 08/29/23 risperidone 0.5 mg tablet (Risperdal) 0.5 mg PO QHS #30 tabs 08/29/23 aripiprazole 5 mg tablet 5 mg PO DAILY 01/11/24 calcium carbonate 1,000 mg PO DAILY 01/11/24 melatonin 5 mg tablet 5 mg PO QHS 01/11/24 amlodipine 10 mg tablet 10 mg PO DAILY #0 tabs 01/15/24 amoxicillin 875 mg-potassium clavulanate 125 mg tablet 1 tab PO BIDCM 4 days #8 tabs 01/15/24 guaifenesin 1,200 mg tablet, extended release 12 hr (Mucus Relief ER) 1,200 mg PO BID 7 days #0 tabs 01/15/24 ipratropium 0.5 mg-albuterol 3 mg (2.5 mg base)/3 mL nebulization soln 3 ml inhalation Q6H #0 mL 01/15/24 hesradju-pimubecvt-zotpmbmr 3.5 mg/mL-10,000 unit/mL-0.1% eye drops 4 drp otic (ear) 4X/DAY 7 days #0 mL 01/15/24 prednisone 20 mg tablet See Taper PO BREAKFAST #32 tabs 01/15/24
== END 2024-01-15 12:10 | disposition skilled nursing facility (03) | DRG 189 ==
LOC: ED 16:26 → MS3 17:45
PROVIDERS: Admitting Provider Internal Medicine; Emergency Provider Emergency Medicine; PCP Family Medicine Geriatric Medicine; Visit Provider Internal Medicine
DX: J96.01 Acute respiratory failure with hypoxia (principal); G21.9 Secondary parkinsonism, unspecified; J44.1 Chronic obstructive pulmonary disease with (acute) exacerbation; F31.9 Bipolar disorder, unspecified; I10 Essential (primary) hypertension; F17.210 Nicotine dependence, cigarettes, uncomplicated; F41.9 Anxiety disorder, unspecified; E78.5 Hyperlipidemia, unspecified; G31.84 Mild cognitive impairment of uncertain or unknown etiology; E55.9 Vitamin D deficiency, unspecified; D75.1 Secondary polycythemia; F81.9 Developmental disorder of scholastic skills, unspecified; R29.6 Repeated falls; R29.898 Other symptoms and signs involving the musculoskeletal system; R53.83 Other fatigue; Z20.828 Contact with and (suspected) exposure to other viral communicable diseases; Z79.82 Long term (current) use of aspirin; Z79.899 Other long term (current) drug therapy; Z86.73 Personal history of transient ischemic attack (TIA), and cerebral infarction without residual deficits
CPT/HCPCS: 36415; 70450; 71046; 71275; 80048; 80053; 81001; 82962; 83605; 83735; 84100; 84443; 85025; 85027; 87631; 87633; 93005; 94640; 94668; 94762; 97110; 97162; 97166; 97530; 97535; 97802; 99252; 99285; Q9967; A4216; G0463

== ENCOUNTER → 2024-01-11 | Outpatient (CLI) | payer MEDICARE, MEDICAID, SELFPAY ==
--- NOTE | 2024-01-11 11:54 | CT_ITS ---
STUDY: CT BRAIN WITHOUT CONTRAST REASON FOR EXAM: Female, 68 years old. WEAKNESS OF BOTH LEGS RADIATION DOSAGE (If Supplied By Facility): CTDIvol = ( 44.99 ) mGy, DLP = ( 846.73 ) mGycm TECHNIQUE: Transaxial CT imaging of the brain was performed without administration of intravenous contrast material. Individualized dose optimization techniques were used for this CT. COMPARISON: Comparison is made with prior study dated December 15, 2022. FINDINGS: Normal soft tissue structures. Normal calvarium. There is mild cerebral atrophy with widening of the extra-axial spaces and ventricular dilatation. There are areas of decreased attenuation within the white matter tracts of the supratentorial brain, consistent with microvascular disease changes. Normal basal ganglia and thalami. Normal brainstem. Normal cerebellum. There is no intracranial hemorrhage. There are no findings of an acute ischemic infarction. Normal visualized paranasal sinuses. CT/Brain/Head without Contrast IMPRESSION: Chronic involutional changes of the brain. Electronically Signed: Hemal Hart MD at 12:35 EDT ,
--- NOTE | 2024-01-11 12:05 | RAD_ITS ---
STUDY: X-RAY CHEST REASON FOR EXAM: Female, 68 years old. WHEEZING TECHNIQUE: PA and lateral views of the chest. COMPARISON: Comparison is made with prior study dated December 10, 2023. FINDINGS: Hyperinflation. Scattered calcified granulomas. Stable mild linear scarring at the lung bases. There is no demonstrated pleural abnormality. Normal size heart. Normal mediastinum and murray. Normal visualized pulmonary arteries. There is atherosclerotic calcification of the aortic arch with tortuosity. There are diffuse degenerative changes of the visualized thoracic spine. Increased kyphosis Normal visualized ribs, clavicles, and shoulders. There is no demonstrated abnormality of the visualized soft tissue structures of the upper abdomen. RAD/Chest PA and Lateral IMPRESSION: Stable examination. Mild scarring at the lung bases. Electronically Signed: Hemal Hart MD at 12:39 EDT ,
[2024-01-11 12:56] LABS: Absolute Lymphocyte Count 1.01 X10^3/uL (0.83-4.51); Absolute Neutrophil Count 5.2 X10^3/uL (2.0-7.7); Basophil# 0.04 X10^3/uL; Basophil% 0.5 % (0-1); Eosinophil# 0.04 X10^3/uL; Eosinophils% 0.5 % (0-5); Hematocrit 49.6 % (37-47); Hemoglobin 15.5 g/dL (12.0-15.0); Lymphocyte # 1.01 X10^3/ul (0.83-4.51); Lymphocyte % 13.4 % (19-41); Mean Corp Hgb Conc 31.3 g/dL (32-36); Mean Corpuscular Hgb 28.5 pg (27.0-32.0); Mean Corpuscular Volume 91.3 fL (81-99); Mean Platelet Vol. 11.3 fl (6.2-12.0); Monocyte# 1.22 X10^3/uL; Monocyte% 16.2 % (0-10); NRBC Flagged by Analyzer 0 % (0-5); Neutrophil # 5.19 X10^3/uL (2.7-7.7); Platelet Count 153 K/mm3 (150-450); RBC Distribution Width CV 11.1 % (11.6-14.6); RBC Distribution Width SD 37.6 fl (35.1-43.9); Red Blood Count 5.43 M/mm3 (4.2-5.4); White Blood Count 7.5 K/mm3 (4.4-11.0)
[2024-01-11 14:28] LABS: ALB/GLOB Ratio 0.8 RATIO (0.9-2.4); AST(SGOT) 29 U/L (15-37); Alanine Aminotransfer ALT/SGPT 27 U/L (13-56); Albumin, Serum 3.4 g/dL (3.2-5.0); Alkaline Phosphatase 134 U/L (45-117); Anion Gap 4 (5-15); BUN 19 mg/dL (7-18); BUN/Creat Ratio 20.5 RATIO (10-20); Calcium,Total 9.7 mg/dL (8.5-10.1); Chloride 99 mmol/L (98-107); Creatinine, Serum 0.93 mg/dL (0.55-1.02); EST Glomerular Filtration Rate 64 mL/min (>60); Est Glom Filt Rate - Afr Amer 77 mL/min (>60); Globulin 4.5 g/dL (2.2-4.2); Glucose 85 mg/dL (74-106); Potassium 4.5 mmol/L (3.5-5.1); Protein, Total 7.9 g/dL (6.4-8.2); Sodium Level 134 mmol/L (136-145)
== END | disposition home or self-care (01) ==
PROVIDERS: PCP Family Medicine Geriatric Medicine; Referring Provider Family Medicine Geriatric Medicine; Visit Provider Family Medicine Geriatric Medicine
DX: R06.2 Wheezing (principal); R29.898 Other symptoms and signs involving the musculoskeletal system; R53.83 Other fatigue; N39.0 Urinary tract infection, site not specified; E78.5 Hyperlipidemia, unspecified
CPT/HCPCS: 36415; 70450; 71046; 80053; 84443; 85025

== ENCOUNTER → 2024-02-04 | Outpatient (CLI) | payer MEDICARE, MEDICAID, SELFPAY ==
[2024-02-04 10:28] LABS: Absolute Lymphocyte Count 1.32 X10^3/uL (0.83-4.51); Absolute Neutrophil Count 8.6 X10^3/uL (2.0-7.7); Basophil# 0.03 X10^3/uL; Basophil% 0.3 % (0-1); Eosinophil# 0.23 X10^3/uL; Hematocrit 45.6 % (37-47); Hemoglobin 13.8 g/dL (12.0-15.0); Lymphocyte # 1.32 X10^3/ul (0.83-4.51); Lymphocyte % 11.7 % (19-41); Mean Corp Hgb Conc 30.3 g/dL (32-36); Mean Corpuscular Hgb 28.6 pg (27.0-32.0); Mean Corpuscular Volume 94.6 fL (81-99); Mean Platelet Vol. 10.8 fl (6.2-12.0); Monocyte# 0.87 X10^3/uL; Monocyte% 7.7 % (0-10); NRBC Flagged by Analyzer 0 % (0-5); Neutrophil # 8.64 X10^3/uL (2.7-7.7); Neutrophil % 76.5 % (47-70); Platelet Count 152 K/mm3 (150-450); RBC Distribution Width CV 11.4 % (11.6-14.6); RBC Distribution Width SD 39.3 fl (35.1-43.9); Red Blood Count 4.82 M/mm3 (4.2-5.4); White Blood Count 11.3 K/mm3 (4.4-11.0)
[2024-02-04 11:09] LABS: ALB/GLOB Ratio 0.7 RATIO (0.9-2.4); AST(SGOT) 15 U/L (15-37); Alanine Aminotransfer ALT/SGPT 22 U/L (13-56); Albumin, Serum 2.6 g/dL (3.2-5.0); Alkaline Phosphatase 128 U/L (45-117); Anion Gap 7 (5-15); BUN 17 mg/dL (7-18); BUN/Creat Ratio 22.8 RATIO (10-20); Calcium,Total 9.2 mg/dL (8.5-10.1); Chloride 103 mmol/L (98-107); Cholesterol 150 mg/dL (200); Creatinine, Serum 0.74 mg/dL (0.55-1.02); EST Glomerular Filtration Rate 82 mL/min (>60); Est Glom Filt Rate - Afr Amer 99 mL/min (>60); Globulin 3.8 g/dL (2.2-4.2); Glucose 146 mg/dL (74-106); High Density Lipoprotein 72 mg/dL; Potassium 3.6 mmol/L (3.5-5.1); Protein, Total 6.4 g/dL (6.4-8.2); Sodium Level 141 mmol/L (136-145); Thyroid Stim Hormone (TSH) 0.705 uIU/mL (0.358-3.740); Triglycerides 97 mg/dL; Very Low Density Lipoprotein 19 mg/dL (5-40)
[2024-02-04 13:16] LABS: Hemoglobin A1c 5.8 % (3.8-5.6)
[2024-02-04 15:18] LABS: Vitamin D,25 Hydroxy 57.5 ng/mL
== END | disposition home or self-care (01) ==
LOC: POLAB3 10:07
PROVIDERS: PCP Family Medicine Geriatric Medicine; Visit Provider Family Medicine Geriatric Medicine
DX: I10 Essential (primary) hypertension (principal); E78.5 Hyperlipidemia, unspecified; E55.9 Vitamin D deficiency, unspecified; R53.83 Other fatigue; R73.9 Hyperglycemia, unspecified
CPT/HCPCS: 36415; 80053; 80061; 82306; 83036; 84443; 85025

== ENCOUNTER 2024-03-02 13:09 | Emergency (ER) | payer MEDICARE, MEDICAID, SELFPAY ==
[2024-03-02 13:09] VITALS: BP 123/83; PULSE 87; RESP 18; TEMP 37.2; O2SAT 97
[2024-03-02 13:33] VITALS: BMI 30.9
[2024-03-02 13:37] LABS: Absolute Lymphocyte Count 2.11 X10^3/uL (0.83-4.51); Absolute Neutrophil Count 6.2 X10^3/uL (2.0-7.7); Basophil# 0.04 X10^3/uL; Basophil% 0.4 % (0-1); Eosinophil# 0.17 X10^3/uL; Eosinophils% 1.8 % (0-5); Hematocrit 46.4 % (37-47); Hemoglobin 14.5 g/dL (12.0-15.0); Lymphocyte # 2.11 X10^3/ul (0.83-4.51); Lymphocyte % 21.9 % (19-41); Mean Corp Hgb Conc 31.3 g/dL (32-36); Mean Corpuscular Hgb 28.8 pg (27.0-32.0); Mean Corpuscular Volume 92.2 fL (81-99); Monocyte# 1.07 X10^3/uL; Monocyte% 11.1 % (0-10); NRBC Flagged by Analyzer 0 % (0-5); Neutrophil # 6.21 X10^3/uL (2.7-7.7); Neutrophil % 64.6 % (47-70); Platelet Count 208 K/mm3 (150-450); RBC Distribution Width CV 11.5 % (11.6-14.6); RBC Distribution Width SD 38.8 fl (35.1-43.9); Red Blood Count 5.03 M/mm3 (4.2-5.4); White Blood Count 9.6 K/mm3 (4.4-11.0)
--- NOTE | 2024-03-02 13:52 | EX.ED.DYSGE1 ---
HPI <CECELIA Thayer - Last Filed: 03/02/24 16:05> History of Present Illness Chief Complaint: Complaint Narrative Narrative: Patient presenting today after being sent over from urgent care due to a urinary culture that came back positive for Klebsiella pneumonia. She was told that she would likely need IV antibiotics. She has history of CVA, cognitive impairment, secondary parkinsonism, hypertension (not on any antihypertensive meds), depression, and vitamin D deficiency. She is here with her caregiver who reports that she noticed green-tinged urine a few days ago, she took her to the urgent care and they performed a urinary culture. They also tested her for BV and trichomonas which came back negative. She denies any concerns for STDs. Patient otherwise has no acute complaints, she denies urinary symptoms, she is requesting to go home, she denies fevers, chills, abdominal pain, nausea, and vomiting. [facility] <CECELIA Thayer - Last Filed: 03/02/24 16:05> [facility] Medical History Erythrocytosis Cerebrovascular disease MCI (mild cognitive impairment) History of UTI Chronic bronchitis Developmental disorder Home Medications ?Medication ?Instructions ?Recorded ?Last Taken ?Type desipramine 100 mg tablet 100 mg PO QHS 02/13/17 01/10/24 History rosuvastatin 10 mg tablet 10 mg PO QHS CHOLESTEROL LOWERING 02/13/17 01/10/24 History sertraline 100 mg tablet 150 mg PO DAILY 10/30/22 01/10/24 History Med Alert Button #1 ea 05/02/23 Unknown Rx Rollator #1 ea 05/07/23 Unknown Rx aspirin 81 mg tablet,delayed See Rx Instructions .Route 08/29/23 01/11/24 Rx release .COMPLEX #60 tabs cholecalciferol (vitamin D3) 1,250 1,250 mcg PO QMONTH #1 cap 08/29/23 Unknown Rx mcg (50,000 unit) capsule donepezil 10 mg tablet See Rx Instructions .Route 08/29/23 01/10/24 Rx .COMPLEX #30 tabs aripiprazole 5 mg tablet 5 mg PO DAILY 01/11/24 01/11/24 History calcium carbonate 1,000 mg PO DAILY 01/11/24 01/11/24 History melatonin 5 mg tablet 5 mg PO QHS 01/11/24 01/10/24 History amlodipine 10 mg tablet 10 mg PO DAILY #0 tabs 01/15/24 Unknown Rx amoxicillin 875 mg-potassium 1 tab PO BIDCM 4 days #8 tabs 01/15/24 Unknown Rx clavulanate 125 mg tablet guaifenesin 1,200 mg tablet, 1,200 mg PO BID 7 days #0 tabs 01/15/24 Unknown Rx extended release 12 hr (Mucus Relief ER) ipratropium 0.5 mg-albuterol 3 mg 3 ml inhalation Q6H #0 mL 01/15/24 Unknown Rx (2.5 mg base)/3 mL nebulization soln [id number] 3.5 4 drp otic (ear) 4X/DAY 7 days #0 01/15/24 Unknown Rx mg/mL-10,000 unit/mL-0.1% eye drops mL prednisone 20 mg tablet See Taper PO BREAKFAST #32 tabs 01/15/24 Unknown Rx risperidone 0.5 mg tablet 0.5 mg PO QHS #30 tabs 02/19/24 Unknown Rx (Risperdal) cefdinir 300 mg capsule 300 mg PO BID #10 caps 03/02/24 Unknown Rx Allergy/AdvReac Type Severity Reaction Status Date / Time No Known Allergies Allergy Verified 01/11/24 13:01 Social History household members: none housing: apartment Smoking Status: Current every day smoker tobacco type: cigarettes Tobacco: How many years used: 50 Electronic Cigarette Use: not used second hand exposure: Yes alcohol intake: never substance use type: does not use seatbelt use: always ROS <CECELIA Thayer - Last Filed: 03/02/24 16:05> ROS ED Constitutional Constitutional ED: Denies chills or fever(s) Cardiovascular Cardiovascular: Denies chest pain Respiratory/Chest Respiratory/Chest: Denies dyspnea Gastrointestinal Gastrointestinal: Denies abdominal pain, nausea or vomiting Genitourinary Genitourinary ED: Denies dysuria, hematuria or urinary urgency Musculoskeletal Musculoskeletal: Denies back pain Integumentary Denies rash Neurologic Neurologic: Denies weakness EXAM <CECELIA Thayer - Last Filed: 03/02/24 16:05> Physical Exam Const Vital Signs: 03/02/24 13:09 03/02/24 14:13 03/02/24 15:00 Temperature 98.9 F 97.6 F L 98.0 F Temperature Source Temporal Temporal Oral Pulse Rate 87 83 79 Respiratory Rate 18 16 16 Blood Pressure 123/83 H 153/83 H 140/93 H Blood Pressure Mean 96 106 108 Pulse Ox 97 96 97 Oxygen Delivery Method Nasal Cannula Nasal Cannula Nasal Cannula Oxygen Flow Rate (L/min) 2 2 03/02/24 15:09 03/02/24 16:19 Temperature 97.7 F L Temperature Source Pulse Rate 79 83 Respiratory Rate 16 16 Blood Pressure 140/93 H 142/89 H Blood Pressure Mean 108 106 Pulse Ox 97 98 Oxygen Delivery Method Nasal Cannula Oxygen Flow Rate (L/min) 2 Positive well nourished, well developed and no apparent distress General Appearance ED: well developed HEENT Reports normocephalic and head/scalp atraumatic Mouth ED: Yes moist mucous membranes normal Eyes PERRL and EOMs intact bilaterally Neck full ROM and supple Chest Wall inspection of chest normal Resp normal respiratory effort and clear to auscultation bilaterally Cardio regular rate and regular rhythm GI soft to palpation, non-tender, non-distended and no masses Back/Spine no CVA tenderness, normal ROM and normal to inspection Extremity normal to inspection and full ROM Neuro oriented x3, CN's II-XII intact bilaterally, moves all extremities, no focal motor deficits and no sensory deficits noted Sensorium / Orientation: awake and alert Psych mental status grossly normal and thought process normal Skin no rashes or lesions noted and no wounds <Stevan Merino MD - Last Filed: 03/02/24 19:25> Physical Exam Const Vital Signs: 03/02/24 13:09 03/02/24 14:13 03/02/24 15:00 Temperature 98.9 F 97.6 F L 98.0 F Temperature Source Temporal Temporal Oral Pulse Rate 87 83 79 Respiratory Rate 18 16 16 Blood Pressure 123/83 H 153/83 H 140/93 H Blood Pressure Mean 96 106 108 Pulse Ox 97 96 97 Oxygen Delivery Method Nasal Cannula Nasal Cannula Nasal Cannula Oxygen Flow Rate (L/min) 2 2 03/02/24 15:09 03/02/24 16:19 Temperature 97.7 F L Temperature Source Pulse Rate 79 83 Respiratory Rate 16 16 Blood Pressure 140/93 H 142/89 H Blood Pressure Mean 108 106 Pulse Ox 97 98 Oxygen Delivery Method Nasal Cannula Oxygen Flow Rate (L/min) 2 [facility] <CECELIA Thayer - Last Filed: 03/02/24 16:05> [facility] Narrative Medical decision making narrative: Patient presenting today after having a urinary culture come back positive today for Klebsiella pneumoniae. She was called from the urgent care and urged to come into the ED for IV antibiotics. Patient does not have any acute complaints. She has a history of mild cognitive impairment and does have a caregiver who reports that she noticed green-tinged urine a few days ago when bathing her. Patient is well-appearing and in no acute distress, her vitals are unremarkable. Patient has been given a dose of Zosyn here, labs will be obtained. I did speak with the pharmacist he reports that cefdinir would provide adequate coverage for Klebsiella pneumoniae. CBC is unremarkable, her BMP shows a BUN of 23, otherwise is unremarkable. UA shows 25 leukocytes, 0 bacteria, 0 WBCs. She will be given a course of cefdinir for home, urinary culture has been obtained here. I did encourage that she follow-up with her PCP, return instructions were discussed and patient discharged home in stable condition. Lab Data Attestation: I reviewed the patient's lab results. Labs: Laboratory Results - last 24 hr 03/02/24 03/02/24 13:30 14:26 WBC 9.6 RBC 5.03 Hgb 14.5 Hct 46.4 MCV 92.2 MCH 28.8 MCHC 31.3 L RDW Std Deviation 38.8 RDW Coeff of [place] 11.5 L Plt Count 208 MPV 11.0 Immature Gran % (Auto) 0.200 Neut % (Auto) 64.6 Lymph % (Auto) 21.9 [place] % (Auto) 11.1 H Eos % (Auto) 1.8 Baso % (Auto) 0.4 Absolute Neuts (auto) 6.2 Absolute Lymphs (auto) 2.11 Nucleated RBC % 0 Sodium 140 Potassium 3.9 Chloride 104 Carbon Dioxide 32.0 Anion Gap 5 BUN 23 H Creatinine 0.80 Estim Creat Clear Calc 58.65 Est GFR (MDRD) Af Amer 92 Est GFR (MDRD) Non-Af 76 BUN/Creatinine Ratio 28.9 H Glucose 123 H Calcium 9.6 Urine Color Yellow Urine Clarity Clear Urine pH 6.0 Ur Specific [place] 1.020 Urine Protein Negative Urine Glucose (UA) Normal Urine Ketones Negative Urine Occult Blood Negative Urine Nitrite Negative Urine Bilirubin Negative Urine Urobilinogen Normal Ur Leukocyte Esterase 25 H Urine RBC 0-5 SEEN Urine WBC 0-5 SEEN Ur Squamous Epith Cells 0-5 SEEN Urine Bacteria 0 SEEN Urine Mucus 0 SEEN <Stevan Merino MD - Last Filed: 03/02/24 19:25> [facility] MDM Narrative Medical decision making narrative: Patient presenting today after having a urinary culture come back positive today for Klebsiella pneumoniae. She was called from the urgent care and urged to come into the ED for IV antibiotics. Patient does not have any acute complaints. She has a history of mild cognitive impairment and does have a caregiver who reports that she noticed green-tinged urine a few days ago when bathing her. Patient is well-appearing and in no acute distress, her vitals are unremarkable. Patient has been given a dose of Zosyn here, labs will be obtained. I did speak with the pharmacist he reports that cefdinir would provide adequate coverage for Klebsiella pneumoniae. CBC is unremarkable, her BMP shows a BUN of 23, otherwise is unremarkable. UA shows 25 leukocytes, 0 bacteria, 0 WBCs. She will be given a course of cefdinir for home, urinary culture has been obtained here. I did encourage that she follow-up with her PCP, return instructions were discussed and patient discharged home in stable condition. Dr. Merino: I have personally performed a face to face assessment of the patient and have reviewed the SOUTH Note. I performed a substantive portion of the visit including all aspects of the following. My moon findings include: History is reported UTI/green urine, seen at urgent care and called with urine culture positive for Klebsiella pneumonia. Exam is afebrile. Vital signs noted. Nontoxic-appearing. Regular rate and rhythm. Abdomen soft nontender with normoactive bowel sounds. Neurological examination nonfocal and nonlateralizing. Positive anxiety. Medical Decision Making: Discussed with pharmacist. Check labs. Check UA. Urinalysis negative for white cells. Urine culture sent. Patient started on antibiotics for Klebsiella pneumonia. Was not felt that she requires admission for IV antibiotics as Klebsiella pneumoniae is sensitive to multiple oral medications according to discussion with the pharmacist by [place]. Patient is motivated for discharge regardless. Urine cultures pending. Disposition is discharged home in stable condition. Other additions or changes: [None] History & Record Review Discussion w/independent historian: Other (Caregiver) Lab Data Labs: Laboratory Results - last 24 hr 03/02/24 03/02/24 13:30 14:26 WBC 9.6 RBC 5.03 Hgb 14.5 Hct 46.4 MCV 92.2 MCH 28.8 MCHC 31.3 L RDW Std Deviation 38.8 RDW Coeff of [place] 11.5 L Plt Count 208 MPV 11.0 Immature Gran % (Auto) 0.200 Neut % (Auto) 64.6 Lymph % (Auto) 21.9 [place] % (Auto) 11.1 H Eos % (Auto) 1.8 Baso % (Auto) 0.4 Absolute Neuts (auto) 6.2 Absolute Lymphs (auto) 2.11 Nucleated RBC % 0 Sodium 140 Potassium 3.9 Chloride 104 Carbon Dioxide 32.0 Anion Gap 5 BUN 23 H Creatinine 0.80 Estim Creat Clear Calc 58.65 Est GFR (MDRD) Af Amer 92 Est GFR (MDRD) Non-Af 76 BUN/Creatinine Ratio 28.9 H Glucose 123 H Calcium 9.6 Urine Color Yellow Urine Clarity Clear Urine pH 6.0 Ur Specific [place] 1.020 Urine Protein Negative Urine Glucose (UA) Normal Urine Ketones Negative Urine Occult Blood Negative Urine Nitrite Negative Urine Bilirubin Negative Urine Urobilinogen Normal Ur Leukocyte Esterase 25 H Urine RBC 0-5 SEEN Urine WBC 0-5 SEEN Ur Squamous Epith Cells 0-5 SEEN Urine Bacteria 0 SEEN Urine Mucus 0 SEEN Management Discussion w/another healthcare provider: Pharmacist Discharge Plan Triage Chief Complaint: Complaint ED Midlevel Provider: Pooja Wisdom ED Provider: Stevan Merino Dx/Rx/DC Orders Clinical Impression: UTI (urinary tract infection) Instructions: Urinary Tract Infections in Women Prescriptions: New cefdinir 300 mg capsule 300 mg PO BID Qty: 10 0RF No Action (DME) Med Alert Button See Rx Instructions .Route .MEDSUPPLY Qty: 1 0RF Rx Instructions: As directed aspirin 81 mg tablet,delayed release (DR/EC) See Rx Instructions .ROUTE .COMPLEX Qty: 60 4RF Dose Instruction: TAKE 1 TABLET BY MOUTH DAILY Rx Instructions: TAKE 2 TABLETS BY MOUTH DAILY donepezil 10 mg tablet See Rx Instructions .ROUTE .COMPLEX Qty: 30 4RF Dose Instruction: TAKE 1 TABLET BY MOUTH AT BEDTIME Rx Instructions: TAKE 1 TABLET BY MOUTH AT BEDTIME cholecalciferol (vitamin D3) 1,250 mcg (50,000 unit) capsule 1,250 mcg PO QMONTH Qty: 1 4RF desipramine 100 MG tablet 100 mg PO QHS rosuvastatin 10 MG tablet 10 mg PO QHS sertraline 100 mg tablet 150 mg PO DAILY Rx Instructions: take one & 1/2 tab at bedtime calcium carbonate 500 mg calcium (1,250 mg) tablet,chewable 1,000 mg PO DAILY aripiprazole 5 mg tablet 5 mg PO DAILY melatonin 5 mg tablet 5 mg PO QHS prednisone 20 mg Tablet See Taper PO BREAKFAST Qty: 32 0RF Taper: Prednisone Taper 60 mg WITH BREAKFAST for 3 Days and 0 Hour 50 mg WITH BREAKFAST for 3 Days and 0 Hour 40 mg WITH BREAKFAST for 3 Days and 0 Hour 30 mg WITH BREAKFAST for 3 Days and 0 Hour 20 mg WITH BREAKFAST for 3 Days and 0 Hour 10 mg WITH BREAKFAST for 3 Days and 0 Hour ipratropium-albuterol 0.5 mg-3 mg(2.5 mg base)/3 mL Solution For Nebulization 3 ml inhalation Q6H Qty: 0 0RF amlodipine 10 mg Tablet 10 mg PO DAILY Qty: 0 0RF neomycin-polymyxin B-dexameth 3.5mg/mL-10,000 unit/mL-0.1 % Drops,Suspension 4 drp otic (ear) 4X/DAY 7 Days Qty: 0 0RF amoxicillin-pot clavulanate 875-125 mg Tablet 1 tab PO BIDCM 4 Days Qty: 8 0RF guaifenesin [Mucus Relief ER] 1,200 mg Tablet Extended Release 12hr 1,200 mg PO BID 7 Days Qty: 0 0RF (DME) Rollator See Rx Instructions .Route .MEDSUPPLY Qty: 1 0RF Rx Instructions: Use as directed risperidone [Risperdal] 0.5 mg tablet 0.5 mg PO QHS Qty: 30 0RF Primary Care Provider: Fracisco Fowler Chi Referrals: Fracisco Fowler Chi, MD [Primary Care Provider] - 3-5 Days Activity Restrictions/Additional Instructions: Follow-up with your PCP and return for any other concerns. Print Language: Other Disposition Disposition: Home, Self Care Discharge Date/Time: 03/02/24 16:20
[2024-03-02 14:09] LABS: Anion Gap 5 (5-15); BUN 23 mg/dL (7-18); BUN/Creat Ratio 28.9 RATIO (10-20); Calcium,Total 9.6 mg/dL (8.5-10.1); Chloride 104 mmol/L (98-107); EST Glomerular Filtration Rate 76 mL/min (>60); Est Glom Filt Rate - Afr Amer 92 mL/min (>60); Estimated Creatinine Clearance 58.65 ml/min; Glucose 123 mg/dL (74-106); Potassium 3.9 mmol/L (3.5-5.1); Sodium Level 140 mmol/L (136-145)
[2024-03-02 14:13] VITALS: BP 153/83; PULSE 83; RESP 16; TEMP 36.4; O2SAT 96
[2024-03-02] MEDS: Piperacil/Tazobactam 3.375 GM in 0.9% Normal Saline (50mL MB+) 50 ML IV (14:28)
[2024-03-02 14:31] LABS: Bacteria 0 SEEN /hpf (None Seen); Mucous, Urine 0 SEEN /hpf (<or=2+)
[2024-03-02 14:37] LABS: Color, Urine Yellow (Yellow); Glucose, Dipstick Normal (Normal); Ketone-Dipstick Negative (Negative); Leukocyte Esterase-Dipstick 25 /ul (Negative); Nitrite-Dipstick Negative (Negative); Occult Blood-Urine Negative /ul (Negative); Protein-Dipstick Negative (Negative); Urine Bilirubin Dipstick Negative (Negative); Urine Clarity Clear (Clear); Urine Urobilinogen Normal (Normal)
[2024-03-02 15:00] VITALS: BP 140/93; PULSE 79; RESP 16; TEMP 36.7; O2SAT 97
[2024-03-02 15:09] VITALS: BP 140/93; PULSE 79; RESP 16; O2SAT 97
[2024-03-02 15:19] LABS: Squamous Epithelial Cells - UA 0-5 SEEN /hpf (5-10)
[2024-03-02 15:20] LABS: White Blood Cells 0-5 SEEN /hpf (0-5)
[2024-03-02 15:21] LABS: Red Blood Cells-Urine 0-5 SEEN /hpf (0-5)
[2024-03-02 16:19] VITALS: BP 142/89; PULSE 83; RESP 16; TEMP 36.5; O2SAT 98
== END 2024-03-02 16:20 | disposition home or self-care (01) ==
PROVIDERS: Physician Assistant; Emergency Provider Emergency Medicine; PCP Family Medicine Geriatric Medicine; Visit Provider Emergency Medicine
DX: N39.0 Urinary tract infection, site not specified (principal); G21.9 Secondary parkinsonism, unspecified; B96.1 Klebsiella pneumoniae [K. pneumoniae] as the cause of diseases classified elsewhere; I10 Essential (primary) hypertension; F17.210 Nicotine dependence, cigarettes, uncomplicated; Z79.899 Other long term (current) drug therapy
CPT/HCPCS: 80048; 81001; 85025; 87077; 87086; 87088; 87186; 96365; 99284; J7030; A4216

== ENCOUNTER → 2024-04-14 | Outpatient (CLI) | payer MEDICARE, MEDICAID, SELFPAY ==
--- NOTE | 2024-04-14 09:52 | ECHOD_ITS ---
Reason For Study: Arrhythmia Procedure This was a 2D Doppler, Color Flow transthoracic echocardiogram. Exam performed in department. Left Ventricle Normal LV size. Left ventricular systolic function is normal. The left ventricular ejection fraction is 65 %. Stage 1 diastolic dysfunction. No regional wall motion abnormalities noted. Right Ventricle Normal RV size. Normal systolic function. Atria Normal left atrium. Normal right atrium. Mitral Valve Posterior leaflet mitral valve prolapse. Tricuspid Valve Normal tricuspid valve. Mild to moderate (1-2+) tricuspid valve insufficiency. Pulmonary artery systolic pressure is 48 mmHg. Aortic Valve Trisinus/trileaflet aortic valve. Mild focal aortic valve calcification. Pulmonic Valve Normal pulmonic valve. Great Vessels Normal aortic root. The pulmonary artery is normal size. Inferior vena cava collapse with respiration. Pericardium/Pleural No pericardial effusion. MMode/2D Measurements & Calculations LVIDd: 3.7 cm IVSd: 1.3 cm LVOT diam: 2.0 cm LVIDs: 2.3 cm LVPWd: 0.87 cm LVOT area: 3.1 cm2 RVDd: 3.0 cm FS: 38.5 % Ao root diam: 2.8 cm LAV(MOD-bp): 32.6 ml LVAd ap4: 21.0 cm2 LAV(MOD-bp) Indexed: 19.1 ml/m2 LVLd ap4: 7.2 cm LAV(MOD-sp2): 34.6 ml EDV(MOD-sp4): 50.4 ml LAV(MOD-sp4): 30.3 ml EDV(sp4-el): 52.1 ml LVAs ap4: 10.6 cm2 LVLs ap4: 5.5 cm ESV(MOD-sp4): 17.1 ml ESV(sp4-el): 17.5 ml EF(MOD-sp4): 66.1 % EF(sp4-el): 66.5 % SV(MOD-sp4): 33.3 ml SV(sp4-el): 34.7 ml LA A4 area: 12.9 cm2 SI(MOD-sp4): 19.5 ml/m2 LA dimension(2D): 3.8 cm RA A4 area: 13.4 cm2 TAPSE: 1.9 cm Time Measurements MV dec time: 0.28 sec Doppler Measurements & Calculations MV E max rl: 69.3 cm/sec Lat Peak E' Rl: 5.7 cm/sec Med Peak E' Rl: 5.1 cm/sec MV A max rl: 99.7 cm/sec E/E' lat: 12.1 E/E' med: 13.6 MV E/A: 0.69 MV V2 max: 116.3 cm/sec MV P1/2t max rl: 79.6 cm/sec Ao V2 max: 197.5 cm/sec MV max P.4 mmHg MV P1/2t: 88.4 msec Ao max P.6 mmHg MV V2 mean: 52.7 cm/sec Ao V2 mean: 137.2 cm/sec MV mean P.4 mmHg MV dec slope: 263.8 cm/sec2 Ao mean P.7 mmHg MV V2 VTI: 28.3 cm MVA(P1/2t): 2.5 cm2 Ao V2 VTI: 37.3 cm AV (velocity ratio): 0.66 MVA(VTI): 2.7 cm2 TIN(I,D): 2.1 cm2 TIN(V,D): 1.9 cm2 LV V1 max: 121.5 cm/sec SV(LVOT): 77.0 ml PA V2 max: 97.9 cm/sec LV V1 max P.9 mmHg LV V1 mean P.5 mmHg LV V1 mean: 87.6 cm/sec LV V1 VTI: 24.6 cm TR max rl: 332.7 cm/sec TR max P.3 mmHg ECHO/Echo Complete Interpretation Summary Normal LV size. Left ventricular systolic function is normal. The left ventricular ejection fraction is 65 %. Stage 1 diastolic dysfunction. Pulmonary artery systolic pressure is 48 mmHg. Ordering Physician: Alejandro Hernández Referring Physician: Alejandro Hernández Performed By: Espinoza Horowitz RCS
[2024-04-14 11:42] LABS: Red Blood Cells-Urine 0 SEEN /hpf (0-5)
[2024-04-14 12:49] LABS: Color, Urine Yellow (Yellow); Glucose, Dipstick Normal (Normal); Ketone-Dipstick 5 mg/dl (Negative); Leukocyte Esterase-Dipstick 25 /ul (Negative); Nitrite-Dipstick Negative (Negative); Occult Blood-Urine Negative /ul (Negative); Protein-Dipstick 30 mg/dl (Negative); Specific Gravity, Urine 1.025 (1.002-1.030); Urine Clarity Sl. Cloudy (Clear); Urine Urobilinogen Normal (Normal)
[2024-04-14 12:51] LABS: Urine Bilirubin Dipstick 1 mg/dL (Negative)
[2024-04-14 13:34] LABS: Fine Granular Cast- Urine 0-5 SEEN /lpf (0-5); Hyaline Cast 0-5 SEEN /lpf (0-5); Mucous, Urine 2+ /hpf (<or=2+)
[2024-04-14 13:36] LABS: Squamous Epithelial Cells - UA 5-10 SEEN /hpf (5-10)
[2024-04-14 13:37] LABS: Amorphous Sediment 1+ URATE; Bacteria RARE /hpf (None Seen)
[2024-04-14 13:38] LABS: White Blood Cells 0-5 SEEN /hpf (0-5)
== END | disposition home or self-care (01) ==
PROVIDERS: PCP Family Medicine Geriatric Medicine; Referring Provider Internal Medicine Cardiovascular Disease; Visit Provider Internal Medicine Cardiovascular Disease
DX: I07.1 Rheumatic tricuspid insufficiency (principal); I10 Essential (primary) hypertension; N39.0 Urinary tract infection, site not specified
CPT/HCPCS: 81001; 87086; 87088; 93306

== ENCOUNTER → 2024-08-11 | Outpatient (CLI) | payer MEDICARE, MEDICAID, SELFPAY ==
[2024-08-11 10:30] LABS: Absolute Lymphocyte Count 2.37 X10^3/uL (0.83-4.51); Absolute Neutrophil Count 5.2 X10^3/uL (2.0-7.7); Basophil# 0.08 X10^3/uL; Basophil% 0.9 % (0-1); Eosinophil# 0.35 X10^3/uL; Hematocrit 49.3 % (37-47); Hemoglobin 15.5 g/dL (12.0-15.0); Lymphocyte # 2.37 X10^3/ul (0.83-4.51); Lymphocyte % 27.2 % (19-41); Mean Corp Hgb Conc 31.4 g/dL (32-36); Mean Corpuscular Hgb 29.2 pg (27.0-32.0); Mean Corpuscular Volume 92.8 fL (81-99); Mean Platelet Vol. 10.9 fl (6.2-12.0); Monocyte# 0.71 X10^3/uL; Monocyte% 8.2 % (0-10); NRBC Flagged by Analyzer 0 % (0-5); Neutrophil # 5.18 X10^3/uL (2.7-7.7); Neutrophil % 59.5 % (47-70); Platelet Count 227 K/mm3 (150-450); RBC Distribution Width CV 11.9 % (11.6-14.6); RBC Distribution Width SD 40.3 fl (35.1-43.9); Red Blood Count 5.31 M/mm3 (4.2-5.4); White Blood Count 8.7 K/mm3 (4.4-11.0)
[2024-08-11 13:09] LABS: ALB/GLOB Ratio 1.4 RATIO (0.9-2.4); AST(SGOT) 24 U/L (<=31); Alanine Aminotransfer ALT/SGPT 20 U/L (<=34); Albumin, Serum 4.2 g/dL (3.4-4.8); Alkaline Phosphatase 149 U/L (35-104); Anion Gap 12 (5-15); BUN 16 mg/dL (4-19); Calcium,Total 9.7 mg/dL (7.6-11.0); Carbon Dioxide 27.1 mmol/L (21.0-32.0); Chloride 100 mmol/L (98-108); Creatinine, Serum 0.89 mg/dL (0.70-1.20); EST Glomerular Filtration Rate 70 (>60); Globulin 3.1 g/dL (2.2-4.2); Glucose 149 mg/dL (70-99); Potassium 4.1 mmol/L (3.3-5.1); Protein, Total 7.3 g/dL (5.9-8.4); Sodium Level 139 mmol/L (133-145); Vitamin D,25 Hydroxy 64.5 ng/mL (30-100)
[2024-08-11 21:40] LABS: Cholesterol 162 mg/dL (<=200); High Density Lipoprotein 73 mg/dL; Low Density Lipoprotein Calc. 70 mg/dL; Triglycerides 91 mg/dL; Very Low Density Lipoprotein 18 mg/dL (5-40); cholesterol:hdl ratio screen 2.21
== END | disposition home or self-care (01) ==
LOC: POLAB3 10:05
PROVIDERS: PCP Family Medicine Geriatric Medicine; Visit Provider Family Medicine Geriatric Medicine
DX: E78.5 Hyperlipidemia, unspecified (principal); I10 Essential (primary) hypertension; E55.9 Vitamin D deficiency, unspecified
CPT/HCPCS: 36415; 80053; 80061; 82306; 84443; 85025

== ENCOUNTER → 2024-08-18 | Outpatient (CLI) | payer MEDICARE, MEDICAID, SELFPAY ==
--- NOTE | 2024-08-18 13:15 | BI_ITS ---
EXAM: SCRN MAMM (CAD)W/ALIS BILAT 08/18/2024 CLINICAL HISTORY: F, Age 68 y/o , SCREENING TECHNIQUE: Bilateral Diagnostic digital breast tomosynthesis with 2D and 3D images. Computer aided detection. COMPARISON: Prior exam(s) dated 08/09/2022. FINDINGS: TISSUE DENSITY: The breast composition is heterogeneously dense which can obscure small breast masses. This type of breast parenchymal pattern does decrease the sensitivity of mammography. Bilateral Breast Mammographic Findings: There are no suspicious masses, suspicious cluster of microcalcifications, architectural distortion or secondary sign of malignancy identified in either breast. BI/SCRN MAMM (CAD)W/ALIS BILAT IMPRESSION: Right Breast: BIRADS 1 NEGATIVE. Left Breast: BIRADS 1 NEGATIVE. OVERALL FINAL ASSESSMENT: BIRADS 1 NEGATIVE. RECOMMENDATION: Routine annual follow-up in 1 Year A letter with findings and recommendations will be mailed to the patient. Reading Location: [id number]
== END | disposition home or self-care (01) ==
PROVIDERS: PCP Family Medicine Geriatric Medicine; Referring Provider Family Medicine Geriatric Medicine; Visit Provider Family Medicine Geriatric Medicine
DX: Z12.31 Encounter for screening mammogram for malignant neoplasm of breast (principal)
CPT/HCPCS: 77063; 77067

== ENCOUNTER → 2024-09-08 | Outpatient (CLI) | payer MEDICARE, MEDICAID, SELFPAY ==
[2024-09-08 13:01] LABS: Absolute Lymphocyte Count 2.55 X10^3/uL (0.83-4.51); Absolute Neutrophil Count 6.1 X10^3/uL (2.0-7.7); Basophil# 0.07 X10^3/uL; Basophil% 0.7 % (0-1); Eosinophils% 3.8 % (0-5); Hemoglobin 14.9 g/dL (12.0-15.0); Lymphocyte # 2.55 X10^3/ul (0.83-4.51); Lymphocyte % 24.5 % (19-41); Mean Corp Hgb Conc 31.7 g/dL (32-36); Mean Corpuscular Hgb 29.1 pg (27.0-32.0); Mean Corpuscular Volume 91.8 fL (81-99); Mean Platelet Vol. 11.1 fl (6.2-12.0); Monocyte% 11.5 % (0-10); NRBC Flagged by Analyzer 0 % (0-5); Neutrophil # 6.14 X10^3/uL (2.7-7.7); Platelet Count 225 K/mm3 (150-450); RBC Distribution Width CV 11.6 % (11.6-14.6); RBC Distribution Width SD 39.5 fl (35.1-43.9); Red Blood Count 5.12 M/mm3 (4.2-5.4); White Blood Count 10.4 K/mm3 (4.4-11.0)
[2024-09-08 13:04] LABS: Color, Urine Yellow (Yellow); Glucose, Dipstick Normal (Normal); Ketone-Dipstick 5 mg/dl (Negative); Leukocyte Esterase-Dipstick 25 /ul (Negative); Nitrite-Dipstick Negative (Negative); Occult Blood-Urine Negative /ul (Negative); Protein-Dipstick 30 mg/dl (Negative); Specific Gravity, Urine 1.025 (1.002-1.030); Urine Clarity Sl. Cloudy (Clear); Urine Urobilinogen 1 mg/dl (Normal)
[2024-09-08 13:06] LABS: Urine Bilirubin Dipstick 1 mg/dL (Negative)
[2024-09-08 13:46] LABS: Anion Gap 10 (5-15); BUN 16 mg/dL (4-19); BUN/Creat Ratio 18.7 RATIO (10-20); Calcium,Total 9.8 mg/dL (7.6-11.0); Chloride 100 mmol/L (98-108); Creatinine, Serum 0.88 mg/dL (0.70-1.20); EST Glomerular Filtration Rate 71 (>60); Glucose 100 mg/dL (70-99); Potassium 4.2 mmol/L (3.3-5.1); Sodium Level 139 mmol/L (133-145)
== END | disposition home or self-care (01) ==
LOC: LAB 11:58
PROVIDERS: PCP Family Medicine Geriatric Medicine; Referring Provider Family Medicine Geriatric Medicine; Visit Provider Family Medicine Geriatric Medicine
DX: I95.9 Hypotension, unspecified (principal); R32 Unspecified urinary incontinence; R35.0 Frequency of micturition
CPT/HCPCS: 36415; 80048; 81002; 85025; 87086; 87088

== ENCOUNTER → 2024-09-11 | Outpatient (CLI) | payer MEDICARE, MEDICAID, SELFPAY ==
--- NOTE | 2024-09-11 12:56 | US_ITS ---
PROCEDURE: KIDNEY AND BLADDER 09/11/2024 REASON FOR EXAM: INCONTINENCE TECHNIQUE: Bilateral renal ultrasound. COMPARISON: None FINDINGS: Kidneys: Normal renal sizes, parenchymal thicknesses, and echotextures. [place]: No hydronephrosis. Cysts or Masses: No cysts or large solid renal masses. RIGHT Kidney Size: 9.5 cm x 5 cm x 4.6 cm Volume: 114.7 mL Cortical Thickness (if discernible): 1.4 cm (>6mm is normal) LEFT Kidney Size: 10.3 cm x 4.7 cm x 4.5 cm Volume: 114.3 mL Cortical Thickness (if discernible): 1.4 cm (>6mm is normal) The urinary bladder is empty. US/Kidney and Bladder IMPRESSION: NORMAL RENAL ULTRASOUND. Reading Location: [place] [id number]
== END | disposition home or self-care (01) ==
PROVIDERS: PCP Family Medicine Geriatric Medicine; Referring Provider Family Medicine Geriatric Medicine; Visit Provider Family Medicine Geriatric Medicine
DX: R32 Unspecified urinary incontinence (principal); R35.0 Frequency of micturition
CPT/HCPCS: 76770; 87086; 87088

== ENCOUNTER → 2025-02-09 | Outpatient (CLI) | payer MEDICARE, MEDICAID, SELFPAY ==
[2025-02-09 10:29] LABS: Hematocrit 47.1 % (37-47); Hemoglobin 14.9 g/dL (12.0-15.0); Immature Granulocytes Count 0.030 X10^3/uL (0.0-0.0); Mean Corp Hgb Conc 31.6 g/dL (32-36); Mean Corpuscular Volume 91.8 fL (81-99); Mean Platelet Vol. 10.5 fl (6.2-12.0); NRBC Flagged by Analyzer 0 % (0-5); Platelet Count 229 K/mm3 (150-450); RBC Distribution Width CV 12.1 % (11.6-14.6); RBC Distribution Width SD 40.8 fl (35.1-43.9); Red Blood Count 5.13 M/mm3 (4.2-5.4); White Blood Count 10.4 K/mm3 (4.4-11.0)
[2025-02-09 11:04] LABS: AST(SGOT) 24 U/L (<=31); Alanine Aminotransfer ALT/SGPT 22 U/L (<=34); Albumin, Serum 4.1 g/dL (3.4-4.8); Alkaline Phosphatase 143 U/L (35-104); Anion Gap 10 (5-15); BUN 14 mg/dL (4-19); BUN/Creat Ratio 20.0 RATIO (10-20); Calcium,Total 9.7 mg/dL (7.6-11.0); Carbon Dioxide 29.1 mmol/L (21.0-32.0); Chloride 102 mmol/L (98-108); Cholesterol 141 mg/dL (<=200); Globulin 3.0 g/dL (2.2-4.2); Glucose 130 mg/dL (70-99); Low Density Lipoprotein Calc. 57 mg/dL; Potassium 3.5 mmol/L (3.3-5.1); Triglycerides 60 mg/dL; Very Low Density Lipoprotein 12 mg/dL (5-40); cholesterol:hdl ratio screen 1.97
[2025-02-09 18:21] LABS: Xtra Tube Kwok EXTRA TUBE
== END | disposition home or self-care (01) ==
LOC: POLAB3 10:20
PROVIDERS: PCP Family Medicine Geriatric Medicine; Visit Provider Family Medicine Geriatric Medicine
DX: I10 Essential (primary) hypertension (principal); E03.9 Hypothyroidism, unspecified; E78.5 Hyperlipidemia, unspecified
CPT/HCPCS: 36415; 80053; 80061; 84443; 85025